=== PATIENT | male | born 1945 | race Hispanic/Latino ===

== ENCOUNTER 2017-08-28 11:24 | Emergency (ER) | payer MEDICARE ==
[~2017-08-28] VITALS: Ht 165.1 cm; Wt 85.7 kg
[~2017-08-28 11:24] MED LIST: ALLOPURINOL100 MG PO; ALLOPURINOL300 MG PO; ASPIR 8181 MG PO; ATORVASTATIN CA20 MG PO; BACLOFEN10 MG PO; BRILINTA90 MG; BRILINTA90 MG PO; CALCIUM ACETAT667 M1 PO; CALCIUM ACETAT667 MG PO; CEPHALEXIN500 MG PO; CLINDAMYCIN HC150 MG PO; CLONIDINE HCL0.1 MG PO; DIALYVITE TABL1 EACH PO; ECOTRIN325 MG PO; FERROUS SULFAT325 M1 PO; FLONASE16 GM; FUROSEMIDE40 MG PO; GABAPENTIN300 MG PO; GLIMEPIRIDE2 MG PO; HYDRALAZINE HCL50 MG PO; HYDROCODON-ACE1 EACH; LANTUS100 UNIT/1 SQ; LASIX40 MG PO; LIPITOR40 MG PO; METOCLOPRAMIDE10 MG PO; METOPROLOL TART25 MG PO; METOPROLOL TART50 MG PO; MIDODRINE HCL2.5 MG PO; NIFEDIPINE ER90 M1 PO; OMEPRAZOLE40 MG; OMEPRAZOLE40 MG PO; PENTOXIFYLLINE400 MG PO; PLAVIX75 MG PO; RENAGEL800 MG PO; RENVELA0.8 GM; RENVELA800 MG PO; SODIUM BICARBO650 MG PO; SYMBICORT 16010.2 GM INH; TOPROL XL25 MG PO; TUMS200 MG PO; ULTRAM50 MG PO; VITAMIN D350000 UNIT PO; ZEMPLAR1 MCG PO
[2017-08-28] MEDS ORDERED: FENTANYL CITRATE/PF 100MCG/2 ML INJ IV ONE (11:45)
[2017-08-28 12:06] LABS: BASOPHILS % 0.6 % (0.0-1.0); EOSINOPHILS # (AUTO) 0.2 (0.0-0.4); EOSINOPHILS % 3.1 % (0.0-6.0); HEMATOCRIT 35.6 % (38.2-49.6); LYMPHOCYTES # (AUTO) 0.8 (1.0-3.2); LYMPHOCYTES % 16.9 % (18.0-39.1); MEAN CORPUSCULAR HGB CONC 33.7 g/dL (31-35); MEAN CORPUSCULAR VOLUME 100.8 fL (81-99); MONOCYTES # (AUTO) 0.4 (0.2-0.8); MONOCYTES % 8.6 % (4.4-11.3); NEUTROPHILS # (AUTO) 3.4 (2.1-6.9); NEUTROPHILS % 70.4 % (38.7-80.0); PLATELET COUNT 118 x10e3/uL (140-360); RED BLOOD COUNT 3.53 x10e6/uL (4.3-5.7); RED CELL DISTRIBUTION WIDTH 14.6 % (11.7-14.4)
[2017-08-28 12:09] LABS: INR 1.1; PROTHROMBIN TIME 13.4 seconds (11.9-14.5)
[2017-08-28 12:10] LABS: PARTIAL THROMBOPLASTIN TIME 35.1 seconds (23.8-35.5)
[2017-08-28 12:17] LABS: ALBUMIN 3.8 g/dL (3.5-5.0); ALBUMIN/GLOBULIN RATIO 0.9 (0.8-2.0); ANION GAP 19.3 mmol/L (8-16); CALCIUM 9.3 mg/dL (8.4-10.2); CREATININE, SERUM 6.35 mg/dL (0.72-1.25); MAGNESIUM 2.3 MG/DL (1.3-2.1); PHOSPHORUS 3.3 MG/DL (2.3-4.7); POTASSIUM 4.3 mmol/L (3.5-5.1)
[2017-08-28 14:50] VITALS: BP 110/68
== END 2017-08-28 15:31 | disposition short-term general hospital (02) ==
LOC: ER 11:24
DX: M79.671 Pain in right foot (principal); R26.2 Difficulty in walking, not elsewhere classified; I99.8 Other disorder of circulatory system; I12.0 Hypertensive chronic kidney disease with stage 5 chronic kidney disease or end stage renal disease; N18.6 End stage renal disease; Z99.2 Dependence on renal dialysis; F17.210 Nicotine dependence, cigarettes, uncomplicated
CPT/HCPCS: 36415; 80053; 83735; 84100; 85025; 85610; 85730; 93926; 99284

== ENCOUNTER 2017-11-12 00:24 | Inpatient (IN) | payer MEDICARE ==
[2017-11-12] VITALS (7 sets, daily range): BP systolic 89–132; BP diastolic 51–84
[~2017-11-12] VITALS: Ht 165.1 cm; Wt 89.8 kg
--- OUTSIDE RECORDS SUMMARY | 2017-11-12 00:27 | XMS REPORT | Clinical Summary ---
Author Author NATI [facility] Address Unknown Phone Unavailable Care Team Providers Care Livestock Yard Attendant Name Role Phone PCP Unavailable Allergies Active Allergy Reactions Severity Noted Date Comments Codeine 09/04/2017 Current Medications Prescription Sig. Disp. Refills Start End Date Status Date gabapentin (NEURONTIN) Take 300 mg by mouth Active 300 MG capsule daily. sevelamer (RENVELA) 800 Take 1,600 mg by mouth 3 Active mg tablet (three) times daily with meals. aspirin 81 MG chewable Take 1 tablet (81 mg 30 tablet 3 09/05/19 Active tablet total) by mouth daily. 16 atorvastatin (LIPITOR) 40 Take 1 tablet (40 mg 30 tablet 3 09/05/19 Active MG tablet total) by mouth nightly. 16 midodrine (PROAMATINE) 5 Take 5 mg by mouth 3 Active MG tabletIndications: (three) times a week. before dialysis calcium acetate (PHOSLO) Take 667 mg by mouth 3 Active 667 mg capsule (three) times daily with meals. furosemide (LASIX) 40 MG Take 40 mg by mouth Take Active tablet one tablet Monday, Monday and Monday day of dialysis . HYDROcodone-acetaminophen Take 1 tablet by mouth Active (NORCO 10-325) 10-325 mg every 6 (six) hours as per tablet needed for Pain. insulin detemir (LEVEMIR) Inject 30 Units Active 100 unit/mL (3 mL) InPn subcutaneously every injection morning. metoclopramide HCl Take 10 mg by mouth 4 09/20/19 Discontin (REGLAN) 10 MG tablet (four) times daily as 18 ued needed for Nausea. pantoprazole (PROTONIX) Take 40 mg by mouth 09/20/19 Discontin 40 MG tablet daily. 18 ued furosemide (LASIX) 20 MG Take 40 mg by mouth every 09/20/19 Discontin tablet other day MON, WED, FRI. 18 ued DIALYSIS DAYS. benzonatate (TESSALON) Take 100 mg by mouth 08/28/19 Discontin 100 MG capsule every 4 (four) hours as 18 ued needed for Cough. insulin lispro (HUMALOG) Inject subcutaneously 3 08/28/19 Discontin 100 unit/mL injection (three) times daily 18 ued before meals. allopurinol (ZYLOPRIM) Take 1 tablet (300 mg 30 tablet 0 09/05/19 Discontin 300 MG tablet total) by mouth daily. 16 18 ued baclofen (LIORESAL) 10 MG Take 1 tablet (10 mg 30 tablet 3 09/05/19 08/28/19 Discontin tablet total) by mouth every 16 18 ued other day ON DIALYSIS DAYS. insulin detemir (LEVEMIR) Inject 30 Units 10 mL 0 09/05/19 09/20/19 Discontin 100 unit/mL injection subcutaneously nightly. 16 18 ued metoprolol (TOPROL-XL) 25 Take 0.5 tablets (12.5 mg 30 tablet 0 08/28/19 Discontin MG 24 hr tablet total) by mouth every 16 18 ued other day MON, MON, MON, SUN. NON DIALYSIS DAYS. clopidogrel (PLAVIX) 75 Take 75 mg by mouth 08/30/19 Discontin mg tablet daily. 18 ued HYDROcodone-acetaminophen Take 1 tablet by mouth 09/20/19 Discontin (NORCO 5-325) 5-325 mg every 4 (four) hours as 18 ued per tablet needed for Pain. ticagrelor (BRILINTA) 90 Take by mouth 2 (two) 08/28/19 Discontin mg Tab tablet times daily. 18 ued ticagrelor (BRILINTA) 90 Take 1 tablet (90 mg 30 tablet 0 08/30/19 09/14/19 Discontin mg Tab tablet total) by mouth 2 (two) 18 18 ued times daily. clopidogrel (PLAVIX) 75 Take 75 mg by mouth 09/14/19 Discontin mg tablet daily. 18 ued warfarin (COUMADIN) 1 MG Take 1 mg by mouth daily. 09/14/19 Discontin tablet 18 ued ticagrelor (BRILINTA) 60 Take 1 tablet (60 mg 60 tablet 0 09/14/19 10/14/19 mg Tab tablet total) by mouth 2 (two) 18 18 times daily for 30 days. pantoprazole (PROTONIX) Take 1 tablet (40 mg 30 tablet 0 09/20/19 40 MG tablet total) by mouth daily for 18 18 30 days. 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 ([facility]) 08/31/2015 Hypertension complicating diabetes ([facility]) 08/31/2015 ESRD (end stage renal disease) on dialysis ([facility]) 08/31/2015 Ischemic cardiomyopathy 08/31/2015 Chronic combined systolic and diastolic CHF (congestive heart failure) 08/31 ([facility]) Multi-vessel coronary artery stenosis 08/28/2015 Dialysis patient ([facility]) Encounters Date Type Specialty Care Team Description 09/19/2017 Office Visit Cardiology Naomi Olivas NP Chronic combined systolic and diastolic CHF (congestive heart failure) ([facility]) (Primary Dx) 09/07/2017 Procedure Pass 09/07/2017 Surgery Damaso Rey, BYPASS,FEMORAL-POPLITEAL 09/04/2017 [facility] Cardiology Reynaldo Stinson MD Critical ischemia of foot - Encounter Ace Foy MD (Primary Dx);Lower 09/15/2017 Arun Daigle MD extremity pain, anterior, LisseGeorge MD right;Bilateral popliteal artery aneurysm ([facility]);Dialysis patient ([facility]);End stage renal disease ([facility]);Ischemic rest pain of lower extremity ([facility]);Hypertension complicating diabetes ([facility]);Ischemic cardiomyopathy;Multi-vess el coronary artery stenosis;PAD (peripheral artery disease) ([facility]);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 ([facility]);Smoking;Hyperkalemi a 09/04/2017 Anesthesia BusterPhill MD Event 09/04/2017 Orders Only General Internal Medicine 09/04/2017 Procedure Pass 08/30/2017 Procedure Pass 08/28/2017 [facility] Internal Medicine Brendon Foy MD Chronic combined systolic - Encounter Shoshana Mai MD and diastolic CHF 08/30/2017 (congestive heart failure) (HCC);Aneurysm of right popliteal artery (HCC);Aneurysm of left popliteal artery (HCC);Atherosclerosis of qaw[place]angin artery of right lower extremity with rest pain (HCC);End stage renal disease (HCC);Bilateral popliteal artery aneurysm (HCC);Hypertension complicating diabetes (HCC);Ischemic cardiomyopathy;Ischemic rest pain of lower extremity (HCC) after 11/11/2016 Social History Tobacco Use Types Packs/Day Years Used Date Former Smoker 0.25 60 Quit: 08/22/2017 Smokeless Tobacco: Never Used Tobacco Cessation: Ready to Quit: Yes; Counseling Given: No Comments: i just need to say that I wont do it anymore Alcohol Use Drinks/Week oz/Week Comments No Sex Assigned at Date Recorded Not on file Last Filed Vital Signs Vital Sign Reading Time Taken Blood Pressure 128/58 09/19/2017 12:28 PM CDT Pulse 71 09/19/2017 12:28 PM CDT Temperature 37.1 C (98.8 F) 09/19/2017 12:28 PM CDT Respiratory Rate 16 09/19/2017 12:28 PM CDT Oxygen Saturation 100% 09/19/2017 12:28 PM CDT Inhaled Oxygen - - Concentration Weight 90.6 kg (199 lb 12.8 oz) 09/19/2017 12:28 PM CDT Height 165.1 cm (5' 5") 09/19/2017 12:28 PM CDT Body Mass Index 33.25 09/19/2017 12:28 PM CDT Plan of Treatment Health Maintenance Due Date Last Done Comments INFLUENZA VACCINE 04/09/2018 Implants Implanted Type Area Audio Tape Librarian Device Expiration Model / Identifier Date Serial / Lot Patch Vasc [place] 1.65mm 1x6in Graft/Patc Right: Leg CR 06/06/2022 [id number] / [id number] BARD:PERIPHERAL / Implanted: Qty: 1 on 09/07/[address] [facility] [id number] Damaso Rey MD [employer] 03/18/2016 [id number] Implanted: Qty: 1 on 09/04/2015 [employer] [id number] / / [id number] [employer] [place] 04/09/2016 [id number] Implanted: Qty: 1 on 09/04/2015 [employer] 0250 / / [id number] Procedures Procedure Name Priority Date/Time Associated Diagnosis Comments ENDOSCOPIC HARVEST,VEIN 09/07/2017 Popliteal artery aneurysm 11:30 AM SET KEY DRIVER (HCC) Case Notes RIGHT FEMORAL POPLITEAL BYPASS W/ENDOVENO HARVESTING LOWER EXTREMITY Special Needs (REQ 1:30) BYPASS,FEMORAL-POPLITEAL 09/07/2017 Popliteal artery aneurysm 11:30 AM SET KEY DRIVER (HCC) Case Notes RIGHT FEMORAL POPLITEAL BYPASS W/ENDOVENO HARVESTING LOWER EXTREMITY Special Needs (REQ 1:30) after 11/11/2016 Results * RHYTHM STRIP - SCAN (09/19/2017 7:50 AM) Only the most recent of 2 results within the time period is included. * Hemodialysis (09/15/2017 7:10 PM) Only the most recent of 6 results within the time period is included. Narrative Tito Jara RN 09/15/20177:10 PM Lab Results Component Value Date WBC 5.8 09/15/2017 HGB 9.0 (L) 09/15/2017 HCT 28.8 (L) 09/15/2017 MCV 104.3 (H) 09/15/2017 PLT 159 09/15/2017 Lab Results Component Value Date GLUCOSE 109 (H) 09/15/2017 CALCIUM 8.6 09/15/2017 NA 137 09/15/2017 K 4.2 09/15/2017 CO2 30 (H) 09/15/2017 CL 99 09/15/2017 BUN 42 (H) 09/15/2017 CREATININE 7.29 (H) 09/15/2017 Lab Results Component Value Date HEPBSAG Nonreactive 09/04/2017 Vitals: 09/15/17 1835 BP: 137/70 Pulse: 78 Resp: 24 Temp: 97.8 F (36.6 C) SpO2: HD x 4hrs. UF net 3L. Treatment tolerated well. V/S stable. * TRANSFUSION SERVICE REPORT - SCAN (09/15/2017 5:41 PM) Only the most recent of 7 results within the time period is included. * POC-Glucose meter (09/15/2017 12:47 PM) Only the most recent of 50 results within the time period is included. Component Value Ref Range POC-Glucose Meter 131 (H)Comment: TESTED AT [address] 70 - 110 mg /dL [facility] [address] Specimen Performing Laboratory Blood [address] [address] * Calcium, Ionized (09/15/2017 8:59 AM) Only the most recent of 4 results within the time period is included. Component Value Ref Range Calcium, Ion 1.02 (L) 1.12 - 1.27 mmol/L pH, Blood 7.39 Specimen [place]forming [place] [address] * CBC with platelet count + automated diff (09/15/2017 8:59 AM) Only the most recent of 14 results within the time period is included. Component Value Ref Range WBC 5.8 3.5 - 10.5 K/ L RBC 2.76 (L) 4.63 - 6.08 M/ L Hemoglobin 9.0 (L) 13.7 - 17.5 GM/DL Hematocrit 28.8 (L) 40.1 - 51.0 % MCV 104.3 (H) 79.0 - 92.2 fL MCH 32.6 (H) 25.7 - 32.2 pg MCHC 31.3 (L) 32.3 - 36.5 GM/DL RDW 18.5 (H) 11.6 - 14.4 % Platelets 159 150 - 450 K/CU MM MPV 9.9 9.4 - 12.4 fL nRBC 0 0 - 0 /100 WBC % Neutros 68 % % Lymphs 17 % % Monos 10 % % Eos 3 % % Baso 1 % # Neutros 3.93 1.78 - 5.38 K/ L # Lymphs 1.00 (L) 1.32 - 3.57 K/ L # Monos 0.56 0.30 - 0.82 K/ L # Eos 0.16 0.04 - 0.54 K/ L # Baso 0.03 0.01 - 0.08 K/ L Immature 1 0 - 1 % Granulocytes-Relative Specimen Performing [place] [address] * CBC with platelet count + automated diff (09/15/2017 8:59 AM) Only the most recent of 14 results within the time period is included. Specimen Performing Laboratory Blood Narrative The following orders were created for panel order CBC with platelet count + automated diff. Procedure Abnormality Status --------- - ------ CBC with platelet count ...[[id number]]AbnormalFinal result Please view results for these tests on the individual orders. * Phosphorus (09/15/2017 8:59 AM) Only the most recent of 9 results within the time period is included. Component Value Ref Range Phosphorus 3.1 2.3 - 4.7 mg/dL Specimen Performing [place] [address] * Magnesium (09/15/2017 8:59 AM) Only the most recent of 10 results within the time period is included. Component Value Ref Range Magnesium 2.0 1.6 - 2.6 mg/dL Specimen Performing [place] [address] * Basic Metabolic Panel (09/15/2017 8:59 AM) Only the most recent of 18 results within the time period is included. Component Value Ref Range Sodium 137 136 - 145 meq/L Potassium 4.2 3.5 - 5.1 meq/L Chloride 99 98 - 107 meq/L CO2 30 (H) 22 - 29 meq/L BUN 42 (H) 7 - 21 mg/dL Creatinine 7.29 (H) 0.57 - 1.25 mg/dL Glucose 109 (H) 70 - 105 mg/dL Calcium 8.6 8.4 - 10.2 mg/dL EGFR 7Comment: ESTIMATED GFR IS NOT ACCURATE mL/min/1.73 sq m CREATININE CLEARANCE IN PREDICTING GLOMERULAR FILTRATION RATE. ESTIMATED GFR IS NOT APPLICABLE FOR DIALYSIS PATIENTS. Specimen [place] [address] * Prepare Leuko-Red RBC (09/14/2017 11:54 PM) Only the most recent of 3 results within the time period is included. Component Value Ref Range Unit ABO O Pos UNIT NUMBER [id number] Status TRANSFUSED Blood Bank Product RED BLOOD CELLS PRODUCT CODE [id number] CROSSMATCH COMPATIBLE Specimen Performing Laboratory Other [facility] [place] * Transfuse Leuko-Red RBC (09/13/2017 1:03 PM) Only the most recent of 4 results within the time period is included. * Prepare RBC (09/13/2017 12:19 PM) Only the most recent of 2 results within the time period is included. Component Value Ref Range Unit ABO O Pos UNIT NUMBER [id number] Status READY Blood Bank Product RED BLOOD CELLS PRODUCT CODE [id number] CROSSMATCH COMPATIBLE Specimen Performing Laboratory [facility] [place] * Type and screen, automated (09/12/2017 10:23 AM) Only the most recent of 3 results within the time period is included. Component Value Ref Range ABO/RH AUTOMATED (BEAKER) O POSITIVE Ab Scrn NEGATIVE Specimen Performing Laboratory Blood [address] [address] * aPTT (09/09/2017 5:53 AM) Only the most recent of 20 results within the time period is included. Component Value Ref Range PTT 48.3 (H) 22.5 - 36.0 seconds Specimen Performing Laboratory Blood [address] [address] * Potassium (09/08/2017 12:52 PM) Component Value Ref Range Potassium 4.4 3.5 - 5.1 meq/L Specimen Performing Laboratory Blood [address] [address] * CBC (hemogram only) (09/08/2017 7:17 AM) Only the most recent of 3 results within the time period is included. Component Value Ref Range WBC 6.5 3.5 - 10.5 K/ L RBC 2.65 (L) 4.63 - 6.08 M/ L Hemoglobin 9.0 (L) 13.7 - 17.5 GM/DL Hematocrit 28.6 (L) 40.1 - 51.0 % MCV 107.9 (H) 79.0 - 92.2 fL MCH 34.0 (H) 25.7 - 32.2 pg MCHC 31.5 (L) 32.3 - 36.5 GM/DL RDW 14.8 (H) 11.6 - 14.4 % Platelets 104 (L) 150 - 450 K/CU MM MPV 10.3 9.4 - 12.4 fL nRBC 0 0 - 0 /100 WBC Specimen Performing Laboratory Blood [address] [address] * PT/aPTT (09/07/2017 9:05 PM) Only the most recent of 2 results within the time period is included. Component Value Ref Range Protime 14.6 11.7 - 14.7 seconds INR 1.1 <=5.9 PTT 40.4 (H) 22.5 - 36.0 seconds Specimen Performing Laboratory Blood [address] [address] Narrative RECOMMENDED COUMADIN/WARFARIN INR THERAPY RANGES STANDARD DOSE: 2.0 - 3.0 Includes: PROPHYLAXIS for venous thrombosis, systemic embolization; TREATMENT for venous thrombosis and/or pulmonary embolus. HIGH RISK: Target INR is 2.5-3.5 for patients with mechanical heart valves. * Prothrombin time/INR (09/07/2017 9:05 PM) Only the most recent of 5 results within the time period is included. Component Value Ref Range Protime 14.6 11.7 - 14.7 seconds INR 1.1 <=5.9 Specimen Performing Laboratory Blood [address] [address] Narrative RECOMMENDED COUMADIN/WARFARIN INR THERAPY RANGES STANDARD DOSE: 2.0 - 3.0 Includes: PROPHYLAXIS for venous thrombosis, systemic embolization; TREATMENT for venous thrombosis and/or pulmonary embolus. HIGH RISK: Target INR is 2.5-3.5 for patients with mechanical heart valves. * POC ACTIVATED CLOTTING TIME (09/07/2017 5:57 PM) Only the most recent of 2 results within the time period is included. Component Value Ref Range Activated Clotting Time 158Comment: TESTED AT [address] [place] [address] Specimen Performing Laboratory Blood [address] [address] * RRL Critical Labs (ABG,NA,K,H&H,GLU) (09/07/2017 5:13 PM) Only the most recent of 2 results within the time period is included. Specimen Performing Laboratory Blood Narrative The following orders were created for panel order RRL Critical Labs (ABG,NA,K,H& H,GLU). Procedure Abnormality Status --------- - ------ Blood gas, arterial[[id number]]Abnormal Final result Sodium Na-Stat Lab[[id number]] Abnormal Final result Potassium-Stat Lab[[id number]] Normal Final result Glucose-Stat Lab[[id number]] Abnormal Final result HGB/HCT (H&H)-Stat Lab[[id number]] Abnormal Final result Please view results for these tests on the individual orders. * Potassium-Stat Lab (09/07/2017 5:13 PM) Only the most recent of 2 results within the time period is included. Component Value Ref Range Potassium 4.7 3.6 - 5.5 meq/L Specimen Performing [place] [address] * Sodium Na-Stat Lab (09/07/2017 5:13 PM) Only the most recent of 2 results within the time period is included. Component Value Ref Range Sodium 134 (L) 135 - 148 meq/L Specimen Performing [place] [address] * Glucose-Stat Lab (09/07/2017 5:13 PM) Only the most recent of 2 results within the time period is included. Component Value Ref Range Glucose 66 (L) 70 - 110 mg/dL Specimen [place]forming [place] [address] * HGB/HCT (H&H)-Stat Lab (09/07/2017 5:13 PM) Only the most recent of 2 results within the time period is included. Component Value Ref Range Hemoglobin 10.4 (L) 13.0 - 16.8 g/dL Hematocrit 31.0 (L) 40.0 - 50.0 % Specimen Performing Laboratory Blood [address] [address] * Blood gas, arterial (09/07/2017 5:13 PM) Only the most recent of 2 results within the time period is included. Component Value Ref Range pH, Arterial 7.44 7.35 - 7.45 pCO2, Arterial 40 35 - 45 mmHg pO2, Arterial 123 (H) 80 - 90 mmHg O2 Sat, Arterial 98.7 (H) 96.0 - 97.0 % HCO3, Arterial 27 21 - 29 mmol/L Base Excess, Arterial 1.6 -2.0 - 3.0 mmol/L Patient Temperature 35.1 C FIO2 100.0 % Specimen Performing Laboratory Blood [facility] [address] [address] * ECHOCARDIOGRAM REPORT - SCAN (09/05/2017 6:50 PM) * 2D Echo W/Doppler(CW/PW/Color) (09/05/2017 12:15 PM) Component Value Ref Range Ejection Fraction Specimen Performing Laboratory [facility] ECHO HEARTLAB MKCKESSON CPACS Narrative Transthoracic Echocardiography Report (TTE) Demographics Patient NameSALINAS,Date of Study 09/05/2017 BRUNO Tidwell Male Visit [id number] Room Number 1110 Number Date of 4Referring Jun Mena Physician Age 72 year(s)Bank Appraiser JORGE LUIS Parra, RDCS,RVT,RDMS Interpreting Gabe Padilla MD Physician CECILE Tee Procedure Type of Study TTE procedure:2DECHO W DOPPLER(CW/PW/COLOR) (Routine) Indications:Acute Chest Pain/ Suspected CAD. Clinical History DMII, HTN, ICMP, PAD, CAD, ESRD HGB 10.5 HCT 32.1 % Height: 62 inches Weight: 88.9 kg (196 lbs) BSA: 1.9 m^2 BMI: 35.85 kg/m^2 HR: 75 bpm BP: 117/60 mmHg Summary The LV endocardium is partially visualized. Consider IV ultrasound enhancing agent for improved endocardial border detection. The left ventricle is chamber size (by vol index) is mildly enlarged. LVEF by Rosenbaum's method of disk assessment is severely reduced (20-24%) . The following segment(s) appear akinetic: inferolateral wall and likely apex. The other segments are severely hypokinetic. Grade 3 diastolic dysfunction (marked elevated LA pressure). Mild tricuspid regurgitation. Estimated peak systolic PA pressure is 55-60 mmHg . The estimated RA pressure by IVC dynamics 11-15mmHg . Signature Findings Left Ventricle The LV endocardium is partially visualized. Consider IV ultrasound enhancing agent for improved endocardial border detection. The left ventricle is chamber size (by vol index) is mildly enlarged. LVEF by Rosenbaum's method of disk assessment is severely reduced (20-24%) . The following segment(s) appear akinetic: inferolateral wall and likely apex. The other segments are severely hypokinetic. Grade 3 diastolic dysfunction ( marked elevated LA pressure). Left AtriumLA size is ndpa-td-tvncxbteto enlarged . Right VentricleRV chamber size is moderately enlarged . Global RV systolic function is depressed . Right Atrium RA cavity size is moderately enlarged . Aortic Valve Moderate AoV cusp thickening. Ywec-ue-jluvwywz AoV cusp calcification. Mild aortic stenosis. A trace of aortic regurgitation. Mitral Valve Dgoh-gx-hvqyelwf MV leaflet thickening. Mild mitral regurgitation. Tricuspid ValveMild TV leaflet thickening. Mild tricuspid regurgitation. Estimated peak systolic PA pressure is 55-60 mmHg . Pulmonic Valve PV is not well visualized; function appears normal by Doppler visualized. PericardiumNo significant pericardial effusion is visualized. IVC/SVC/PA/PV/PleuralThe estimated RA pressure by IVC dynamics 11-15mmHg . Chambers/Structures Left Atrium LA Volume: 75.69 ml LA Area: 23.53 cm^2 LA Vol. Index: 40 ml/m^2 Left Ventricle LVIDd: 6.31 cm LVIDs: 5.26 cm LV Septum Diastolic: 1.47 cm LV PW Diastolic: 1.66 cmLV FS: 16.6 % LVEDV Rosenbaum's:156.36 ml LVESV Rosenbaum's:117.65 ml LVEDVI: 82 ml/m^2 LVEF Rosenbaum's: 24.8 %LVESVI: 62 ml /m^2 LVOT Diameter: 2.08 cm Right Ventricle RV Diast Dim.: 4.96 cm Aorta Ao Root S of Lily.: 3.22 cm Vena Cava IVC Expirium: 2.11 cm Doppler/Quantitative Measurements Mitral Valve MV Peak E-Wave: 1.04 m/sMV Peak A-Wave: 0.34 m/s E/A Ratio: 3.06 Peak Gradient: 4.32 mmHg MV Alejandro. Peak: Tissue Doppler E' Lateral Velocity: 0.06 m/s E/E': 16.73 Aortic Valve Peak Velocity: 1.46 m/sMean Velocity: 1.03 m/s Peak Gradient: 8.53 mmHg Mean Gradient: 4.61 mmHg AV Area (continuity): 1.57 cm^2 AV VTI: 25.32 cm AV DVI: 0.46 LVOT Peak Velocity: 0.72 m/s Peak Gradient: 2.06 mmHg Mean Velocity: 0.44 m/s Mean Gradient: 0.9 mmHg LVOT Diameter: 2.08 cmLVOT VTI: 11.7 cm LVOT Area: 3.4 cm^2 LVOT SV:39.74 ml LVOT CO: 2.98 l/min LVOT CI: 1.57 l/min/m^2 Tricuspid Valve TR Velocity: 3.46 m/s TR Gradient: 47.83 mmHg Procedure Note Interface, External Ris In - 09/05/2017 6:20 PM SET KEY DRIVER Transthoracic Echocardiography Report (TTE) Demographics Patient Name PAUL, Date of Study 09/05/2017 BRUNO Tidwell Gender Male Visit Number [id number] Race Room Number 1110 Number Date of 1945 Referring Jun Mena Physician Age 72 year(s) Bank Appraiser JORGE LUIS Parra, RDCS,RVT,RDMS Interpreting Gabe Padilla MD Physician Fellow CECILE Lomas Procedure Type of Study TTE procedure:2DECHO W DOPPLER(CW/PW/COLOR) (Routine) Indications:Acute Chest Pain/ Suspected CAD. Clinical History DMII, HTN, ICMP, PAD, CAD, ESRD HGB 10.5 HCT 32.1 % Height: 62 inches Weight: 88.9 kg (196 lbs) BSA: 1.9 m^2 BMI: 35.85 kg/m^2 HR: 75 bpm BP: 117/60 mmHg Summary The LV endocardium is partially visualized. Consider IV ultrasound enhancing agent for improved endocardial border detection. The left ventricle is chamber size (by vol index) is mildly enlarged. LVEF by Rosenbaum's method of disk assessment is severely reduced (20-24%) . The following segment(s) appear akinetic: inferolateral wall and likely apex. The other segments are severely hypokinetic. Grade 3 diastolic dysfunction (marked elevated LA pressure). Mild tricuspid regurgitation. Estimated peak systolic PA pressure is 55-60 mmHg . The estimated RA pressure by IVC dynamics 11-15mmHg . Signature Findings Left Ventricle The LV endocardium is partially visualized. Consider IV ultrasound enhancing agent for improved endocardial border detection. The left ventricle is chamber size (by vol index) is mildly enlarged. LVEF by Rosenbaum's method of disk assessment is severely reduced (20-24%) . The following segment(s) appear akinetic: inferolateral wall and likely apex. The other segments are severely hypokinetic. Grade 3 diastolic dysfunction (marked elevated LA pressure). Left Atrium LA size is nhem-ky-ymufsrfytz enlarged . Right Ventricle RV chamber size is moderately enlarged . Global RV systolic function is depressed . Right Atrium RA cavity size is moderately enlarged . Aortic Valve Moderate AoV cusp thickening. Qvwk-is-bidyfsnn AoV cusp calcification. Mild aortic stenosis. A trace of aortic regurgitation. Mitral Valve Kjpj-rr-aadqsmjh MV leaflet thickening. Mild mitral regurgitation. Tricuspid Valve Mild TV leaflet thickening. Mild tricuspid regurgitation. Estimated peak systolic PA pressure is 55-60 mmHg . Pulmonic Valve PV is not well visualized; function appears normal by Doppler visualized. Pericardium No significant pericardial effusion is visualized. IVC/SVC/PA/PV/Pleural The estimated RA pressure by IVC dynamics 11-15mmHg . Chambers/Structures Left Atrium LA Volume: 75.69 ml LA Area: 23.53 cm^2 LA Vol. Index: 40 ml/m^2 Left Ventricle LVIDd: 6.31 cm LVIDs: 5.26 cm LV Septum Diastolic: 1.47 cm LV PW Diastolic: 1.66 cm LV FS: 16.6 % LVEDV Rosenbaum's:156.36 ml LVESV Rosenbaum's:117.65 ml LVEDVI: 82 ml/m^2 LVEF Rosenbaum's: 24.8 % LVESVI: 62 ml/m^2 LVOT Diameter: 2.08 cm Right Ventricle RV Diast Dim.: 4.96 cm Aorta Ao Root S of Lily.: 3.22 cm Vena Cava IVC Expirium: 2.11 cm Doppler/Quantitative Measurements Mitral Valve MV Peak E-Wave: 1.04 m/s MV Peak A-Wave: 0.34 m/s E/A Ratio: 3.06 Peak Gradient: 4.32 mmHg MV Alejandro. Peak: Tissue Doppler E' Lateral Velocity: 0.06 m/s E/E': 16.73 Aortic Valve Peak Velocity: 1.46 m/s Mean Velocity: 1.03 m/s Peak Gradient: 8.53 mmHg Mean Gradient: 4.61 mmHg AV Area (continuity): 1.57 cm^2 AV VTI: 25.32 cm AV DVI: 0.46 LVOT Peak Velocity: 0.72 m/s Peak Gradient: 2.06 mmHg Mean Velocity: 0.44 m/s Mean Gradient: 0.9 mmHg LVOT Diameter: 2.08 cm LVOT VTI: 11.7 cm LVOT Area: 3.4 cm^2 LVOT SV:39.74 ml LVOT CO: 2.98 l/min LVOT CI: 1.57 l/min/m^2 Tricuspid Valve TR Velocity: 3.46 m/s TR Gradient: 47.83 mmHg * ECG 12 lead (09/04/2017 7:51 PM) Only the most recent of 2 results within the time period is included. Specimen Performing Laboratory [facility] Narrative Ventricular Rate 71 BPM Atrial Rate 71 BPM P-R Interval 228 ms QRS Duration 146 ms Q-T Interval 454 ms QTC Calculation(Bazett) 493 ms R Atherton 31 degrees T Atherton 182 degrees Sinus rhythm with 1st degree A-V block Non-specific intra-ventricular conduction delay Abnormal ECG When compared with ECG of 28-AUG-2017 18:31, Significant changes have occurred Confirmed by MD Bunn Roberto ([id number]) on 09/05/2017 2:23:21 PM Procedure Note Interface, External Ris In - 09/05/2017 2:23 PM SET KEY DRIVER Ventricular Rate 71 BPM Atrial Rate 71 BPM P-R Interval 228 ms QRS Duration 146 ms Q-T Interval 454 ms QTC Calculation(Bazett) 493 ms R Atherton 31 degrees T Atherton 182 degrees Sinus rhythm with 1st degree A-V block Non-specific intra-ventricular conduction delay Abnormal ECG When compared with ECG of 28-AUG-2017 18:31, Significant changes have occurred Confirmed by MD Bunn Roberto ([id number]) on 09/05/2017 2:23:21 PM * Hepatitis B surface antigen (09/04/2017 2:09 PM) Only the most recent of 2 results within the time period is included. Component Value Ref Range hepatitis B Surface Ag Nonreactive Nonreactive Specimen Performing Laboratory Blood [address] [address] Narrative For chronic HD patients, draw HBsAg with each admission then every 30 days. * Platelet count (09/04/2017 2:09 PM) Component Value Ref Range Platelets 94 (L) 150 - 450 K/CU MM Specimen Performing Laboratory Blood [address] [address] * Lipid panel (09/04/2017 10:18 AM) Component Value Ref Range Triglycerides 196 mg/dL Cholesterol 85 mg/dL HDL 27 mg/dL LDL Calculated 19 mg/dL Specimen Performing Laboratory Blood [address] [address] Narrative Triglyceride Reference Range: Low Risk <150 [id number] High Risk 200-499 Very High Risk>=500 Cholesterol Reference Range: Low Risk <200 [id number] High Risk>240 HDL Cholesterol Reference Range: Low Risk >=60 High Risk <40 LDL Cholesterol Reference Range: Optimal<100 Near [id number] [id number] Very High >=190 * Iron, TIBC, % sat. (without ferritin) (08/29/2017 4:56 PM) Component Value Ref Range Iron 93 40 - 160 ug/dL TIBC 289 250 - 450 ug/dL Iron % Saturation 32 20 - 55 % Specimen Performing Laboratory [address] [address] * Hepatitis B core antibody, total (08/29/2017 4:56 PM) Component Value Ref Range Hep B Core Total Ab Nonreactive Nonreactive Specimen Performing Laboratory [address] [address] * Hepatitis B surface antibody (08/29/2017 4:56 PM) Component Value Ref Range Hep B S Ab 54.5 (H) <8.0 mIU/mL Specimen Performing Laboratory [address] [address] * Reticulocyte count (08/29/2017 4:56 PM) Component Value Ref Range % Retic 2.2 (H) 0.5 - 1.8 % Specimen Performing Laboratory [address] [address] * PTH, intact (08/29/2017 4:56 PM) Component Value Ref Range PTH 392.3 (H) 8.5 - 72.5 pg/mL Specimen Performing Laboratory [address] [address] * Ferritin (08/29/2017 4:56 PM) Component Value Ref Range Ferritin 1277 (H) 5 - 275 ng/mL Specimen Performing Laboratory [place] [id number] * PERIPHERAL VASCULAR REPORT - SCAN (08/29/2017 12:50 PM) * Vein Mapping Legs Bilateral (08/29/2017 10:55 AM) Component Value Ref Range Ejection Fraction Specimen Performing Laboratory SLE ECHO [facility] MKCKESSON CPACS Impressions Right Impression 1. There is no deep venous venous obstruction in the common femoral, profunda femoral, femoral, popliteal, posterior tibial or peroneal veins. 2. There is no superficial venous obstruction in the great saphenous vein. Left Impression 1. There is no deep venous obstruction in the common femoral, profunda femoral, femoral, popliteal, posterior tibial or peroneal veins. 2. There is no superficial venous obstruction in the great saphenous vein. Conclusions Summary Venous duplex imaging and compression of the bilateral lower extremities was performed. The veins were adequately visualized. The bilateral venous systems were patent and compressible with no evidence of thrombus. Superficial venous measurements are documented below. Signature Velocities are measured in cm/s ; Diameters are measured in cm LE Vein Mapping Superficial - Great Saphenous Vein Right Left + + + + + + ----+ + !Location ! !Diameter !Depth! ! Diameter!Depth ! + + + + + + ----+ + !GSV High Thigh ! !0.45 ! ! !0.63 ! ! + + + + + + ----+ + !GSV Mid Thigh ! !0.35 ! ! !0.41 ! ! + + + + + + ----+ + !GSV Low Thigh ! !0.38 ! ! !0.45 ! ! + + + + + + ----+ + !GSV Knee ! !0.4 ! ! !0.45! ! + + + + + + ----+ + !GSV High Calf ! !0.34 ! ! !0.36 ! ! + + + + + + ----+ + !GSV Mid Calf ! !0.32 ! ! ! 0.36! ! + + + + + + ----+ + !GSV Low Calf ! !0.41 ! ! ! 0.32! ! + + + + + + ----+ + Superficial - Lesser Saphenous Vein Right Left + + + + + + ----+ + !Location ! !Diameter !Depth! ! Diameter!Depth ! + + + + + + ----+ + !SSV High Calf ! !0.36 ! ! !0.22 ! ! + + + + + + ----+ + !SSV Mid Calf ! !0.24 ! ! ! 0.22! ! + + + + + + ----+ + !SSV Low Calf ! !0.27 ! ! ! 0.28! ! + + + + + + ----+ + Narrative [facility] - Lower Extremities Vein Mapping Demographics Patient Name HUMBERTO,Date of Study2017 BRUNO Tidwell [id number] Visit Number [id number] Male Accession Number [id number] Birth1945 Alisia Anna MD Room [id number] Physician Josemanuel WilhelmInterpreradha Rutherford MD, Physician RPELA Procedure Type of Study: Veins: Lower Extremity Vein Mapping, VEIN MAPPING, LOWER EXTREMITY, BILATERAL. Indications for Study:Pre-operational evaluation. Patient Status:MANUEL. Study Location:Vascular Lab. Technical Quality:Adequate visualization. Risk Factors History of Disease + +----+ + !Diagnosis!Date!Comments ! + +----+ + !History/Risk Factors:!!PAD, CAD, DM, HTN, CHF, Cardiomyopathy ! + +----+ + Procedure Note Interface, External Ris In - 08/29/2017 12:15 PM SET KEY DRIVER [facility] - Lower Extremities Vein Mapping Demographics Patient Name HUMBERTO, Date of Study 08/29/2017 BRUNO Tidwell Age 72 Visit Number [id number] Gender Male Accession Number [id number] Date of 1945 Referring Pau Anna MD Room Number 701 Physician Bank Appraiser Mega Wilhelm Interpreting John Rutherford MD, Physician RPELA Procedure Type of Study: Veins: Lower Extremity Vein Mapping, VEIN MAPPING, LOWER EXTREMITY, BILATERAL. Indications for Study:Pre-operational evaluation. Patient Status:MANUEL. Study Location:Vascular Lab. Technical Quality:Adequate visualization. Risk Factors History of Disease + +----+ + !Diagnosis !Date!Comments ! + +----+ + !History/Risk Factors: ! !PAD, CAD, DM, HTN, CHF, Cardiomyopathy ! + +----+ + Impressions Right Impression 1. There is no deep venous venous obstruction in the common femoral, profunda femoral, femoral, popliteal, posterior tibial or peroneal veins. 2. There is no superficial venous obstruction in the great saphenous vein. Left Impression 1. There is no deep venous obstruction in the common femoral, profunda femoral, femoral, popliteal, posterior tibial or peroneal veins. 2. There is no superficial venous obstruction in the great saphenous vein. Conclusions Summary Venous duplex imaging and compression of the bilateral lower extremities was performed. The veins were adequately visualized. The bilateral venous systems were patent and compressible with no evidence of thrombus. Superficial venous measurements are documented below. Signature Velocities are measured in cm/s ; Diameters are measured in cm LE Vein Mapping Superficial - Great Saphenous Vein Right Left + + + + + + ----+ + !Location ! !Diameter !Depth ! !Diameter !Depth ! + + + + + + ----+ + !GSV High Thigh ! !0.45 ! ! !0.63 ! ! + + + + + + ----+ + !GSV Mid Thigh ! !0.35 ! ! !0.41 ! ! + + + + + + ----+ + !GSV Low Thigh ! !0.38 ! ! !0.45 ! ! + + + + + + ----+ + !GSV Knee ! !0.4 ! ! !0.45 ! ! + + + + + + ----+ + !GSV High Calf ! !0.34 ! ! !0.36 ! ! + + + + + + ----+ + !GSV Mid Calf ! !0.32 ! ! !0.36 ! ! + + + + + + ----+ + !GSV Low Calf ! !0.41 ! ! !0.32 ! ! + + + + + + ----+ + Superficial - Lesser Saphenous Vein Right Left + + + + + + ----+ + !Location ! !Diameter !Depth ! !Diameter !Depth ! + + + + + + ----+ + !SSV High Calf ! !0.36 ! ! !0.22 ! ! + + + + + + ----+ + !SSV Mid Calf ! !0.24 ! ! !0.22 ! ! + + + + + + ----+ + !SSV Low Calf ! !0.27 ! ! !0.28 ! ! + + + + + + ----+ + * CTA AAA and Runoff (08/28/2017 11:42 PM) Specimen Performing Laboratory [facility] FINAL REPORT EXAMINATION: CTA, abdomen and pelvis and bilateral lower extremity INDICATION: Lower extremity arterial occlusion. TECHNIQUE: Axial noncontrast tomographic images were acquired through the abdomen and pelvis to evaluate for acute aortic mural hemorrhage. Following the administration of IV contrast, axial tomographic images were acquired during the early arterial phase of imaging through the abdomen, pelvis and bilateral lower extremities. Delayed images were also acquired through the abdomen to evaluate for aortic stent graft endoleak as well as through the lower extremities. Postprocessing was performed and coronal / sagittal reformatted images were created and reviewed. 3-dimensional rotational angiographic models of the aorta and bilateral lower extremity arteries were also created and reviewed. Dose reduction: The exam was performed according to our departmental dose optimization program which includes automated exposure control, adjustment of the mA and/or kV according to patient's size and/or use of iterative reconstructive technique. FINDINGS: Compared with CTA 10/02/2015 The heart is mildly enlarged. No evidence of a pericardial or pleural effusion. The left hemidiaphragm is mildly elevated. Minimal atelectasis or scarring is noted at the lung bases. There are multiple tiny gallstones within the gallbladder. There is subtle infiltration of the pericholecystic soft tissues. The bile ducts are decompressed. The pancreas is mildly atrophic with fatty infiltration. Tiny calcifications within the spleen are compatible with the sequela from remote granulomatous infection. The spleen is borderline enlarged measuring 12.7 cm. The left adrenal gland is associated with a stable 15 mm nodule. Hounsfield units for the nodule on the noncontrast study are indeterminate measuring greater than 20. Right adrenal gland is grossly unremarkable. The right kidney is have an end-stage appearance with severe bilateral cortical atrophy. The upper pole the left kidney is associated with a stable exophytic 1.5 cm nodule. The nodule is hyperdense on the noncontrast images. The Hounsfield units for the lesion are similar on the pre and postcontrast images No evidence of renal obstruction. Calcifications in the renal hilar regions are vascular. The stomach is grossly unremarkable. The loops of small bowel are normal in caliber. The appendix is decompressed. A a moderate volume of formed stool is noted throughout the colon suggesting a degree of dysmotility/constipation. Colonic diverticulosis is noted without definitive evidence of diverticulitis. The patient is status post endovascular repair of the aorta with stent graft placement. The stent graft is patent. The aneurysm sac measures approximately 4.1 cm in its greatest transverse diameter compared with chest radiograph 5 cm on the prior exam. On the delayed images, there is no definitive evidence of endoleak. The left iliac limb of the stent graft is patent and extends to the iliac bifurcation and appears well opposed. As before, the left common iliac limb is dilated measuring up to 2.8 cm, stable compared to the previous examination and appears well opposed. The right iliac limb is patent with stent extension into the right external iliac artery. The qawalangin iliac arteries are associated with diffuse calcific atherosclerosis including a moderate to high-grade stenosis at the origin of the left external iliac artery. The right internal iliac artery has been treated with embolization. The left renal artery arises just superior to the stent graft and is associated with calcific atherosclerotic plaques without definitive critical stenosis. The right main renal artery arises at the level of the superior margin of the stent and is also a patent but diffusely diseased vessel with extensive calcific atherosclerosis. Calcified atherosclerotic plaques are noted along the origins of the celiac and superior mesenteric arteries without definitive critical stenosis. No significant contrast is identified within the origin of the inferior mesenteric artery. The downstream MARIVEL appears to fill via collateral flow. Right lower extremity: The right common femoral artery is associated with atherosclerotic plaque which narrows the lumen by approximately 30-40%. Right superficial femoral artery occludes just downstream from its origin similar to the previous study. The right profunda femoris artery is patent but associated with diffuse calcific atherosclerosis. 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 The largest measures approximately 3.8 cm, slightly larger than on the previous examination (3.6 cm). Heterogeneous appearance of the aneurysms may reflect chronic calcification. Small volume flow within the aneurysms is difficult to completely exclude secondary to the absence of noncontrast imaging. The below-knee popliteal artery reconstitutes via collateral flow but is a diffusely diseased vessel. The anterior tibial artery occludes near its origin. The common peroneal trunk is diffusely diseased. The posterior tibial artery occludes at its origin. The peroneal artery is a diffusely diseased vessel but appears patent to the ankle. Absence of contrast within the dorsalis pedis artery may reflect timing of the contrast bolus or occlusion. The distal posterior tibial artery reconstitutes via collateral flow near the level the ankle. Left lower extremity: The left common femoral artery is associated with extensive calcific atherosclerotic plaque which results in approximately 30% luminal narrowing. 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 As before there are also multiple occluded aneurysms involving the left popliteal artery. The left profunda femoris artery is associated with diffuse calcific atherosclerotic plaque but opacifies with contrast. As before, the patient is status post a left femoral to below-knee bypass graft. At the distal graft anastomosis, an aneurysm is again noted. The aneurysm measures approximately 7 cm in its transverse diameter by 8.5 cm in length. The transverse diameter on the prior examination measured just greater than 3 cm. The downstream left anterior tibial artery occludes near its origin. The posterior tibial artery also occludes. The left peroneal artery opacifies with contrast but is a diffusely diseased vessel with multiple stenotic segments. The distal posterior tibial artery reconstitutes via collateral flow. There is also short segmental reconstitution of the dorsalis pedis artery. 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 IMPRESSION: Endovascular repair of the abdominal aorta with well opposed stent graft placement. No definite evidence of endoleak. Aneurysm sac has decreased in caliber compared with 10/02/2015. 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 Extensive bilateral lower extremity peripheral vascular disease as detailed above with chronic bilateral SFA occlusions. Left [id number] bypass graft is patent but associated with a large (7 cm x 8.5 cm) aneurysm at the distal anastomosis. The aneurysm has significantly increased in size compared to the previous study (3.6 cm). Cholelithiasis. Pericholecystic fat stranding, nonspecific and possibly chronic given the similar appearance on the previous examination. However, If there is clinical concern for gallbladder pathology consider ultrasound and/or nuclear medicine hepatobiliary imaging for further evaluation. Stable small 1.5 cm exophytic left renal nodule, probable hyperdense cyst. Stable indeterminate 1.5 cm left adrenal nodule. Signed: Pardeep Mathis MD Report Verified Date/Time:08/29/2017 02:27:01 Reading Location: [address] Reading Room Procedure Note Interface, External Ris In - 08/29/2017 2:29 AM SET KEY DRIVER FINAL REPORT EXAMINATION: CTA, abdomen and pelvis and bilateral lower extremity INDICATION: Lower extremity arterial occlusion. TECHNIQUE: Axial noncontrast tomographic images were acquired through the abdomen and pelvis to evaluate for acute aortic mural hemorrhage. Following the administration of IV contrast, axial tomographic images were acquired during the early arterial phase of imaging through the abdomen, pelvis and bilateral lower extremities. Delayed images were also acquired through the abdomen to evaluate for aortic stent graft endoleak as well as through the lower extremities. Postprocessing was performed and coronal / sagittal reformatted images were created and reviewed. 3-dimensional rotational angiographic models of the aorta and bilateral lower extremity arteries were also created and reviewed. Dose reduction: The exam was performed according to our departmental dose optimization program which includes automated exposure control, adjustment of the mA and/or kV according to patient's size and/or use of iterative reconstructive technique. FINDINGS: Compared with CTA 10/02/2015 The heart is mildly enlarged. No evidence of a pericardial or pleural effusion. The left hemidiaphragm is mildly elevated. Minimal atelectasis or scarring is noted at the lung bases. There are multiple tiny gallstones within the gallbladder. There is subtle infiltration of the pericholecystic soft tissues. The bile ducts are decompressed. The pancreas is mildly atrophic with fatty infiltration. Tiny calcifications within the spleen are compatible with the sequela from remote granulomatous infection. The spleen is borderline enlarged measuring 12.7 cm. The left adrenal gland is associated with a stable 15 mm nodule. Hounsfield units for the nodule on the noncontrast study are indeterminate measuring greater than 20. Right adrenal gland is grossly unremarkable. The right kidney is have an end-stage appearance with severe bilateral cortical atrophy. The upper pole the left kidney is associated with a stable exophytic 1.5 cm nodule. The nodule is hyperdense on the noncontrast images. The Hounsfield units for the lesion are similar on the pre and postcontrast images No evidence of renal obstruction. Calcifications in the renal hilar regions are vascular. The stomach is grossly unremarkable. The loops of small bowel are normal in caliber. The appendix is decompressed. A a moderate volume of formed stool is noted throughout the colon suggesting a degree of dysmotility/constipation. Colonic diverticulosis is noted without definitive evidence of diverticulitis. The patient is status post endovascular repair of the aorta with stent graft placement. The stent graft is patent. The aneurysm sac measures approximately 4.1 cm in its greatest transverse diameter compared with chest radiograph 5 cm on the prior exam. On the delayed images, there is no definitive evidence of endoleak. The left iliac limb of the stent graft is patent and extends to the iliac bifurcation and appears well opposed. As before, the left common iliac limb is dilated measuring up to 2.8 cm, stable compared to the previous examination and appears well opposed. The right iliac limb is patent with stent extension into the right external iliac artery. The qawalangin iliac arteries are associated with diffuse calcific atherosclerosis including a moderate to high-grade stenosis at the origin of the left external iliac artery. The right internal iliac artery has been treated with embolization. The left renal artery arises just superior to the stent graft and is associated with calcific atherosclerotic plaques without definitive critical stenosis. The right main renal artery arises at the level of the superior margin of the stent and is also a patent but diffusely diseased vessel with extensive calcific atherosclerosis. Calcified atherosclerotic plaques are noted along the origins of the celiac and superior mesenteric arteries without definitive critical stenosis. No significant contrast is identified within the origin of the inferior mesenteric artery. The downstream MARIVEL appears to fill via collateral flow. Right lower extremity: The right common femoral artery is associated with atherosclerotic plaque which narrows the lumen by approximately 30-40%. Right superficial femoral artery occludes just downstream from its origin similar to the previous study. The right profunda femoris artery is patent but associated with diffuse calcific atherosclerosis. 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 The largest measures approximately 3.8 cm, slightly larger than on the previous examination (3.6 cm). Heterogeneous appearance of the aneurysms may reflect chronic calcification. Small volume flow within the aneurysms is difficult to completely exclude secondary to the absence of noncontrast imaging. The below-knee popliteal artery reconstitutes via collateral flow but is a diffusely diseased vessel. The anterior tibial artery occludes near its origin. The common peroneal trunk is diffusely diseased. The posterior tibial artery occludes at its origin. The peroneal artery is a diffusely diseased vessel but appears patent to the ankle. Absence of contrast within the dorsalis pedis artery may reflect timing of the contrast bolus or occlusion. The distal posterior tibial artery reconstitutes via collateral flow near the level the ankle. Left lower extremity: The left common femoral artery is associated with extensive calcific atherosclerotic plaque which results in approximately 30% luminal narrowing. 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 As before there are also multiple occluded aneurysms involving the left popliteal artery. The left profunda femoris artery is associated with diffuse calcific atherosclerotic plaque but opacifies with contrast. As before, the patient is status post a left femoral to below-knee bypass graft. At the distal graft anastomosis, an aneurysm is again noted. The aneurysm measures approximately 7 cm in its transverse diameter by 8.5 cm in length. The transverse diameter on the prior examination measured just greater than 3 cm. The downstream left anterior tibial artery occludes near its origin. The posterior tibial artery also occludes. The left peroneal artery opacifies with contrast but is a diffusely diseased vessel with multiple stenotic segments. The distal posterior tibial artery reconstitutes via collateral flow. There is also short segmental reconstitution of the dorsalis pedis artery. 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 IMPRESSION: Endovascular repair of the abdominal aorta with well opposed stent graft placement. No definite evidence of endoleak. Aneurysm sac has decreased in caliber compared with 10/02/2015. 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 Extensive bilateral lower extremity peripheral vascular disease as detailed above with chronic bilateral SFA occlusions. Left [id number] bypass graft is patent but associated with a large (7 cm x 8.5 cm) aneurysm at the distal anastomosis. The aneurysm has significantly increased in size compared to the previous study (3.6 cm). Cholelithiasis. Pericholecystic fat stranding, nonspecific and possibly chronic given the similar appearance on the previous examination. However, If there is clinical concern for gallbladder pathology consider ultrasound and/or nuclear medicine hepatobiliary imaging for further evaluation. Stable small 1.5 cm exophytic left renal nodule, probable hyperdense cyst. Stable indeterminate 1.5 cm left adrenal nodule. Signed: Pardeep Mathis MD Report Verified Date/Time: 08/29/2017 02:27:01 Reading Location: [address] Reading Room after 11/11/2016
--- OUTSIDE RECORDS SUMMARY | 2017-11-12 00:27 | XMS REPORT | Continuity of Care Document ---
Author Author [facility] Organization [facility] Address [address] [place] [address] Phone Unavailable Care Team Providers Care Regional Economic Liaison Name Role Phone PADDY THORPE MD PCP Insurance Providers Guarantor Bruno Sharif Address [address] [place] [address] Email PTDECLINED Payer [facility] Policy Number [id number] Subscriber's Name Sharif,Bruno Tidwell Relationship 18 Self / Same As Patient Effective Date 17 Payer [employer] Medicare Advantage Policy Number [id number] Subscriber's Name SharifMell samsonquang Tidwell Relationship 18 Self / Same As Patient Group Number [id number] Group Name RETIRED Effective Date 16 Advance Directives Directive Response Recorded Date/Time Does the patient have an advance directive? No 10/04/16 10:28pm If yes, is advance directive on file with [facility]? No 10/04/16 10:28pm If not on file with [facility] will patient provide a copy? No 12/12/16 5:17am Do you have a Directive to Physician? No 08/28/17 12:25pm Do you have a Medical Power of Director Cost? No 08/28/17 12:25pm Do you have an out of hospital Do Not Resuscitate Order? No 08/28/17 12:25pm Do you have any special needs we should be aware of? No 08/28/17 12:25pm Do you have a support person here with you today? Yes 08/28/17 12:25pm Did patient receive Notice of Privacy Practices? Yes 08/28/17 12:25pm Did patient receive patient rights and responsibilities? 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 Anemia 08/15/2014 Acute Anemia 12/19/2015 Acute Anemia 12/19/2015 Acute Aortic aneurysm rupture Unknown Acute CHF (congestive heart failure) 08/08/2015 Acute CHF (congestive heart failure) 08/24/2015 Acute Cholelithiases 08/15/2014 Acute Congestive heart disease 08/15/2014 Acute ESRD (end stage renal disease) on dialysis 08/08/2015 Acute ESRD (end stage renal disease) on dialysis 12/19/2015 Acute ESRD (end stage renal disease) on dialysis 12/19/2015 Acute End stage renal disease 08/15/2014 Acute Hypoxia 08/15/2014 Acute Non-STEMI (non-ST elevated myocardial infarction) 08/08/2015 Acute Pharyngeal abscess 12/19/2015 Acute Pharyngitis 12/19/2015 Acute Pharyngitis 12/19/2015 Acute Pleural effusion 08/15/2014 Acute Pulmonary edema 08/08/2015 Acute Tonsillar abscess 12/19/2015 Acute Tonsillar abscess 12/19/2015 Acute Medications Current Home Medications Medication Dose Units Route Directions Days Qty Instructions Start Date Allopurinol 100 Mg Tablet 100 Mg Oral Daily 30 Tab Aspirin (Aspir 81) 81 Mg Tablet.dr 81 Mg Oral Daily Atorvastatin Calcium 20 Mg Tablet 40 Mg Oral Today At 9:00PM Budesonide/Formoterol Fumarate (Symbicort 160-4.5 Mcg Inhaler) 10.2 Gm Hfa.aer.ad 2 Inh Inhalation Twice A Day as needed for Shortness Of Breath Calcium Acetate 667 Mg Tablet 667 Mg Oral Three Times Daily With Meals Folic Acid/Vitamin B Comp W-C (Dialyvite Tablet) 1 Each Tablet 1 Tab Oral Daily Insulin Glargine,Hum.rec.anlog (Lantus) 100 Unit/1 Ml Cartridge 30 Units Sub -Q Daily TAKES WHEN GLUCOSE ELEVATED Midodrine Hcl 2.5 Mg Tablet 5 Mg Oral Bedtime Sevelamer Hcl (Renagel) 800 Mg Tablet 1,600 Mg Oral Three Times Daily With Meals Ticagrelor (Brilinta) 90 Mg Tablet 90 Mg Oral Twice A Day Past Home Medications Medication Directions Ordered Status Allopurinol 300 Mg Tablet, 300 Mg Oral Daily Discontinued Aspirin (Ecotrin) 325 Mg Tablet.dr, 162.5 Mg Oral Bedtime Discontinued Atorvastatin Calcium 20 Mg Tablet, 20 Mg Oral Today At 9:00PM 12/22/15 Discontinued Atorvastatin Calcium (Lipitor) 40 Mg Tablet, 40 Mg Oral Bedtime Discontinued Baclofen 10 Mg Tablet, 10 Mg Oral Daily Discontinued Calcium Acetate 667 Mg Capsule, 2000 Mg Oral Three Times Daily With Meals Discontinued Calcium Carbonate (Tums) 200 Mg Tab.chew, 3 Tab Oral Three Times Daily With Meals Discontinued Cephalexin 500 Mg Capsule, 500 Mg Oral Three Times A Day Discontinued Cephalexin 500 Mg Capsule, 500 Mg Oral Three Times A Day Discontinued Cholecalciferol (Vitamin D3) (Vitamin D3) 50,000 Unit Capsule, 09104 Units Oral Monthly Discontinued Clindamycin Hcl 150 Mg Capsule, 300 Mg Oral Three Times A Day 12/22/15 Discontinued Clonidine Hcl 0.1 Mg Tablet, 0.1 Mg Oral Three Times A Day Discontinued Clopidogrel Bisulfate (Plavix) 75 Mg Tablet, 75 Mg Oral Daily Discontinued Ferrous Sulfate 325 Mg Tablet.dr, 1 Tab Oral Twice A Day Discontinued Fluticasone Propionate (Flonase) 16 Gm [place].susp, 16 Gm Nasal Discontinued Furosemide (Lasix) 40 Mg Tablet, 40 Mg Oral Use As Directed Discontinued Furosemide 40 Mg Tablet, 40 Mg Oral Daily Discontinued Furosemide (Lasix) 40 Mg Tablet, 40 Mg Oral Twice A Day Discontinued Gabapentin 300 Mg Capsule, 300 Mg Oral Daily Discontinued Glimepiride 2 Mg Tablet, 2 Mg Oral Twice A Day Discontinued Hydralazine Hcl 50 Mg Tablet, 50 Mg Oral Three Times A Day Discontinued Hydrocodone Bit/Acetaminophen (Hydrocodon-Acetaminophen 5-500) 1 Each Capsule, Discontinued Metoclopramide Hcl 10 Mg Tablet, 10 Mg Oral Three Times A Day Discontinued Metoprolol Succinate (Toprol Xl) 25 Mg Tab.er.24h, 12.5 Mg Oral Use As Directed Discontinued Metoprolol Tartrate 50 Mg Tablet, 50 Mg Oral Daily Bedtime Discontinued Metoprolol Tartrate 25 Mg Tablet, 0.5 Mg Oral Twice A Day Discontinued Metoprolol Tartrate 50 Mg Tablet, 50 Mg Oral Daily In Am Discontinued Nifedipine (Nifedipine Er) 90 Mg Tab.er.24, 90 Mg Oral Daily Discontinued Omeprazole 40 Mg Capsule.dr, Discontinued Omeprazole 40 Mg Capsule.dr, 40 Mg Oral Daily Discontinued Paricalcitol (Zemplar) 1 Mcg Capsule, 1 Mcg Oral Daily Discontinued Pentoxifylline 400 Mg Tablet.er, 400 Mg Oral Twice A Day Discontinued Sevelamer Carbonate (Renvela) 0.8 Gm Powd.pack, Discontinued Sevelamer Hcl (Renvela) 800 Mg Tab, 1600 Mg Oral Three Times Daily With Meals 08/12/15 Discontinued Sodium Bicarbonate 650 Mg Tablet, 650 Mg Oral Daily Discontinued Ticagrelor (Brilinta) 90 Mg Tablet, Discontinued Tramadol Hcl (Ultram) 50 Mg Tablet, 50 Mg Oral Twice A Day Discontinued Family History Relationship Condition Age at Onset Recorded Date/Time Not Specified Family history of hemophilia Not Recorded 08/15/2014 11:43am 09 Brother FH: cancer of digestive organ Not Recorded 08/08/2015 6:00am 09 Brother FH: cirrhosis Not Recorded 08/15/2014 11:43am 09 Brother Family history of brain damage Not Recorded 08/15/2014 11:42am 09 Brother Family history of diabetes mellitus Unknown 08/15/2014 11:41am 32 Mother FH: Alzheimers disease Not Recorded 08/15/2014 11:42am 32 Mother Family history of diabetes mellitus Not Recorded 08/15/2014 11: 41am 32 Mother Family history of hypertension Not Recorded 08/15/2014 11:42am 09 Sister Family history of hypertension Not Recorded 08/15/2014 11:42am 09 Sister Family history of vertigo Not Recorded 08/15/2014 11:44am Social History Social History Problem Response Recorded Date/Time Onset Date Status Hx Psychiatric Problems No 10/04/2016 10:28pm Not Applicable Not Applicable Hx Eating Disorder No 10/04/2016 10:28pm Not Applicable Not Applicable Hx Substance Use Disorder No 10/04/2016 10:28pm Not Applicable Not Applicable Hx Depression No 10/04/2016 10:28pm Not Applicable Not Applicable Hx Alcohol Use No 10/04/2016 10:28pm Not Applicable Not Applicable Hx Substance Use Treatment No 10/04/2016 10:28pm Not Applicable Not Applicable Hx Physical Abuse No 10/04/2016 10:28pm Not Applicable Not Applicable Smoking Status Start Date Stop Date Never Smoker Hospital Discharge Instructions No hospital discharge instruction information available. Plan of Care Discharge Date 08/28/17 3:31pm Disposition TRANS TO OTHER [facility] Condition at Discharge Stable Forms Provided Work/School Excuse Prescriptions See Medication Section Functional Status No functional status information available. Allergies, Adverse Reactions, Alerts No known allergies. Immunizations No immunization information available. Vital Signs Acute Vital Signs Vital Response Date/Time Temperature (Fahrenheit) 97.5 degrees F (97.6 - 99.5) 08/28/2017 2:50pm Pulse Pulse Rate (adult) 65 bpm (60 - 90) 08/28/2017 2:50pm Respiratory Rate 18 bpm (12 - 24) 08/28/2017 2:50pm Blood Pressure 110/68 mm Hg 08/28/2017 2:50pm Height 5 ft 5 in 08/28/2017 11:35am Weight 189 lb 08/28/2017 11:35am Body Mass Index 31.5 kg/m^2 08/28/2017 11:35am Results Laboratory Results Test Name Result Units Flags Reference Collection Date/Time Result Date/ Time Comments Differential Total Cells Counted 100 12/12/2016 4:50am 12/12/2016 7 :35am Neutrophils % (Manual) 64 % 40-74 12/12/2016 4:50am 12/12/2016 7:35am Lymphocytes % (Manual) 14 % L 19-48 12/12/2016 4:50am 12/12/2016 7:35am Monocytes % (Manual) 10 % H 3.4-9.0 12/12/2016 4:50am 12/12/2016 7:35am Eosinophils % (Manual) 8 % H 0-7 12/12/2016 4:50am 12/12/2016 7:35am Reactive Lymphocytes 4 12/12/2016 4:50am 12/12/2016 7:35am Platelet Estimate SLIGHTLY DECREASED 12/12/2016 4:50am 12/12/2016 7 :35am Platelet Morphology Comment FEW LARGE 12/12/2016 4:50am 12/12/2016 7:35am Red Cell Morphology Comment NORMAL 12/12/2016 4:50am 12/12/2016 7: 35am White Blood Count 4.78 x10e3/uL L 4.8-10.8 08/28/2017 11:50am 2017 12:06pm Red Blood Count 3.53 x10e6/uL L 4.3-5.7 08/28/2017 11:50am 08/28/2017 12 :06pm Hemoglobin 12.0 g/dL L 14.0-18.0 08/28/2017 11:50am 08/28/2017 12:06pm Hematocrit 35.6 % L 38.2-49.6 08/28/2017 11:50am 08/28/2017 12:06pm Mean Corpuscular Volume 100.8 fL H 81-99 08/28/2017 11:50am 08/28/2017 12:06pm Mean Corpuscular Hemoglobin 34.0 pg H 28-32 08/28/2017 11:50am 2017 12:06pm Mean Corpuscular Hemoglobin Concent 33.7 g/dL 31-35 08/28/2017 11:50am 08/28/2017 12:06pm Red Cell Distribution Width 14.6 % H 11.7-14.4 08/28/2017 11:502017 12:06pm Platelet Count 118 x10e3/uL L 140-360 08/28/2017 11:5008/28/2017 12: 06pm Neutrophils (%) (Auto) 70.4 % 38.7-80.0 08/28/2017 11:50am 08/28/2017 12:06pm Lymphocytes (%) (Auto) 16.9 % L 18.0-39.1 08/28/2017 11:50am 08/28/2017 12:06pm Monocytes (%) (Auto) 8.6 % 4.4-11.3 08/28/2017 11:5008/28/2017 12: 06pm Eosinophils (%) (Auto) 3.1 % 0.0-6.0 08/28/2017 11:50am 08/28/2017 12: 06pm Basophils (%) (Auto) 0.6 % 0.0-1.0 08/28/2017 11:5008/28/2017 12: 06pm IM GRANULOCYTES % 0.4 % 0.0-1.0 08/28/2017 11:50am 08/28/2017 12:06pm Neutrophils # (Auto) 3.4 2.1-6.9 08/28/2017 11:50am 08/28/2017 12: 06pm Lymphocytes # (Auto) 0.8 L 1.0-3.2 08/28/2017 11:50am 08/28/2017 12: 06pm Monocytes # (Auto) 0.4 0.2-0.8 08/28/2017 11:50am 08/28/2017 12:06pm Eosinophils # (Auto) 0.2 0.0-0.4 08/28/2017 11:50am 08/28/2017 12: 06pm Basophils # (Auto) 0.0 0.0-0.1 08/28/2017 11:50am 08/28/2017 12:06pm Absolute Immature Granulocyte (auto 0.02 x10e3/uL 0-0.1 08/28/2017 11: 50am 08/28/2017 12:06pm Prothrombin Time 13.4 seconds 11.9-14.5 08/28/2017 11:50am 08/28/2017 12:11pm Prothromb Time International Ratio 1.10 08/28/2017 11:50am 2017 12:11pm Oral Anticoagulant Therapy INR Values: 1. Low Intensity Therapy 1.5 - 2.0 2. Moderate Intensity Therapy 2.0 - 3.0 3. High Intensity Therapy(1) 2.5 - 3.5 4. High Intensity Therapy(2) 3.0 - 4.0 5. Panic Value INR > 5.0 Activated Partial Thromboplast Time 35.1 seconds 23.8-35.5 08/28/2017 11 :50am 08/28/2017 12:11pm Sodium Level 139 mmol/L 136-145 08/28/2017 11:5008/28/2017 12:21pm Potassium Level 4.3 mmol/L 3.5-5.1 08/28/2017 11:5008/28/2017 12: 21pm Chloride Level 93 mmol/L L 98-107 08/28/2017 11:50am 08/28/2017 12:21pm Carbon Dioxide Level 31 mmol/L H 22-08/28/2017 11:50am 08/28/2017 12: 21pm Anion Gap 19.3 mmol/L H 8-16 08/28/2017 11:50am 08/28/2017 12:21pm Blood Urea Nitrogen 33 mg/dL H 7-26 08/28/2017 11:50am 08/28/2017 12: 21pm Creatinine 6.35 mg/dL H 0.72-1.25 08/28/2017 11:50am 08/28/2017 12:21pm BUN/Creatinine Ratio 5 L 6-25 08/28/2017 11:50am 08/28/2017 12:21pm Estimat Glomerular Filtration Rate 9 ML/MIN L 60- 08/28/2017 11:50am 12:21pm Ranges were taken from the National Kidney Disease Education Program and the National Kid[employer] literature. Reference ranges: 60 or greater: Normal 16-59 (for 3 consecutive months): Chronic kidney disease 15 or less: Kidney failure Glucose Level 146 mg/dL H 74-118 08/28/2017 11:50am 08/28/2017 12:21pm Calcium Level 9.3 mg/dL 8.4-10.2 08/28/2017 11:50am 08/28/2017 12:21pm Phosphorus Level 3.3 MG/DL 2.3-4.7 08/28/2017 11:5008/28/2017 12: 21pm Magnesium Level 2.3 MG/DL H 1.3-2.1 08/28/2017 11:5008/28/2017 12: 21pm Total Bilirubin 1.8 mg/dL H 0.2-1.2 08/28/2017 11:5008/28/2017 12: 21pm Aspartate Amino Transf (AST/SGOT) 19 IU/L 5-34 08/28/2017 11:50am 08/28 12:21pm Alanine Aminotransferase (ALT/SGPT) 21 IU/L 0-55 08/28/2017 11:50 12:21pm Total Protein 8.2 g/dL H 6.5-8.1 08/28/2017 11:50am 08/28/2017 12:21pm Albumin 3.8 g/dL 3.5-5.0 08/28/2017 11:50am 08/28/2017 12:21pm Globulin 4.4 g/dL H 2.3-3.5 08/28/2017 11:50am 08/28/2017 12:21pm Albumin/Globulin Ratio 0.9 0.8-2.0 08/28/2017 11:50am 08/28/2017 12: 21pm Alkaline Phosphatase 128 IU/L 40-150 08/28/2017 11:50am 08/28/2017 12: 21pm Procedures No procedure information available. Encounters Encounter Location Arrival/Admit Date Discharge/Depart Date Attending Provider Departed Emergency Room [facility] 08/28/17 11:24am 08/28 3:31pm MIMA HERNANDEZ MD Departed Emergency Room [facility] 12/12/16 4:34am 5:42am BELÉN ODONNELL MD
--- OUTSIDE RECORDS SUMMARY | 2017-11-12 00:28 | XMS REPORT ---
Author Author [facility] Address Unknown Phone Unavailable Care Team Providers Care Vice President Of Finance Name Role Phone LIOR BAUER Unavailable Unavailable REKHA SOW Unavailable Unavailable Problems This patient has no known problems. Allergies, Adverse Reactions, Alerts This patient has no known allergies or adverse reactions. Medications This patient has no known medications. Results Test Description Test Time Test Comments Text Results Atomic Results Result Comments POCT-GLUCOSE METER 2017-09-15 12:54:00 POC-GLUCOSE METER (BEAKER) (test grpb=7360) 131 mg/dL 70-110 TESTED AT [facility] [address] [place] [id number] BASIC METABOLIC [id number] 10:00:00* Test Item Value Reference Range Comments SODIUM (BEAKER) (test hatc=155) 137 meq/L 136-145 POTASSIUM (BEAKER) (test ftyv=875) 4.2 meq/L 3.5-5.1 CHLORIDE (BEAKER) (test iitm=888) 99 meq/L 98-107 CO2 (BEAKER) (test bngu=987) 30 meq/L 22-29 BLOOD UREA NITROGEN (BEAKER) (test sdis=166) 42 mg/dL 7-21 CREATININE (BEAKER) (test hsrz=890) 7.29 mg/dL 0.57-1.25 GLUCOSE RANDOM (BEAKER) (test mtgm=904) 109 mg/dL 70-105 CALCIUM (BEAKER) (test fcgd=825) 8.6 mg/dL 8.4-10.2 EGFR (BEAKER) (test jzve=6041) 7 mL/min/1.73 sq m ESTIMATED GFR IS NOT ACCURATE CREATININE CLEARANCE IN PREDICTING GLOMERULAR FILTRATION RATE. ESTIMATED GFR IS NOT APPLICABLE FOR DIALYSIS PATIENTS. [id number] 09:54:00* Test Item Value Reference Range Comments PHOSPHORUS (BEAKER) (test yolq=192) 3.1 mg/dL 2.3-4.7 [id number] 09:54:00* Test Item Value Reference Range Comments MAGNESIUM (BEAKER) (test bvcj=469) 2.0 mg/dL 1.6-2.6 CBC W/PLT COUNT & AUTO [id number] 09:35:00* Test Item Value Reference Range Comments WHITE BLOOD CELL COUNT (BEAKER) (test gesl=800) 5.8 K/ L 3.5-10.5 RED BLOOD CELL COUNT (BEAKER) (test zndo=632) 2.76 M/ L 4.63-6.08 HEMOGLOBIN (BEAKER) (test lkvh=715) 9.0 GM/DL 13.7-17.5 HEMATOCRIT (BEAKER) (test gmor=199) 28.8 % 40.1-51.0 MEAN CORPUSCULAR VOLUME (BEAKER) (test oxnc=160) 104.3 fL 79.0-92.2 MEAN CORPUSCULAR HEMOGLOBIN (BEAKER) (test yjgq=695) 32.6 pg 25.7-32.2 MEAN CORPUSCULAR HEMOGLOBIN CONC (BEAKER) (test ieuu=183) 31.3 GM/DL 32.3- 36.5 RED CELL DISTRIBUTION WIDTH (BEAKER) (test rjzr=755) 18.5 % 11.6-14.4 PLATELET COUNT (BEAKER) (test vwhn=226) 159 K/CU MM 150-450 MEAN PLATELET VOLUME (BEAKER) (test ibtd=171) 9.9 fL 9.4-12.4 NUCLEATED RED BLOOD CELLS (BEAKER) (test ezkt=896) 0 /100 WBC 0-0 NEUTROPHILS RELATIVE PERCENT (BEAKER) (test zcyg=718) 68 % LYMPHOCYTES RELATIVE PERCENT (BEAKER) (test pzwm=727) 17 % MONOCYTES RELATIVE PERCENT (BEAKER) (test ihkl=712) 10 % EOSINOPHILS RELATIVE PERCENT (BEAKER) (test sarr=990) 3 % BASOPHILS RELATIVE PERCENT (BEAKER) (test tncu=335) 1 % NEUTROPHILS ABSOLUTE COUNT (BEAKER) (test viuw=460) 3.93 K/ L 1.78-5.38 LYMPHOCYTES ABSOLUTE COUNT (BEAKER) (test esuh=896) 1.00 K/ L 1.32-3.57 MONOCYTES ABSOLUTE COUNT (BEAKER) (test aqsy=554) 0.56 K/ L 0.30-0.82 EOSINOPHILS ABSOLUTE COUNT (BEAKER) (test gibn=119) 0.16 K/ L 0.04-0.54 BASOPHILS ABSOLUTE COUNT (BEAKER) (test wwkr=069) 0.03 K/ L 0.01-0.08 IMMATURE GRANULOCYTES-RELATIVE PERCENT (BEAKER) (test cywe=4622) 1 % 0-1 CALCIUM, [id number] 09:10:00* Test Item Value Reference Range Comments CALCIUM IONIZED (BEAKER) (test ypts=969) 1.02 mmol/L 1.12-1.27 PH, BLOOD (BEAKER) (test bbvc=3799) 7.39 POCT-GLUCOSE [id number] 07:33:00* Test Item Value Reference Range Comments POC-GLUCOSE METER (BEAKER) (test soqk=7764) 95 mg/dL 70-110 TESTED AT [place] [id number] POCT-GLUCOSE [id number] 21:50:00* Test Item Value Reference Range Comments POC-GLUCOSE METER (BEAKER) (test wgly=8014) 139 mg/dL 70-110 TESTED AT [address] [address] POCT-GLUCOSE [id number] 18:08:00* Test Item Value Reference Range Comments POC-GLUCOSE METER (BEAKER) (test zfat=8955) 108 mg/dL 70-110 TESTED AT [address] [address] POCT-GLUCOSE [id number] 12:05:00* Test Item Value Reference Range Comments POC-GLUCOSE METER (BEAKER) (test gnmw=8495) 115 mg/dL 70-110 TESTED AT [address] [address] POCT-GLUCOSE [id number] 09:21:00* Test Item Value Reference Range Comments POC-GLUCOSE METER (BEAKER) (test wsux=2722) 128 mg/dL 70-110 TESTED AT [address] [address] BASIC METABOLIC [id number] 08:36:00* Test Item Value Reference Range Comments SODIUM (BEAKER) (test uyen=068) 138 meq/L 136-145 POTASSIUM (BEAKER) (test ncgs=738) 3.8 meq/L 3.5-5.1 CHLORIDE (BEAKER) (test tcyh=753) 100 meq/L 98-107 CO2 (BEAKER) (test gcpw=620) 28 meq/L 22-29 BLOOD UREA NITROGEN (BEAKER) (test lzts=375) 20 mg/dL 7-21 CREATININE (BEAKER) (test hfjq=412) 4.62 mg/dL 0.57-1.25 GLUCOSE RANDOM (BEAKER) (test itoq=286) 88 mg/dL 70-105 CALCIUM (BEAKER) (test ahuy=703) 8.6 mg/dL 8.4-10.2 EGFR (BEAKER) (test jbzg=7724) 12 mL/min/1.73 sq m ESTIMATED GFR IS NOT ACCURATE CREATININE CLEARANCE IN PREDICTING GLOMERULAR FILTRATION RATE. ESTIMATED GFR IS NOT APPLICABLE FOR DIALYSIS PATIENTS. Specimen slightly [id number] 08:35:00* Test Item Value Reference Range Comments PHOSPHORUS (BEAKER) (test hpvf=568) 2.9 mg/dL 2.3-4.7 [id number] 08:35:00* Test Item Value Reference Range Comments MAGNESIUM (BEAKER) (test vkil=520) 2.0 mg/dL 1.6-2.6 CBC W/PLT COUNT & AUTO [id number] 06:46:00* Test Item Value Reference Range Comments WHITE BLOOD CELL COUNT (BEAKER) (test rxyv=419) 6.0 K/ L 3.5-10.5 RED BLOOD CELL COUNT (BEAKER) (test hybp=269) 2.67 M/ L 4.63-6.08 HEMOGLOBIN (BEAKER) (test pzxf=120) 8.7 GM/DL 13.7-17.5 HEMATOCRIT (BEAKER) (test ltvw=424) 27.3 % 40.1-51.0 MEAN CORPUSCULAR VOLUME (BEAKER) (test ejwy=112) 102.2 fL 79.0-92.2 MEAN CORPUSCULAR HEMOGLOBIN (BEAKER) (test tdlk=183) 32.6 pg 25.7-32.2 MEAN CORPUSCULAR HEMOGLOBIN CONC (BEAKER) (test shgm=881) 31.9 GM/DL 32.3- 36.5 RED CELL DISTRIBUTION WIDTH (BEAKER) (test ohfo=056) 19.2 % 11.6-14.4 PLATELET COUNT (BEAKER) (test kbqu=165) 140 K/CU MM 150-450 MEAN PLATELET VOLUME (BEAKER) (test kdfj=263) 9.9 fL 9.4-12.4 NUCLEATED RED BLOOD CELLS (BEAKER) (test etna=650) 0 /100 WBC 0-0 NEUTROPHILS RELATIVE PERCENT (BEAKER) (test qlxu=265) 64 % LYMPHOCYTES RELATIVE PERCENT (BEAKER) (test xlap=708) 20 % MONOCYTES RELATIVE PERCENT (BEAKER) (test mcrs=934) 12 % EOSINOPHILS RELATIVE PERCENT (BEAKER) (test scjq=873) 3 % BASOPHILS RELATIVE PERCENT (BEAKER) (test ztjg=852) 0 % NEUTROPHILS ABSOLUTE COUNT (BEAKER) (test bkcd=760) 3.88 K/ L 1.78-5.38 LYMPHOCYTES ABSOLUTE COUNT (BEAKER) (test ajfv=242) 1.18 K/ L 1.32-3.57 MONOCYTES ABSOLUTE COUNT (BEAKER) (test tofp=798) 0.71 K/ L 0.30-0.82 EOSINOPHILS ABSOLUTE COUNT (BEAKER) (test ioko=237) 0.16 K/ L 0.04-0.54 BASOPHILS ABSOLUTE COUNT (BEAKER) (test ldil=232) 0.02 K/ L 0.01-0.08 IMMATURE GRANULOCYTES-RELATIVE PERCENT (BEAKER) (test hlds=0458) 1 % 0-1 POCT-GLUCOSE [id number] 22:27:00* Test Item Value Reference Range Comments POC-GLUCOSE METER (BEAKER) (test jshp=8703) 100 mg/dL 70-110 TESTED AT [facility] [address] [facility] [address] POCT-GLUCOSE [id number] 19:03:00* Test Item Value Reference Range Comments POC-GLUCOSE METER (BEAKER) (test kdjk=9497) 130 mg/dL 70-110 TESTED AT [facility] [address] [facility] [address] CBC W/PLT COUNT & AUTO [id number] 07:19:00* Test Item Value Reference Range Comments WHITE BLOOD CELL COUNT (BEAKER) (test vxcf=400) 5.3 K/ L 3.5-10.5 RED BLOOD CELL COUNT (BEAKER) (test ocpj=635) 2.10 M/ L 4.63-6.08 HEMOGLOBIN (BEAKER) (test mqjm=390) 7.0 GM/DL 13.7-17.5 HEMATOCRIT (BEAKER) (test muiu=955) 22.2 % 40.1-51.0 MEAN CORPUSCULAR VOLUME (BEAKER) (test qvwf=826) 105.7 fL 79.0-92.2 MEAN CORPUSCULAR HEMOGLOBIN (BEAKER) (test hpgg=482) 33.3 pg 25.7-32.2 MEAN CORPUSCULAR HEMOGLOBIN CONC (BEAKER) (test hhuc=326) 31.5 GM/DL 32.3- 36.5 RED CELL DISTRIBUTION WIDTH (BEAKER) (test khhl=716) 17.5 % 11.6-14.4 PLATELET COUNT (BEAKER) (test eiyc=917) 120 K/CU MM 150-450 MEAN PLATELET VOLUME (BEAKER) (test idrt=156) 9.9 fL 9.4-12.4 NUCLEATED RED BLOOD CELLS (BEAKER) (test xsbn=024) 0 /100 WBC 0-0 NEUTROPHILS RELATIVE PERCENT (BEAKER) (test yxdj=708) 61 % LYMPHOCYTES RELATIVE PERCENT (BEAKER) (test dyqt=532) 23 % MONOCYTES RELATIVE PERCENT (BEAKER) (test dzlm=117) 13 % EOSINOPHILS RELATIVE PERCENT (BEAKER) (test ykia=880) 2 % BASOPHILS RELATIVE PERCENT (BEAKER) (test gykh=367) 0 % NEUTROPHILS ABSOLUTE COUNT (BEAKER) (test bpbg=669) 3.20 K/ L 1.78-5.38 LYMPHOCYTES ABSOLUTE COUNT (BEAKER) (test ggeg=449) 1.20 K/ L 1.32-3.57 MONOCYTES ABSOLUTE COUNT (BEAKER) (test usac=621) 0.69 K/ L 0.30-0.82 EOSINOPHILS ABSOLUTE COUNT (BEAKER) (test mevh=248) 0.12 K/ L 0.04-0.54 BASOPHILS ABSOLUTE COUNT (BEAKER) (test onyb=484) 0.01 K/ L 0.01-0.08 IMMATURE GRANULOCYTES-RELATIVE PERCENT (BEAKER) (test xuvy=8330) 1 % 0-1 CALCIUM, [id number] 07:04:00* Test Item Value Reference Range Comments CALCIUM IONIZED (BEAKER) (test pfvb=179) 1.06 mmol/L 1.12-1.27 PH, BLOOD (BEAKER) (test kcin=5360) 7.39 BASIC METABOLIC [id number] 06:51:00* Test Item Value Reference Range Comments SODIUM (BEAKER) (test wkgl=186) 137 meq/L 136-145 POTASSIUM (BEAKER) (test iemz=239) 4.0 meq/L 3.5-5.1 CHLORIDE (BEAKER) (test roox=889) 99 meq/L 98-107 CO2 (BEAKER) (test hpxs=781) 26 meq/L 22-29 BLOOD UREA NITROGEN (BEAKER) (test cbem=520) 35 mg/dL 7-21 CREATININE (BEAKER) (test itpg=537) 7.34 mg/dL 0.57-1.25 GLUCOSE RANDOM (BEAKER) (test ldfj=088) 82 mg/dL 70-105 CALCIUM (BEAKER) (test rnmo=275) 8.5 mg/dL 8.4-10.2 EGFR (BEAKER) (test hztz=7501) 7 mL/min/1.73 sq m ESTIMATED GFR IS NOT ACCURATE CREATININE CLEARANCE IN PREDICTING GLOMERULAR FILTRATION RATE. ESTIMATED GFR IS NOT APPLICABLE FOR DIALYSIS PATIENTS. [id number] 06:49:00* Test Item Value Reference Range Comments PHOSPHORUS (BEAKER) (test uqpx=976) 3.4 mg/dL 2.3-4.7 [id number] 06:49:00* Test Item Value Reference Range Comments MAGNESIUM (BEAKER) (test hpsc=683) 2.3 mg/dL 1.6-2.6 POCT-GLUCOSE [id number] 21:02:00* Test Item Value Reference Range Comments POC-GLUCOSE METER (BEAKER) (test vdrr=3660) 138 mg/dL 70-110 TESTED AT [place] [id number] [facility] [address] POCT-GLUCOSE [id number] 17:22:00* Test Item Value Reference Range Comments POC-GLUCOSE METER (BEAKER) (test jxiz=0870) 128 mg/dL 70-110 TESTED AT [address] [address] POCT-GLUCOSE [id number] 12:31:00* Test Item Value Reference Range Comments POC-GLUCOSE METER (BEAKER) (test ygwo=2328) 124 mg/dL 70-110 TESTED AT [address] [address] POCT-GLUCOSE [id number] 07:58:00* Test Item Value Reference Range Comments POC-GLUCOSE METER (BEAKER) (test lzpw=4068) 123 mg/dL 70-110 TESTED AT [facility] [address] [facility] [address] BASIC METABOLIC [id number] 05:59:00* Test Item Value Reference Range Comments SODIUM (BEAKER) (test oxxq=298) 137 meq/L 136-145 POTASSIUM (BEAKER) (test nxtd=402) 4.4 meq/L 3.5-5.1 CHLORIDE (BEAKER) (test zicx=983) 98 meq/L 98-107 CO2 (BEAKER) (test axsn=489) 26 meq/L 22-29 BLOOD UREA NITROGEN (BEAKER) (test jnwf=207) 25 mg/dL 7-21 CREATININE (BEAKER) (test hzdx=321) 5.24 mg/dL 0.57-1.25 GLUCOSE RANDOM (BEAKER) (test pgfh=223) 81 mg/dL 70-105 CALCIUM (BEAKER) (test gijm=745) 8.8 mg/dL 8.4-10.2 EGFR (BEAKER) (test kwgk=9108) 11 mL/min/1.73 sq m ESTIMATED GFR IS NOT ACCURATE CREATININE CLEARANCE IN PREDICTING GLOMERULAR FILTRATION RATE. ESTIMATED GFR IS NOT APPLICABLE FOR DIALYSIS PATIENTS. [id number] 05:57:00* Test Item Value Reference Range Comments PHOSPHORUS (BEAKER) (test ydjp=460) 3.3 mg/dL 2.3-4.7 [id number] 05:57:00* Test Item Value Reference Range Comments MAGNESIUM (BEAKER) (test wczc=754) 2.2 mg/dL 1.6-2.6 CALCIUM, [id number] 05:45:00* Test Item Value Reference Range Comments CALCIUM IONIZED (BEAKER) (test tjln=116) 1.05 mmol/L 1.12-1.27 PH, BLOOD (BEAKER) (test lcsq=6073) 7.41 CBC W/PLT COUNT & AUTO [id number] 05:24:00* Test Item Value Reference Range Comments WHITE BLOOD CELL COUNT (BEAKER) (test psti=535) 4.9 K/ L 3.5-10.5 RED BLOOD CELL COUNT (BEAKER) (test kmes=489) 1.92 M/ L 4.63-6.08 HEMOGLOBIN (BEAKER) (test gblw=295) 6.5 GM/DL 13.7-17.5 HEMATOCRIT (BEAKER) (test ufrd=471) 20.7 % 40.1-51.0 MEAN CORPUSCULAR VOLUME (BEAKER) (test fosa=020) 107.8 fL 79.0-92.2 MEAN CORPUSCULAR HEMOGLOBIN (BEAKER) (test owrg=642) 33.9 pg 25.7-32.2 MEAN CORPUSCULAR HEMOGLOBIN CONC (BEAKER) (test gnpj=897) 31.4 GM/DL 32.3- 36.5 RED CELL DISTRIBUTION WIDTH (BEAKER) (test rnbp=549) 15.4 % 11.6-14.4 PLATELET COUNT (BEAKER) (test ilvq=469) 123 K/CU MM 150-450 MEAN PLATELET VOLUME (BEAKER) (test qpzr=957) 9.6 fL 9.4-12.4 NUCLEATED RED BLOOD CELLS (BEAKER) (test cdci=770) 0 /100 WBC 0-0 NEUTROPHILS RELATIVE PERCENT (BEAKER) (test qckd=253) 67 % LYMPHOCYTES RELATIVE PERCENT (BEAKER) (test jlds=692) 19 % MONOCYTES RELATIVE PERCENT (BEAKER) (test pbuk=667) 12 % EOSINOPHILS RELATIVE PERCENT (BEAKER) (test cswh=832) 1 % BASOPHILS RELATIVE PERCENT (BEAKER) (test wrwz=950) 0 % NEUTROPHILS ABSOLUTE COUNT (BEAKER) (test kazq=491) 3.30 K/ L 1.78-5.38 LYMPHOCYTES ABSOLUTE COUNT (BEAKER) (test vgbz=519) 0.94 K/ L 1.32-3.57 MONOCYTES ABSOLUTE COUNT (BEAKER) (test oxdu=688) 0.57 K/ L 0.30-0.82 EOSINOPHILS ABSOLUTE COUNT (BEAKER) (test joov=876) 0.07 K/ L 0.04-0.54 BASOPHILS ABSOLUTE COUNT (BEAKER) (test mtfa=255) 0.01 K/ L 0.01-0.08 IMMATURE GRANULOCYTES-RELATIVE PERCENT (BEAKER) (test fcfo=8379) 1 % 0-1 POCT-GLUCOSE [id number] 21:13:00* Test Item Value Reference Range Comments POC-GLUCOSE METER (BEAKER) (test wuur=2022) 126 mg/dL 70-110 TESTED AT [facility] [address] [facility] [address] POCT-GLUCOSE [id number] 18:35:00* Test Item Value Reference Range Comments POC-GLUCOSE METER (BEAKER) (test puzk=0299) 104 mg/dL 70-110 TESTED AT [place] [address] [facility] [address] POCT-GLUCOSE [id number] 12:17:00* Test Item Value Reference Range Comments POC-GLUCOSE METER (BEAKER) (test ojac=0270) 104 mg/dL 70-110 TESTED AT [address] [address] POCT-GLUCOSE [id number] 07:51:00* Test Item Value Reference Range Comments POC-GLUCOSE METER (BEAKER) (test wrft=4856) 87 mg/dL 70-110 TESTED AT [place] [address] [facility] [address] BASIC METABOLIC [id number] 06:46:00* Test Item Value Reference Range Comments SODIUM (BEAKER) (test occb=060) 132 meq/L 136-145 POTASSIUM (BEAKER) (test eywj=347) 4.9 meq/L 3.5-5.1 CHLORIDE (BEAKER) (test knwf=168) 95 meq/L 98-107 CO2 (BEAKER) (test myub=949) 24 meq/L 22-29 BLOOD UREA NITROGEN (BEAKER) (test gguk=600) 48 mg/dL 7-21 CREATININE (BEAKER) (test pcfz=111) 7.28 mg/dL 0.57-1.25 GLUCOSE RANDOM (BEAKER) (test pvgu=009) 74 mg/dL 70-105 CALCIUM (BEAKER) (test ioqu=502) 8.8 mg/dL 8.4-10.2 EGFR (BEAKER) (test olzj=5488) 7 mL/min/1.73 sq m ESTIMATED GFR IS NOT ACCURATE CREATININE CLEARANCE IN PREDICTING GLOMERULAR FILTRATION RATE. ESTIMATED GFR IS NOT APPLICABLE FOR DIALYSIS PATIENTS. [id number] 06:42:00* Test Item Value Reference Range Comments PHOSPHORUS (BEAKER) (test tyxi=790) 5.3 mg/dL 2.3-4.7 [id number] 06:42:00* Test Item Value Reference Range Comments MAGNESIUM (BEAKER) (test boji=131) 2.3 mg/dL 1.6-2.6 CBC W/PLT COUNT & AUTO [id number] 06:23:00* Test Item Value Reference Range Comments WHITE BLOOD CELL COUNT (BEAKER) (test wmwv=856) 5.3 K/ L 3.5-10.5 RED BLOOD CELL COUNT (BEAKER) (test yxnz=937) 2.06 M/ L 4.63-6.08 HEMOGLOBIN (BEAKER) (test guoi=118) 7.0 GM/DL 13.7-17.5 HEMATOCRIT (BEAKER) (test jyyg=994) 22.4 % 40.1-51.0 MEAN CORPUSCULAR VOLUME (BEAKER) (test xssf=121) 108.7 fL 79.0-92.2 MEAN CORPUSCULAR HEMOGLOBIN (BEAKER) (test mvgt=060) 34.0 pg 25.7-32.2 MEAN CORPUSCULAR HEMOGLOBIN CONC (BEAKER) (test cuvz=164) 31.3 GM/DL 32.3- 36.5 RED CELL DISTRIBUTION WIDTH (BEAKER) (test bzop=809) 15.3 % 11.6-14.4 PLATELET COUNT (BEAKER) (test kpkc=445) 113 K/CU MM 150-450 MEAN PLATELET VOLUME (BEAKER) (test uprn=769) 9.9 fL 9.4-12.4 NUCLEATED RED BLOOD CELLS (BEAKER) (test bucd=378) 0 /100 WBC 0-0 NEUTROPHILS RELATIVE PERCENT (BEAKER) (test tptm=191) 59 % LYMPHOCYTES RELATIVE PERCENT (BEAKER) (test wuyj=400) 27 % MONOCYTES RELATIVE PERCENT (BEAKER) (test hzof=316) 11 % EOSINOPHILS RELATIVE PERCENT (BEAKER) (test nljq=859) 3 % BASOPHILS RELATIVE PERCENT (BEAKER) (test sxnv=451) 0 % NEUTROPHILS ABSOLUTE COUNT (BEAKER) (test okou=867) 3.12 K/ L 1.78-5.38 LYMPHOCYTES ABSOLUTE COUNT (BEAKER) (test iadj=103) 1.40 K/ L 1.32-3.57 MONOCYTES ABSOLUTE COUNT (BEAKER) (test uwlt=632) 0.57 K/ L 0.30-0.82 EOSINOPHILS ABSOLUTE COUNT (BEAKER) (test uugj=976) 0.16 K/ L 0.04-0.54 BASOPHILS ABSOLUTE COUNT (BEAKER) (test awck=389) 0.01 K/ L 0.01-0.08 IMMATURE GRANULOCYTES-RELATIVE PERCENT (BEAKER) (test uups=9944) 1 % 0-1 POCT-GLUCOSE [id number] 21:40:00* Test Item Value Reference Range Comments POC-GLUCOSE METER (BEAKER) (test mbcc=3639) 91 mg/dL 70-110 TESTED AT [address] [address] POCT-GLUCOSE [id number] 17:09:00* Test Item Value Reference Range Comments POC-GLUCOSE METER (BEAKER) (test phuq=0942) 92 mg/dL 70-110 TESTED AT [address] [address] POCT-GLUCOSE [id number] 12:35:00* Test Item Value Reference Range Comments POC-GLUCOSE METER (BEAKER) (test bqrr=5094) 110 mg/dL 70-110 TESTED AT [address] [address] CBC W/PLT COUNT & AUTO [id number] 08:35:00* Test Item Value Reference Range Comments WHITE BLOOD CELL COUNT (BEAKER) (test ppyw=920) 5.0 K/ L 3.5-10.5 RED BLOOD CELL COUNT (BEAKER) (test vefd=050) 2.01 M/ L 4.63-6.08 HEMOGLOBIN (BEAKER) (test oics=409) 6.8 GM/DL 13.7-17.5 HEMATOCRIT (BEAKER) (test lmad=605) 21.9 % 40.1-51.0 MEAN CORPUSCULAR VOLUME (BEAKER) (test oxri=158) 109.0 fL 79.0-92.2 MEAN CORPUSCULAR HEMOGLOBIN (BEAKER) (test jpaa=114) 33.8 pg 25.7-32.2 MEAN CORPUSCULAR HEMOGLOBIN CONC (BEAKER) (test vteb=635) 31.1 GM/DL 32.3- 36.5 RED CELL DISTRIBUTION WIDTH (BEAKER) (test tavi=541) 15.5 % 11.6-14.4 PLATELET COUNT (BEAKER) (test wrfp=723) 101 K/CU MM 150-450 MEAN PLATELET VOLUME (BEAKER) (test uywg=384) 9.9 fL 9.4-12.4 NUCLEATED RED BLOOD CELLS (BEAKER) (test titf=199) 0 /100 WBC 0-0 NEUTROPHILS RELATIVE PERCENT (BEAKER) (test lttt=620) 64 % LYMPHOCYTES RELATIVE PERCENT (BEAKER) (test siiu=899) 21 % MONOCYTES RELATIVE PERCENT (BEAKER) (test vmfu=903) 12 % EOSINOPHILS RELATIVE PERCENT (BEAKER) (test aywt=225) 2 % BASOPHILS RELATIVE PERCENT (BEAKER) (test yyrp=638) 0 % NEUTROPHILS ABSOLUTE COUNT (BEAKER) (test xrta=604) 3.22 K/ L 1.78-5.38 LYMPHOCYTES ABSOLUTE COUNT (BEAKER) (test hwmd=791) 1.06 K/ L 1.32-3.57 MONOCYTES ABSOLUTE COUNT (BEAKER) (test hhlc=738) 0.60 K/ L 0.30-0.82 EOSINOPHILS ABSOLUTE COUNT (BEAKER) (test oamb=774) 0.12 K/ L 0.04-0.54 BASOPHILS ABSOLUTE COUNT (BEAKER) (test noer=274) 0.01 K/ L 0.01-0.08 IMMATURE GRANULOCYTES-RELATIVE PERCENT (BEAKER) (test pasq=2456) 1 % 0-1 BASIC METABOLIC [id number] 08:05:00* Test Item Value Reference Range Comments SODIUM (BEAKER) (test kvsu=384) 134 meq/L 136-145 POTASSIUM (BEAKER) (test qbrr=867) 4.6 meq/L 3.5-5.1 CHLORIDE (BEAKER) (test leuz=317) 96 meq/L 98-107 CO2 (BEAKER) (test ahdf=974) 27 meq/L 22-29 BLOOD UREA NITROGEN (BEAKER) (test gvdz=712) 36 mg/dL 7-21 CREATININE (BEAKER) (test yxff=078) 7.53 mg/dL 0.57-1.25 GLUCOSE RANDOM (BEAKER) (test qddf=686) 75 mg/dL 70-105 CALCIUM (BEAKER) (test whkh=800) 8.6 mg/dL 8.4-10.2 EGFR (BEAKER) (test neyy=1712) 7 mL/min/1.73 sq m ESTIMATED GFR IS NOT ACCURATE CREATININE CLEARANCE IN PREDICTING GLOMERULAR FILTRATION RATE. ESTIMATED GFR IS NOT APPLICABLE FOR DIALYSIS PATIENTS. [id number] 07:57:00* Test Item Value Reference Range Comments PHOSPHORUS (BEAKER) (test fwml=010) 4.8 mg/dL 2.3-4.7 [id number] 07:57:00* Test Item Value Reference Range Comments MAGNESIUM (BEAKER) (test dpdn=518) 2.4 mg/dL 1.6-2.6 POCT-GLUCOSE [id number] 07:09:00* Test Item Value Reference Range Comments POC-GLUCOSE METER (BEAKER) (test ewvn=2769) 118 mg/dL 70-110 TESTED AT [address] [address] POCT-GLUCOSE [id number] 22:04:00* Test Item Value Reference Range Comments POC-GLUCOSE METER (BEAKER) (test fvue=5485) 152 mg/dL 70-110 TESTED AT [address] [address] POCT-GLUCOSE [id number] 17:17:00* Test Item Value Reference Range Comments POC-GLUCOSE METER (BEAKER) (test myay=0200) 131 mg/dL 70-110 TESTED AT [address] [address] POCT-GLUCOSE [id number] 12:25:00* Test Item Value Reference Range Comments POC-GLUCOSE METER (BEAKER) (test qwxj=8861) 147 mg/dL 70-110 TESTED AT [address] [address] POCT-GLUCOSE [id number] 08:36:00* Test Item Value Reference Range Comments POC-GLUCOSE METER (BEAKER) (test hupj=6549) 150 mg/dL 70-110 TESTED AT [address] [address] BASIC METABOLIC [id number] 08:03:00* Test Item Value Reference Range Comments SODIUM (BEAKER) (test wtuq=250) 140 meq/L 136-145 POTASSIUM (BEAKER) (test vtmx=526) 5.0 meq/L 3.5-5.1 CHLORIDE (BEAKER) (test wmos=187) 100 meq/L 98-107 CO2 (BEAKER) (test safy=873) 24 meq/L 22-29 BLOOD UREA NITROGEN (BEAKER) (test zsqg=015) 24 mg/dL 7-21 CREATININE (BEAKER) (test qfrp=580) 5.91 mg/dL 0.57-1.25 GLUCOSE RANDOM (BEAKER) (test nkcr=115) 110 mg/dL 70-105 CALCIUM (BEAKER) (test zrip=220) 9.2 mg/dL 8.4-10.2 EGFR (BEAKER) (test fmvd=7626) 9 mL/min/1.73 sq m ESTIMATED GFR IS NOT ACCURATE CREATININE CLEARANCE IN PREDICTING GLOMERULAR FILTRATION RATE. ESTIMATED GFR IS NOT APPLICABLE FOR DIALYSIS PATIENTS. [id number] 08:01:00* Test Item Value Reference Range Comments PHOSPHORUS (BEAKER) (test iqds=799) 4.3 mg/dL 2.3-4.7 [id number] 08:01:00* Test Item Value Reference Range Comments MAGNESIUM (BEAKER) (test rzog=621) 2.2 mg/dL 1.6-2.6 [id number] 07:23:00* Test Item Value Reference Range Comments PARTIAL THROMBOPLASTIN TIME (BEAKER) (test ruhi=506) 48.3 seconds 22.5-36.0 CBC W/PLT COUNT & AUTO [id number] 07:21:00* Test Item Value Reference Range Comments WHITE BLOOD CELL COUNT (BEAKER) (test wqey=925) 5.6 K/ L 3.5-10.5 RED BLOOD CELL COUNT (BEAKER) (test vgzw=363) 2.73 M/ L 4.63-6.08 HEMOGLOBIN (BEAKER) (test lhim=109) 9.2 GM/DL 13.7-17.5 HEMATOCRIT (BEAKER) (test gbul=636) 30.3 % 40.1-51.0 MEAN CORPUSCULAR VOLUME (BEAKER) (test vant=512) 111.0 fL 79.0-92.2 MEAN CORPUSCULAR HEMOGLOBIN (BEAKER) (test bkgt=115) 33.7 pg 25.7-32.2 MEAN CORPUSCULAR HEMOGLOBIN CONC (BEAKER) (test yfpb=598) 30.4 GM/DL 32.3- 36.5 RED CELL DISTRIBUTION WIDTH (BEAKER) (test encp=327) 15.1 % 11.6-14.4 PLATELET COUNT (BEAKER) (test mgze=391) 113 K/CU MM 150-450 MEAN PLATELET VOLUME (BEAKER) (test ebck=396) 9.9 fL 9.4-12.4 NUCLEATED RED BLOOD CELLS (BEAKER) (test jxho=948) 0 /100 WBC 0-0 NEUTROPHILS RELATIVE PERCENT (BEAKER) (test fhoe=969) 71 % LYMPHOCYTES RELATIVE PERCENT (BEAKER) (test byho=532) 17 % MONOCYTES RELATIVE PERCENT (BEAKER) (test hpnz=550) 10 % EOSINOPHILS RELATIVE PERCENT (BEAKER) (test qrft=298) 2 % BASOPHILS RELATIVE PERCENT (BEAKER) (test nknt=193) 0 % NEUTROPHILS ABSOLUTE COUNT (BEAKER) (test bnse=931) 3.94 K/ L 1.78-5.38 LYMPHOCYTES ABSOLUTE COUNT (BEAKER) (test cefx=570) 0.97 K/ L 1.32-3.57 MONOCYTES ABSOLUTE COUNT (BEAKER) (test tpnb=029) 0.53 K/ L 0.30-0.82 EOSINOPHILS ABSOLUTE COUNT (BEAKER) (test bzyk=696) 0.09 K/ L 0.04-0.54 BASOPHILS ABSOLUTE COUNT (BEAKER) (test ujxl=487) 0.02 K/ L 0.01-0.08 IMMATURE GRANULOCYTES-RELATIVE PERCENT (BEAKER) (test meqj=6714) 0 % 0-1 POCT-GLUCOSE [id number] 23:51:00* Test Item Value Reference Range Comments POC-GLUCOSE METER (BEAKER) (test nrcm=4197) 143 mg/dL 70-110 TESTED AT [facility] [address] [facility] [address] POCT-GLUCOSE [id number] 19:10:00* Test Item Value Reference Range Comments POC-GLUCOSE METER (BEAKER) (test gmrv=5145) 140 mg/dL 70-110 TESTED AT [place] [id number] [facility] [address] BASIC METABOLIC [id number] 13:37:00* Test Item Value Reference Range Comments SODIUM (BEAKER) (test obvd=971) 143 meq/L 136-145 POTASSIUM (BEAKER) (test flyi=566) 4.4 meq/L 3.5-5.1 CHLORIDE (BEAKER) (test sfxq=398) 104 meq/L 98-107 CO2 (BEAKER) (test utbk=493) 32 meq/L 22-29 BLOOD UREA NITROGEN (BEAKER) (test rscp=038) 13 mg/dL 7-21 CREATININE (BEAKER) (test rudk=373) 3.30 mg/dL 0.57-1.25 GLUCOSE RANDOM (BEAKER) (test jmex=762) 97 mg/dL 70-105 CALCIUM (BEAKER) (test apxo=074) 8.5 mg/dL 8.4-10.2 EGFR (BEAKER) (test jmqp=9520) 18 mL/min/1.73 sq m ESTIMATED GFR IS NOT ACCURATE CREATININE CLEARANCE IN PREDICTING GLOMERULAR FILTRATION RATE. ESTIMATED GFR IS NOT APPLICABLE FOR DIALYSIS PATIENTS. [id number] 13:28:00* Test Item Value Reference Range Comments POTASSIUM (BEAKER) (test vfnl=733) 4.4 meq/L 3.5-5.1 POCT-GLUCOSE [id number] 12:14:00* Test Item Value Reference Range Comments POC-GLUCOSE METER (BEAKER) (test ajti=8424) 94 mg/dL 70-110 TESTED AT [address] [address] BASIC METABOLIC [id number] 08:27:00* Test Item Value Reference Range Comments SODIUM (BEAKER) (test tdub=720) 136 meq/L 136-145 POTASSIUM (BEAKER) (test krks=447) 6.0 meq/L 3.5-5.1 CHLORIDE (BEAKER) (test ziym=048) 97 meq/L 98-107 CO2 (BEAKER) (test ydzr=359) 24 meq/L 22-29 BLOOD UREA NITROGEN (BEAKER) (test dkzj=671) 49 mg/dL 7-21 CREATININE (BEAKER) (test ntbn=078) 9.00 mg/dL 0.57-1.25 GLUCOSE RANDOM (BEAKER) (test lkfm=295) 93 mg/dL 70-105 CALCIUM (BEAKER) (test jjiq=597) 8.3 mg/dL 8.4-10.2 EGFR (BEAKER) (test znhw=8654) 6 mL/min/1.73 sq m ESTIMATED GFR IS NOT ACCURATE CREATININE CLEARANCE IN PREDICTING GLOMERULAR FILTRATION RATE. ESTIMATED GFR IS NOT APPLICABLE FOR DIALYSIS PATIENTS. [id number] 08:00:00* Test Item Value Reference Range Comments PHOSPHORUS (BEAKER) (test bgfz=099) 6.4 mg/dL 2.3-4.7 [id number] 08:00:00* Test Item Value Reference Range Comments MAGNESIUM (BEAKER) (test cwqz=519) 2.0 mg/dL 1.6-2.6 [id number] 07:35:00* Test Item Value Reference Range Comments PARTIAL THROMBOPLASTIN TIME (BEAKER) (test oltq=203) 43.4 seconds 22.5-36.0 CBC (HEMOGRAM ONLY)2017-09-08 07:28:00* Test Item Value Reference Range Comments WHITE BLOOD CELL COUNT (BEAKER) (test wkmv=043) 6.5 K/ L 3.5-10.5 RED BLOOD CELL COUNT (BEAKER) (test mdyy=880) 2.65 M/ L 4.63-6.08 HEMOGLOBIN (BEAKER) (test aofe=520) 9.0 GM/DL 13.7-17.5 HEMATOCRIT (BEAKER) (test ixll=609) 28.6 % 40.1-51.0 MEAN CORPUSCULAR VOLUME (BEAKER) (test rdjo=942) 107.9 fL 79.0-92.2 MEAN CORPUSCULAR HEMOGLOBIN (BEAKER) (test nmjb=533) 34.0 pg 25.7-32.2 MEAN CORPUSCULAR HEMOGLOBIN CONC (BEAKER) (test ubqb=662) 31.5 GM/DL 32.3- 36.5 RED CELL DISTRIBUTION WIDTH (BEAKER) (test fmau=661) 14.8 % 11.6-14.4 PLATELET COUNT (BEAKER) (test wkht=174) 104 K/CU MM 150-450 MEAN PLATELET VOLUME (BEAKER) (test hvvm=604) 10.3 fL 9.4-12.4 NUCLEATED RED BLOOD CELLS (BEAKER) (test ldva=366) 0 /100 WBC 0-0 POCT-GLUCOSE [id number] 07:17:00* Test Item Value Reference Range Comments POC-GLUCOSE METER (BEAKER) (test bthu=8575) 105 mg/dL 70-110 TESTED AT [facility] [address] [facility] [address] POCT-GLUCOSE [id number] 00:43:00* Test Item Value Reference Range Comments POC-GLUCOSE METER (BEAKER) (test suhe=8097) 93 mg/dL 70-110 TESTED AT [facility] [address] [facility] [address] BASIC METABOLIC [id number] 21:40:00* Test Item Value Reference Range Comments SODIUM (BEAKER) (test qiee=207) 139 meq/L 136-145 POTASSIUM (BEAKER) (test sima=645) 4.7 meq/L 3.5-5.1 CHLORIDE (BEAKER) (test zwur=336) 98 meq/L 98-107 CO2 (BEAKER) (test uboh=512) 24 meq/L 22-29 BLOOD UREA NITROGEN (BEAKER) (test nzzo=399) 42 mg/dL 7-21 CREATININE (BEAKER) (test jdrx=477) 8.18 mg/dL 0.57-1.25 GLUCOSE RANDOM (BEAKER) (test xgoq=830) 85 mg/dL 70-105 CALCIUM (BEAKER) (test wbdc=544) 8.5 mg/dL 8.4-10.2 EGFR (BEAKER) (test evth=0786) 6 mL/min/1.73 sq m ESTIMATED GFR IS NOT ACCURATE CREATININE CLEARANCE IN PREDICTING GLOMERULAR FILTRATION RATE. ESTIMATED GFR IS NOT APPLICABLE FOR DIALYSIS PATIENTS. [id number] 21:39:00* Test Item Value Reference Range Comments PHOSPHORUS (BEAKER) (test rbvn=615) 5.8 mg/dL 2.3-4.7 [id number] 21:39:00* Test Item Value Reference Range Comments MAGNESIUM (BEAKER) (test uzhs=715) 1.9 mg/dL 1.6-2.6 [id number] 21:28:00* Test Item Value Reference Range Comments PROTIME (BEAKER) (test iokk=230) 14.6 seconds 11.7-14.7 INR (BEAKER) (test dglf=346) 1.1 <=5.9 PARTIAL THROMBOPLASTIN TIME (BEAKER) (test srwu=793) 40.4 seconds 22.5-36.0 RECOMMENDED COUMADIN/WARFARIN INR THERAPY RANGESSTANDARD DOSE: 2.0 - 3.0 Includes: PROPHYLAXIS for venous thrombosis, systemic embolization; TREATMENT for venous thrombosis and/or pulmonary embolus.HIGH RISK: Target INR is 2.5-3.5 for patients with mechanical heart valves.PROTHROMBIN TIME/[id number] 21:27: 00* Test Item Value Reference Range Comments PROTIME (BEAKER) (test vrer=736) 14.6 seconds 11.7-14.7 INR (BEAKER) (test bnzu=577) 1.1 <=5.9 RECOMMENDED COUMADIN/WARFARIN INR THERAPY RANGESSTANDARD DOSE: 2.0 - 3.0 Includes: PROPHYLAXIS for venous thrombosis, systemic embolization; TREATMENT for venous thrombosis and/or pulmonary embolus.HIGH RISK: Target INR is 2.5-3.5 for patients with mechanical heart valves.CBC W/PLT COUNT & AUTO [id number] 21:14:00* Test Item Value Reference Range Comments WHITE BLOOD CELL COUNT (BEAKER) (test tbre=224) 8.3 K/ L 3.5-10.5 RED BLOOD CELL COUNT (BEAKER) (test mfql=736) 2.88 M/ L 4.63-6.08 HEMOGLOBIN (BEAKER) (test dbjd=879) 9.9 GM/DL 13.7-17.5 HEMATOCRIT (BEAKER) (test apat=654) 30.7 % 40.1-51.0 MEAN CORPUSCULAR VOLUME (BEAKER) (test sxqg=812) 106.6 fL 79.0-92.2 MEAN CORPUSCULAR HEMOGLOBIN (BEAKER) (test aymc=697) 34.4 pg 25.7-32.2 MEAN CORPUSCULAR HEMOGLOBIN CONC (BEAKER) (test cdci=011) 32.2 GM/DL 32.3- 36.5 RED CELL DISTRIBUTION WIDTH (BEAKER) (test hika=304) 14.6 % 11.6-14.4 PLATELET COUNT (BEAKER) (test ganx=926) 112 K/CU MM 150-450 MEAN PLATELET VOLUME (BEAKER) (test gwch=250) 9.4 fL 9.4-12.4 NUCLEATED RED BLOOD CELLS (BEAKER) (test anba=814) 0 /100 WBC 0-0 NEUTROPHILS RELATIVE PERCENT (BEAKER) (test ppbm=404) 78 % LYMPHOCYTES RELATIVE PERCENT (BEAKER) (test hfpm=007) 13 % MONOCYTES RELATIVE PERCENT (BEAKER) (test pkyo=813) 8 % EOSINOPHILS RELATIVE PERCENT (BEAKER) (test tknf=531) 1 % BASOPHILS RELATIVE PERCENT (BEAKER) (test tbiw=220) 0 % NEUTROPHILS ABSOLUTE COUNT (BEAKER) (test ermv=689) 6.46 K/ L 1.78-5.38 LYMPHOCYTES ABSOLUTE COUNT (BEAKER) (test mijf=384) 1.09 K/ L 1.32-3.57 MONOCYTES ABSOLUTE COUNT (BEAKER) (test vuqs=490) 0.62 K/ L 0.30-0.82 EOSINOPHILS ABSOLUTE COUNT (BEAKER) (test rlwc=850) 0.04 K/ L 0.04-0.54 BASOPHILS ABSOLUTE COUNT (BEAKER) (test anou=099) 0.02 K/ L 0.01-0.08 IMMATURE GRANULOCYTES-RELATIVE PERCENT (BEAKER) (test opnk=9874) 0 % 0-1 [id number] 18:29:00* Test Item Value Reference Range Comments ACTIVATED CLOTTING TIME (BEAKER) (test augw=458) 158 sec TESTED AT [place] [id number] 18:29:00* Test Item Value Reference Range Comments ACTIVATED CLOTTING TIME (BEAKER) (test ifdm=408) 268 sec TESTED AT [address] [address] POTASSIUM-STAT [id number] 17:20:00* Test Item Value Reference Range Comments POTASSIUM (BEAKER) (test ggpm=140) 4.7 meq/L 3.6-5.5 BLOOD GAS, [id number] 17:20:00* Test Item Value Reference Range Comments PH ARTERIAL (BEAKER) (test nper=138) 7.44 7.35-7.45 PCO2 ARTERIAL (BEAKER) (test nwgq=703) 40 mmHg 35-45 PO2 ARTERIAL (BEAKER) (test zlwk=927) 123 mmHg 80-90 O2 SATURATION ARTERIAL (BEAKER) (test vpgy=021) 98.7 % 96.0-97.0 HCO3 ARTERIAL (BEAKER) (test kwdf=320) 27 mmol/L 21-29 BASE EXCESS ARTERIAL (BEAKER) (test vxqq=027) 1.6 mmol/L -2.0-3.0 PATIENT TEMPERATURE (BEAKER) (test eubz=8233) 35.1 C FIO2 (BEAKER) (test idod=1464) 100.0 % SODIUM NA-STAT [id number] 17:20:00* Test Item Value Reference Range Comments SODIUM (BEAKER) (test zplr=182) 134 meq/L 135-148 GLUCOSE-STAT [id number] 17:20:00* Test Item Value Reference Range Comments GLUCOSE RANDOM (BEAKER) (test hjoq=173) 66 mg/dL 70-110 HGB/HCT (H&H) - STAT [id number] 17:20:00* Test Item Value Reference Range Comments HEMOGLOBIN (BEAKER) (test mxll=701) 10.4 g/dL 13.0-16.8 HEMATOCRIT (BEAKER) (test ajpe=566) 31.0 % 40.0-50.0 CALCIUM, [id number] 14:22:00* Test Item Value Reference Range Comments CALCIUM IONIZED (BEAKER) (test pkqz=217) 1.02 mmol/L 1.12-1.27 PH, BLOOD (BEAKER) (test vsvn=1510) 7.40 BLOOD GAS, [id number] 14:20:00* Test Item Value Reference Range Comments PH ARTERIAL (BEAKER) (test sltz=297) 7.42 7.35-7.45 PCO2 ARTERIAL (BEAKER) (test gxog=477) 43 mmHg 35-45 PO2 ARTERIAL (BEAKER) (test zvwq=185) 213 mmHg 80-90 O2 SATURATION ARTERIAL (BEAKER) (test kibu=917) 99.5 % 96.0-97.0 HCO3 ARTERIAL (BEAKER) (test nqeh=533) 28 mmol/L 21-29 BASE EXCESS ARTERIAL (BEAKER) (test mdzq=913) 2.2 mmol/L -2.0-3.0 PATIENT TEMPERATURE (BEAKER) (test indi=3206) 35.6 C FIO2 (BEAKER) (test ngbe=0953) 50.0 % HGB/HCT (H&H) - STAT [id number] 14:20:00* Test Item Value Reference Range Comments HEMOGLOBIN (BEAKER) (test ryrv=008) 10.8 g/dL 13.0-16.8 HEMATOCRIT (BEAKER) (test rfna=081) 32.0 % 40.0-50.0 GLUCOSE-STAT [id number] 14:19:00* Test Item Value Reference Range Comments GLUCOSE RANDOM (BEAKER) (test iitv=066) 72 mg/dL 70-110 SODIUM NA-STAT [id number] 14:19:00* Test Item Value Reference Range Comments SODIUM (BEAKER) (test vjtt=133) 135 meq/L 135-148 POTASSIUM-STAT [id number] 14:19:00* Test Item Value Reference Range Comments POTASSIUM (BEAKER) (test nuob=484) 5.1 meq/L 3.6-5.5 POCT-GLUCOSE [id number] 08:07:00* Test Item Value Reference Range Comments POC-GLUCOSE METER (BEAKER) (test zfrh=9477) 88 mg/dL 70-110 TESTED AT [facility] [address] [facility] [address] POCT-GLUCOSE [id number] 08:06:00* Test Item Value Reference Range Comments POC-GLUCOSE METER (BEAKER) (test ewzy=8056) 65 mg/dL 70-110 Notified NORMA GRIFFITHS/ TESTED AT [address] [address] [id number] 06:53:00* Test Item Value Reference Range Comments PARTIAL THROMBOPLASTIN TIME (BEAKER) (test ykhr=634) 127.6 seconds 22.5-36.0 BASIC METABOLIC [id number] 06:15:00* Test Item Value Reference Range Comments SODIUM (BEAKER) (test dqvb=340) 138 meq/L 136-145 POTASSIUM (BEAKER) (test fqgq=646) 4.4 meq/L 3.5-5.1 CHLORIDE (BEAKER) (test qbpe=223) 97 meq/L 98-107 CO2 (BEAKER) (test daff=425) 27 meq/L 22-29 BLOOD UREA NITROGEN (BEAKER) (test olju=731) 32 mg/dL 7-21 CREATININE (BEAKER) (test qekg=537) 6.51 mg/dL 0.57-1.25 GLUCOSE RANDOM (BEAKER) (test ynxr=649) 62 mg/dL 70-105 CALCIUM (BEAKER) (test fvjv=507) 8.9 mg/dL 8.4-10.2 EGFR (BEAKER) (test octh=3511) 8 mL/min/1.73 sq m ESTIMATED GFR IS NOT ACCURATE CREATININE CLEARANCE IN PREDICTING GLOMERULAR FILTRATION RATE. ESTIMATED GFR IS NOT APPLICABLE FOR DIALYSIS PATIENTS. PROTHROMBIN TIME/[id number] 05:55:00* Test Item Value Reference Range Comments PROTIME (BEAKER) (test ymxg=005) 14.8 seconds 11.7-14.7 INR (BEAKER) (test moqx=998) 1.2 <=5.9 RECOMMENDED COUMADIN/WARFARIN INR THERAPY RANGESSTANDARD DOSE: 2.0 - 3.0 Includes: PROPHYLAXIS for venous thrombosis, systemic embolization; TREATMENT for venous thrombosis and/or pulmonary embolus.HIGH RISK: Target INR is 2.5-3.5 for patients with mechanical heart valves.CBC W/PLT COUNT & AUTO [id number] 05:31:00* Test Item Value Reference Range Comments WHITE BLOOD CELL COUNT (BEAKER) (test tigw=384) 4.4 K/ L 3.5-10.5 RED BLOOD CELL COUNT (BEAKER) (test rpfa=499) 3.10 M/ L 4.63-6.08 HEMOGLOBIN (BEAKER) (test gtbi=991) 10.3 GM/DL 13.7-17.5 HEMATOCRIT (BEAKER) (test kept=000) 32.5 % 40.1-51.0 MEAN CORPUSCULAR VOLUME (BEAKER) (test juqt=519) 104.8 fL 79.0-92.2 MEAN CORPUSCULAR HEMOGLOBIN (BEAKER) (test nzpy=473) 33.2 pg 25.7-32.2 MEAN CORPUSCULAR HEMOGLOBIN CONC (BEAKER) (test eocx=266) 31.7 GM/DL 32.3- 36.5 RED CELL DISTRIBUTION WIDTH (BEAKER) (test imnk=634) 14.4 % 11.6-14.4 PLATELET COUNT (BEAKER) (test mviw=193) 111 K/CU MM 150-450 MEAN PLATELET VOLUME (BEAKER) (test ddbr=168) 10.4 fL 9.4-12.4 NUCLEATED RED BLOOD CELLS (BEAKER) (test fxxo=087) 0 /100 WBC 0-0 NEUTROPHILS RELATIVE PERCENT (BEAKER) (test obyb=287) 55 % LYMPHOCYTES RELATIVE PERCENT (BEAKER) (test mabf=719) 31 % MONOCYTES RELATIVE PERCENT (BEAKER) (test hbva=631) 11 % EOSINOPHILS RELATIVE PERCENT (BEAKER) (test vuvm=883) 3 % BASOPHILS RELATIVE PERCENT (BEAKER) (test mklc=907) 1 % NEUTROPHILS ABSOLUTE COUNT (BEAKER) (test ixzl=607) 2.41 K/ L 1.78-5.38 LYMPHOCYTES ABSOLUTE COUNT (BEAKER) (test qkyw=213) 1.37 K/ L 1.32-3.57 MONOCYTES ABSOLUTE COUNT (BEAKER) (test xoxn=035) 0.47 K/ L 0.30-0.82 EOSINOPHILS ABSOLUTE COUNT (BEAKER) (test knnx=738) 0.11 K/ L 0.04-0.54 BASOPHILS ABSOLUTE COUNT (BEAKER) (test bjqa=088) 0.03 K/ L 0.01-0.08 IMMATURE GRANULOCYTES-RELATIVE PERCENT (BEAKER) (test trxc=9722) 1 % 0-1 [id number] 21:58:00* Test Item Value Reference Range Comments PARTIAL THROMBOPLASTIN TIME (BEAKER) (test oyep=351) 48.3 seconds 22.5-36.0 POCT-GLUCOSE [id number] 20:48:00* Test Item Value Reference Range Comments POC-GLUCOSE METER (BEAKER) (test tgtl=3224) 120 mg/dL 70-110 TESTED AT [place] [id number] POCT-GLUCOSE [id number] 17:13:00* Test Item Value Reference Range Comments POC-GLUCOSE METER (BEAKER) (test qnss=7776) 156 mg/dL 70-110 TESTED AT [address] [address] [id number] 15:00:00* Test Item Value Reference Range Comments PARTIAL THROMBOPLASTIN TIME (BEAKER) (test qsmr=281) 72.1 seconds 22.5-36.0 POCT-GLUCOSE [id number] 13:17:00* Test Item Value Reference Range Comments POC-GLUCOSE METER (BEAKER) (test agcq=2667) 89 mg/dL 70-110 TESTED AT [place] [address] [id number] 12:34:00* Test Item Value Reference Range Comments PARTIAL THROMBOPLASTIN TIME (BEAKER) (test hapl=222) 123.1 seconds 22.5-36.0 POCT-GLUCOSE [id number] 07:56:00* Test Item Value Reference Range Comments POC-GLUCOSE METER (BEAKER) (test bdok=2235) 118 mg/dL 70-110 TESTED AT [facility] [address] [facility] [address] POCT-GLUCOSE [id number] 07:45:00* Test Item Value Reference Range Comments POC-GLUCOSE METER (BEAKER) (test mmsz=4053) 68 mg/dL 70-110 Notified NORMA GRIFFITHS/ TESTED AT [facility] [address] [facility] [address] BASIC METABOLIC [id number] 06:36:00* Test Item Value Reference Range Comments SODIUM (BEAKER) (test ijpv=854) 136 meq/L 136-145 POTASSIUM (BEAKER) (test ypnv=512) 4.7 meq/L 3.5-5.1 CHLORIDE (BEAKER) (test xgey=416) 94 meq/L 98-107 CO2 (BEAKER) (test iwit=125) 29 meq/L 22-29 BLOOD UREA NITROGEN (BEAKER) (test unur=029) 50 mg/dL 7-21 CREATININE (BEAKER) (test vqrk=194) 8.63 mg/dL 0.57-1.25 GLUCOSE RANDOM (BEAKER) (test asvq=541) 68 mg/dL 70-105 CALCIUM (BEAKER) (test zcgo=669) 9.3 mg/dL 8.4-10.2 EGFR (BEAKER) (test gqlb=6605) 6 mL/min/1.73 sq m ESTIMATED GFR IS NOT ACCURATE CREATININE CLEARANCE IN PREDICTING GLOMERULAR FILTRATION RATE. ESTIMATED GFR IS NOT APPLICABLE FOR DIALYSIS PATIENTS. [id number] 06:12:00* Test Item Value Reference Range Comments PARTIAL THROMBOPLASTIN TIME (BEAKER) (test mtoq=014) 80.1 seconds 22.5-36.0 PROTHROMBIN TIME/[id number] 06:11:00* Test Item Value Reference Range Comments PROTIME (BEAKER) (test vxlx=083) 14.6 seconds 11.7-14.7 INR (BEAKER) (test misc=709) 1.1 <=5.9 RECOMMENDED COUMADIN/WARFARIN INR THERAPY RANGESSTANDARD DOSE: 2.0 - 3.0 Includes: PROPHYLAXIS for venous thrombosis, systemic embolization; TREATMENT for venous thrombosis and/or pulmonary embolus.HIGH RISK: Target INR is 2.5-3.5 for patients with mechanical heart valves.CBC (HEMOGRAM ONLY)2017-09-06 06:05:00 * Test Item Value Reference Range Comments WHITE BLOOD CELL COUNT (BEAKER) (test lmlk=950) 4.9 K/ L 3.5-10.5 RED BLOOD CELL COUNT (BEAKER) (test qdcc=183) 3.22 M/ L 4.63-6.08 HEMOGLOBIN (BEAKER) (test duat=205) 10.9 GM/DL 13.7-17.5 HEMATOCRIT (BEAKER) (test rxvm=793) 33.9 % 40.1-51.0 MEAN CORPUSCULAR VOLUME (BEAKER) (test jlht=102) 105.3 fL 79.0-92.2 MEAN CORPUSCULAR HEMOGLOBIN (BEAKER) (test ryha=920) 33.9 pg 25.7-32.2 MEAN CORPUSCULAR HEMOGLOBIN CONC (BEAKER) (test khop=693) 32.2 GM/DL 32.3- 36.5 RED CELL DISTRIBUTION WIDTH (BEAKER) (test jujj=282) 14.6 % 11.6-14.4 PLATELET COUNT (BEAKER) (test xxef=438) 98 K/CU MM 150-450 MEAN PLATELET VOLUME (BEAKER) (test bvat=166) 9.9 fL 9.4-12.4 NUCLEATED RED BLOOD CELLS (BEAKER) (test yphg=383) 0 /100 WBC 0-0 [id number] 22:31:00* Test Item Value Reference Range Comments PARTIAL THROMBOPLASTIN TIME (BEAKER) (test mear=728) 24.1 seconds 22.5-36.0 POCT-GLUCOSE [id number] 22:11:00* Test Item Value Reference Range Comments POC-GLUCOSE METER (BEAKER) (test rqjn=9774) 119 mg/dL 70-110 TESTED AT [address] [address] [id number] 18:51:00* Test Item Value Reference Range Comments PARTIAL THROMBOPLASTIN TIME (BEAKER) (test lwln=009) 141.2 seconds 22.5-36.0 POCT-GLUCOSE [id number] 17:19:00* Test Item Value Reference Range Comments POC-GLUCOSE METER (BEAKER) (test jtrv=3174) 127 mg/dL 70-110 TESTED AT [address] [address] [id number] 12:05:00* Test Item Value Reference Range Comments PARTIAL THROMBOPLASTIN TIME (BEAKER) (test btog=601) 100.8 seconds 22.5-36.0 POCT-GLUCOSE [id number] 11:58:00* Test Item Value Reference Range Comments POC-GLUCOSE METER (BEAKER) (test rnzm=4508) 89 mg/dL 70-110 TESTED AT [facility] [address] [facility] [address] POCT-GLUCOSE [id number] 07:39:00* Test Item Value Reference Range Comments POC-GLUCOSE METER (BEAKER) (test nrdg=7885) 74 mg/dL 70-110 TESTED AT [place] [id number] [facility] [address] [id number] 05:32:00* Test Item Value Reference Range Comments PARTIAL THROMBOPLASTIN TIME (BEAKER) (test nlvy=697) 48.2 seconds 22.5-36.0 BASIC METABOLIC [id number] 05:32:00* Test Item Value Reference Range Comments SODIUM (BEAKER) (test hmpr=711) 138 meq/L 136-145 POTASSIUM (BEAKER) (test bvux=535) 4.8 meq/L 3.5-5.1 CHLORIDE (BEAKER) (test gmqx=736) 96 meq/L 98-107 CO2 (BEAKER) (test hyca=421) 30 meq/L 22-29 BLOOD UREA NITROGEN (BEAKER) (test pybt=916) 30 mg/dL 7-21 CREATININE (BEAKER) (test duhc=945) 6.53 mg/dL 0.57-1.25 GLUCOSE RANDOM (BEAKER) (test bdzh=460) 73 mg/dL 70-105 CALCIUM (BEAKER) (test fxcs=980) 9.0 mg/dL 8.4-10.2 EGFR (BEAKER) (test vruo=4895) 8 mL/min/1.73 sq m ESTIMATED GFR IS NOT ACCURATE CREATININE CLEARANCE IN PREDICTING GLOMERULAR FILTRATION RATE. ESTIMATED GFR IS NOT APPLICABLE FOR DIALYSIS PATIENTS. [id number] 05:31:00* Test Item Value Reference Range Comments MAGNESIUM (BEAKER) (test jhei=799) 2.2 mg/dL 1.6-2.6 PROTHROMBIN TIME/[id number] 05:31:00* Test Item Value Reference Range Comments PROTIME (BEAKER) (test ggot=707) 14.3 seconds 11.7-14.7 INR (BEAKER) (test tjds=175) 1.1 <=5.9 RECOMMENDED COUMADIN/WARFARIN INR THERAPY RANGESSTANDARD DOSE: 2.0 - 3.0 Includes: PROPHYLAXIS for venous thrombosis, systemic embolization; TREATMENT for venous thrombosis and/or pulmonary embolus.HIGH RISK: Target INR is 2.5-3.5 for patients with mechanical heart valves.CBC (HEMOGRAM ONLY)2017-09-05 05:27:00 * Test Item Value Reference Range Comments WHITE BLOOD CELL COUNT (BEAKER) (test gwgn=738) 4.8 K/ L 3.5-10.5 RED BLOOD CELL COUNT (BEAKER) (test kdwl=540) 3.05 M/ L 4.63-6.08 HEMOGLOBIN (BEAKER) (test gnel=155) 10.5 GM/DL 13.7-17.5 HEMATOCRIT (BEAKER) (test yuos=762) 32.1 % 40.1-51.0 MEAN CORPUSCULAR VOLUME (BEAKER) (test gdyy=598) 105.2 fL 79.0-92.2 MEAN CORPUSCULAR HEMOGLOBIN (BEAKER) (test mvlt=501) 34.4 pg 25.7-32.2 MEAN CORPUSCULAR HEMOGLOBIN CONC (BEAKER) (test dfzj=748) 32.7 GM/DL 32.3- 36.5 RED CELL DISTRIBUTION WIDTH (BEAKER) (test wfei=261) 14.6 % 11.6-14.4 PLATELET COUNT (BEAKER) (test qgrz=559) 105 K/CU MM 150-450 MEAN PLATELET VOLUME (BEAKER) (test spfa=323) 10.3 fL 9.4-12.4 NUCLEATED RED BLOOD CELLS (BEAKER) (test ihdd=320) 0 /100 WBC 0-0 CBC W/PLT COUNT & AUTO [id number] 05:27:00* Test Item Value Reference Range Comments WHITE BLOOD CELL COUNT (BEAKER) (test asex=667) 4.8 K/ L 3.5-10.5 RED BLOOD CELL COUNT (BEAKER) (test ztxs=015) 3.05 M/ L 4.63-6.08 HEMOGLOBIN (BEAKER) (test ffrt=229) 10.5 GM/DL 13.7-17.5 HEMATOCRIT (BEAKER) (test snhu=608) 32.1 % 40.1-51.0 MEAN CORPUSCULAR VOLUME (BEAKER) (test oahx=464) 105.2 fL 79.0-92.2 MEAN CORPUSCULAR HEMOGLOBIN (BEAKER) (test oyns=575) 34.4 pg 25.7-32.2 MEAN CORPUSCULAR HEMOGLOBIN CONC (BEAKER) (test voud=765) 32.7 GM/DL 32.3- 36.5 RED CELL DISTRIBUTION WIDTH (BEAKER) (test hxvi=196) 14.6 % 11.6-14.4 PLATELET COUNT (BEAKER) (test yxxc=401) 105 K/CU MM 150-450 MEAN PLATELET VOLUME (BEAKER) (test szcl=211) 10.3 fL 9.4-12.4 NUCLEATED RED BLOOD CELLS (BEAKER) (test efbm=809) 0 /100 WBC 0-0 NEUTROPHILS RELATIVE PERCENT (BEAKER) (test tjof=786) 62 % LYMPHOCYTES RELATIVE PERCENT (BEAKER) (test tmah=681) 25 % MONOCYTES RELATIVE PERCENT (BEAKER) (test hjaa=304) 8 % EOSINOPHILS RELATIVE PERCENT (BEAKER) (test lkfc=256) 3 % BASOPHILS RELATIVE PERCENT (BEAKER) (test ycag=179) 1 % NEUTROPHILS ABSOLUTE COUNT (BEAKER) (test rkgf=204) 2.97 K/ L 1.78-5.38 LYMPHOCYTES ABSOLUTE COUNT (BEAKER) (test xwpx=802) 1.19 K/ L 1.32-3.57 MONOCYTES ABSOLUTE COUNT (BEAKER) (test dkge=144) 0.40 K/ L 0.30-0.82 EOSINOPHILS ABSOLUTE COUNT (BEAKER) (test nbch=035) 0.16 K/ L 0.04-0.54 BASOPHILS ABSOLUTE COUNT (BEAKER) (test muyt=819) 0.03 K/ L 0.01-0.08 IMMATURE GRANULOCYTES-RELATIVE PERCENT (BEAKER) (test iewh=9542) 0 % 0-1 POCT-GLUCOSE [id number] 22:00:00* Test Item Value Reference Range Comments POC-GLUCOSE METER (BEAKER) (test ctda=8892) 148 mg/dL 70-110 TESTED AT [facility] [address] [address] [id number] 21:28:00* Test Item Value Reference Range Comments PARTIAL THROMBOPLASTIN TIME (BEAKER) (test zpyk=179) 55.7 seconds 22.5-36.0 POCT-GLUCOSE [id number] 18:42:00* Test Item Value Reference Range Comments POC-GLUCOSE METER (BEAKER) (test wbca=6814) 143 mg/dL 70-110 TESTED AT [facility] [address] [address] HEPATITIS B SURFACE [id number] 15:25:00* Test Item Value Reference Range Comments HEPATITIS B SURFACE ANTIGEN (2) (BEAKER) (test uugg=3396) Nonreactive Nonreactive For chronic HD patients, draw HBsAg with each admission then every 30 days.PLATELET [id number] 14:27:00* Test Item Value Reference Range Comments PLATELET COUNT (BEAKER) (test mnqm=114) 94 K/CU MM 150-450 BASIC METABOLIC [id number] 12:01:00* Test Item Value Reference Range Comments SODIUM (BEAKER) (test rjoi=597) 136 meq/L 136-145 POTASSIUM (BEAKER) (test bfsk=364) 5.0 meq/L 3.5-5.1 CHLORIDE (BEAKER) (test adrp=834) 95 meq/L 98-107 CO2 (BEAKER) (test qfon=767) 25 meq/L 22-29 BLOOD UREA NITROGEN (BEAKER) (test ayqz=734) 57 mg/dL 7-21 CREATININE (BEAKER) (test icbm=938) 10.30 mg/dL 0.57-1.25 GLUCOSE RANDOM (BEAKER) (test utkv=189) 83 mg/dL 70-105 CALCIUM (BEAKER) (test jilv=633) 9.2 mg/dL 8.4-10.2 EGFR (BEAKER) (test cydt=3055) 5 mL/min/1.73 sq m ESTIMATED GFR IS NOT ACCURATE CREATININE CLEARANCE IN PREDICTING GLOMERULAR FILTRATION RATE. ESTIMATED GFR IS NOT APPLICABLE FOR DIALYSIS PATIENTS. [id number] 11:24:00* Test Item Value Reference Range Comments PARTIAL THROMBOPLASTIN TIME (BEAKER) (test jxdu=216) 37.7 seconds 22.5-36.0 6 hours after starting heparin infusion and as indicated per sliding scaleLIPID [id number] 11:24:00* Test Item Value Reference Range Comments TRIGLYCERIDES (BEAKER) (test latx=363) 196 mg/dL CHOLESTEROL (BEAKER) (test ssfr=129) 85 mg/dL HDL CHOLESTEROL (BEAKER) (test nvfi=472) 27 mg/dL LDL CHOLESTEROL CALCULATED (BEAKER) (test rpzr=872) 19 mg/dL Triglyceride Reference Range: Low Risk <150 Borderline 150-199 High Risk 200-499 Very High Risk >=500Cholesterol Reference Range: Low Risk <200 Borderline 200-239 High Risk >240HDL Cholesterol Reference Range: Low Risk >=60 High Risk <40LDL Cholesterol Reference Range: Optimal <100 Near Optimal 100-129 Borderline 130-159 High 160-189 Very High >=190 PROTHROMBIN [id number] 11:23:00* Test Item Value Reference Range Comments PROTIME (BEAKER) (test nwqa=083) 13.9 seconds 11.7-14.7 INR (BEAKER) (test tmzq=941) 1.1 <=5.9 RECOMMENDED COUMADIN/WARFARIN INR THERAPY RANGESSTANDARD DOSE: 2.0 - 3.0 Includes: PROPHYLAXIS for venous thrombosis, systemic embolization; TREATMENT for venous thrombosis and/or pulmonary embolus.HIGH RISK: Target INR is 2.5-3.5 for patients with mechanical heart valves.6 hours after starting heparin infusion and as indicated per sliding scaleCBC W/PLT COUNT & AUTO [id number] 11:07:00* Test Item Value Reference Range Comments WHITE BLOOD CELL COUNT (BEAKER) (test ssyb=260) 5.1 K/ L 3.5-10.5 RED BLOOD CELL COUNT (BEAKER) (test dmvl=789) 3.06 M/ L 4.63-6.08 HEMOGLOBIN (BEAKER) (test qjsr=789) 10.4 GM/DL 13.7-17.5 HEMATOCRIT (BEAKER) (test kktu=636) 33.1 % 40.1-51.0 MEAN CORPUSCULAR VOLUME (BEAKER) (test sksc=590) 108.2 fL 79.0-92.2 MEAN CORPUSCULAR HEMOGLOBIN (BEAKER) (test yafq=931) 34.0 pg 25.7-32.2 MEAN CORPUSCULAR HEMOGLOBIN CONC (BEAKER) (test kfqb=533) 31.4 GM/DL 32.3- 36.5 RED CELL DISTRIBUTION WIDTH (BEAKER) (test umkx=308) 14.5 % 11.6-14.4 PLATELET COUNT (BEAKER) (test slxv=968) 103 K/CU MM 150-450 MEAN PLATELET VOLUME (BEAKER) (test riup=941) 9.9 fL 9.4-12.4 NUCLEATED RED BLOOD CELLS (BEAKER) (test huqm=321) 0 /100 WBC 0-0 NEUTROPHILS RELATIVE PERCENT (BEAKER) (test swiz=837) 62 % LYMPHOCYTES RELATIVE PERCENT (BEAKER) (test elyn=292) 24 % MONOCYTES RELATIVE PERCENT (BEAKER) (test rvmt=923) 9 % EOSINOPHILS RELATIVE PERCENT (BEAKER) (test vwcd=189) 4 % BASOPHILS RELATIVE PERCENT (BEAKER) (test wpno=199) 1 % NEUTROPHILS ABSOLUTE COUNT (BEAKER) (test eavh=209) 3.14 K/ L 1.78-5.38 LYMPHOCYTES ABSOLUTE COUNT (BEAKER) (test kbvs=043) 1.20 K/ L 1.32-3.57 MONOCYTES ABSOLUTE COUNT (BEAKER) (test uojw=068) 0.47 K/ L 0.30-0.82 EOSINOPHILS ABSOLUTE COUNT (BEAKER) (test bybo=513) 0.20 K/ L 0.04-0.54 BASOPHILS ABSOLUTE COUNT (BEAKER) (test rhav=946) 0.03 K/ L 0.01-0.08 IMMATURE GRANULOCYTES-RELATIVE PERCENT (BEAKER) (test nvzp=2802) 0 % 0-1 POCT-GLUCOSE [id number] 12:06:00* Test Item Value Reference Range Comments POC-GLUCOSE METER (BEAKER) (test gzyj=7210) 84 mg/dL 70-110 TESTED AT [address] [address] [id number] 11:16:00* Test Item Value Reference Range Comments PARTIAL THROMBOPLASTIN TIME (BEAKER) (test xoqd=955) 137.5 seconds 22.5-36.0 POCT-GLUCOSE [id number] 07:51:00* Test Item Value Reference Range Comments POC-GLUCOSE METER (BEAKER) (test dcvj=0022) 76 mg/dL 70-110 TESTED AT [address] [address] BASIC METABOLIC [id number] 02:46:00* Test Item Value Reference Range Comments SODIUM (BEAKER) (test fjfv=516) 133 meq/L 136-145 POTASSIUM (BEAKER) (test zeyl=766) 5.7 meq/L 3.5-5.1 CHLORIDE (BEAKER) (test ptvd=488) 91 meq/L 98-107 CO2 (BEAKER) (test bnhr=811) 26 meq/L 22-29 BLOOD UREA NITROGEN (BEAKER) (test xidg=018) 67 mg/dL 7-21 CREATININE (BEAKER) (test pwju=571) 10.15 mg/dL 0.57-1.25 GLUCOSE RANDOM (BEAKER) (test zxtq=347) 90 mg/dL 70-105 CALCIUM (BEAKER) (test pedy=032) 9.0 mg/dL 8.4-10.2 EGFR (BEAKER) (test opvh=9632) 5 mL/min/1.73 sq m ESTIMATED GFR IS NOT ACCURATE CREATININE CLEARANCE IN PREDICTING GLOMERULAR FILTRATION RATE. ESTIMATED GFR IS NOT APPLICABLE FOR DIALYSIS PATIENTS. [id number] 02:40:00* Test Item Value Reference Range Comments PARTIAL THROMBOPLASTIN TIME (BEAKER) (test gqcs=588) 110.4 seconds 22.5-36.0 CBC W/PLT COUNT & AUTO [id number] 02:25:00* Test Item Value Reference Range Comments WHITE BLOOD CELL COUNT (BEAKER) (test xbxd=320) 5.2 K/ L 3.5-10.5 RED BLOOD CELL COUNT (BEAKER) (test vxvo=107) 3.29 M/ L 4.63-6.08 HEMOGLOBIN (BEAKER) (test ccwm=229) 11.2 GM/DL 13.7-17.5 HEMATOCRIT (BEAKER) (test sbjd=660) 33.8 % 40.1-51.0 MEAN CORPUSCULAR VOLUME (BEAKER) (test osof=916) 102.7 fL 79.0-92.2 MEAN CORPUSCULAR HEMOGLOBIN (BEAKER) (test nnvp=202) 34.0 pg 25.7-32.2 MEAN CORPUSCULAR HEMOGLOBIN CONC (BEAKER) (test ybqj=419) 33.1 GM/DL 32.3- 36.5 RED CELL DISTRIBUTION WIDTH (BEAKER) (test fkak=709) 14.7 % 11.6-14.4 PLATELET COUNT (BEAKER) (test wevj=369) 110 K/CU MM 150-450 MEAN PLATELET VOLUME (BEAKER) (test exbk=533) 9.5 fL 9.4-12.4 NUCLEATED RED BLOOD CELLS (BEAKER) (test xxvp=709) 0 /100 WBC 0-0 NEUTROPHILS RELATIVE PERCENT (BEAKER) (test vfkt=951) 55 % LYMPHOCYTES RELATIVE PERCENT (BEAKER) (test vmit=398) 33 % MONOCYTES RELATIVE PERCENT (BEAKER) (test neie=179) 8 % EOSINOPHILS RELATIVE PERCENT (BEAKER) (test xtnk=203) 3 % BASOPHILS RELATIVE PERCENT (BEAKER) (test lidv=701) 0 % NEUTROPHILS ABSOLUTE COUNT (BEAKER) (test feed=517) 2.87 K/ L 1.78-5.38 LYMPHOCYTES ABSOLUTE COUNT (BEAKER) (test ecaz=093) 1.71 K/ L 1.32-3.57 MONOCYTES ABSOLUTE COUNT (BEAKER) (test khsl=085) 0.42 K/ L 0.30-0.82 EOSINOPHILS ABSOLUTE COUNT (BEAKER) (test jtlj=498) 0.18 K/ L 0.04-0.54 BASOPHILS ABSOLUTE COUNT (BEAKER) (test bjba=591) 0.02 K/ L 0.01-0.08 IMMATURE GRANULOCYTES-RELATIVE PERCENT (BEAKER) (test cfyz=6054) 0 % 0-1 POCT-GLUCOSE [id number] 22:00:00* Test Item Value Reference Range Comments POC-GLUCOSE METER (BEAKER) (test vaub=3184) 101 mg/dL 70-110 TESTED AT [facility] [address] [place] [address] HEPATITIS B SURFACE [id number] 19:20:00* Test Item Value Reference Range Comments HEPATITIS B SURFACE ANTIGEN (2) (BEAKER) (test nujv=5327) Nonreactive Nonreactive HEPATITIS B SURFACE [id number] 19:20:00* Test Item Value Reference Range Comments HEPATITIS B SURFACE ANTIBODY (BEAKER) (test vpju=646) 54.5 mIU/mL <8.0 HEPATITIS B CORE ANTIBODY, [id number] 19:20:00* Test Item Value Reference Range Comments HEPATITIS B CORE TOTAL ANTIBODY (BEAKER) (test awhq=924) Nonreactive Nonreactive [id number] 17:57:00* Test Item Value Reference Range Comments FERRITIN (BEAKER) (test eowz=110) 1277 ng/mL 5-275 PTH, [id number] 17:43:00* Test Item Value Reference Range Comments PARATHYROID HORMONE INTACT (BEAKER) (test hwdi=390) 392.3 pg/mL 8.5-72.5 IRON, TIBC, % SAT. (WITHOUT FERRITIN)2017-08-29 17:43:00* Test Item Value Reference Range Comments IRON (BEAKER) (test cfie=447) 93 ug/dL 40-160 TOTAL IRON BINDING CAPACITY (BEAKER) (test rinx=261) 289 ug/dL 250-450 IRON % SATURATION (2) (BEAKER) (test eghe=0912) 32 % 20-55 [id number] 17:21:00* Test Item Value Reference Range Comments PARTIAL THROMBOPLASTIN TIME (BEAKER) (test gjax=041) 77.8 seconds 22.5-36.0 RETICULOCYTE [id number] 17:19:00* Test Item Value Reference Range Comments RETICULOCYTE COUNT PCT (BEAKER) (test ejuj=224) 2.2 % 0.5-1.8 POCT-GLUCOSE [id number] 17:00:00* Test Item Value Reference Range Comments POC-GLUCOSE METER (BEAKER) (test npxr=9679) 110 mg/dL 70-110 TESTED AT [facility] [address] [facility] [address] POCT-GLUCOSE [id number] 12:41:00* Test Item Value Reference Range Comments POC-GLUCOSE METER (BEAKER) (test rijs=3547) 100 mg/dL 70-110 TESTED AT [facility] [address] [facility] [address] [id number] 10:26:00* Test Item Value Reference Range Comments PARTIAL THROMBOPLASTIN TIME (BEAKER) (test rruo=547) 94.9 seconds 22.5-36.0 [id number] 10:25:00* Test Item Value Reference Range Comments PARTIAL THROMBOPLASTIN TIME (BEAKER) (test ayka=740) 42.0 seconds 22.5-36.0 POCT-GLUCOSE [id number] 07:54:00* Test Item Value Reference Range Comments POC-GLUCOSE METER (BEAKER) (test cdne=8363) 88 mg/dL 70-110 TESTED AT [place] [id number] 07:04:00* Test Item Value Reference Range Comments PARTIAL THROMBOPLASTIN TIME (BEAKER) (test tlwz=844) > seconds 22.5-36.0 BASIC METABOLIC [id number] 06:58:00* Test Item Value Reference Range Comments SODIUM (BEAKER) (test hhpz=826) 134 meq/L 136-145 POTASSIUM (BEAKER) (test kolc=489) 5.1 meq/L 3.5-5.1 CHLORIDE (BEAKER) (test lrav=281) 93 meq/L 98-107 CO2 (BEAKER) (test kvcx=075) 25 meq/L 22-29 BLOOD UREA NITROGEN (BEAKER) (test hygh=834) 53 mg/dL 7-21 CREATININE (BEAKER) (test jbyt=518) 8.51 mg/dL 0.57-1.25 GLUCOSE RANDOM (BEAKER) (test txww=430) 99 mg/dL 70-105 CALCIUM (BEAKER) (test gdej=429) 9.0 mg/dL 8.4-10.2 EGFR (BEAKER) (test xerr=1205) 6 mL/min/1.73 sq m ESTIMATED GFR IS NOT ACCURATE CREATININE CLEARANCE IN PREDICTING GLOMERULAR FILTRATION RATE. ESTIMATED GFR IS NOT APPLICABLE FOR DIALYSIS PATIENTS. POCT-GLUCOSE [id number] 06:50:00* Test Item Value Reference Range Comments POC-GLUCOSE METER (BEAKER) (test sqal=1506) 128 mg/dL 70-110 TESTED AT [address] [address] CBC W/PLT COUNT & AUTO [id number] 06:41:00* Test Item Value Reference Range Comments WHITE BLOOD CELL COUNT (BEAKER) (test vefm=130) 5.1 K/ L 3.5-10.5 RED BLOOD CELL COUNT (BEAKER) (test npjm=441) 3.48 M/ L 4.63-6.08 HEMOGLOBIN (BEAKER) (test jmcq=767) 11.6 GM/DL 13.7-17.5 HEMATOCRIT (BEAKER) (test zmaz=818) 36.2 % 40.1-51.0 MEAN CORPUSCULAR VOLUME (BEAKER) (test snrw=863) 104.0 fL 79.0-92.2 MEAN CORPUSCULAR HEMOGLOBIN (BEAKER) (test vfcg=725) 33.3 pg 25.7-32.2 MEAN CORPUSCULAR HEMOGLOBIN CONC (BEAKER) (test mxlf=281) 32.0 GM/DL 32.3- 36.5 RED CELL DISTRIBUTION WIDTH (BEAKER) (test zghy=326) 14.6 % 11.6-14.4 PLATELET COUNT (BEAKER) (test gujd=420) 99 K/CU MM 150-450 MEAN PLATELET VOLUME (BEAKER) (test eawk=604) 9.7 fL 9.4-12.4 NUCLEATED RED BLOOD CELLS (BEAKER) (test zigf=232) 0 /100 WBC 0-0 NEUTROPHILS RELATIVE PERCENT (BEAKER) (test oyts=830) 57 % LYMPHOCYTES RELATIVE PERCENT (BEAKER) (test zakz=371) 29 % MONOCYTES RELATIVE PERCENT (BEAKER) (test wkwe=255) 10 % EOSINOPHILS RELATIVE PERCENT (BEAKER) (test bxtv=104) 3 % BASOPHILS RELATIVE PERCENT (BEAKER) (test nonq=654) 1 % NEUTROPHILS ABSOLUTE COUNT (BEAKER) (test fukt=644) 2.89 K/ L 1.78-5.38 LYMPHOCYTES ABSOLUTE COUNT (BEAKER) (test xpto=907) 1.49 K/ L 1.32-3.57 MONOCYTES ABSOLUTE COUNT (BEAKER) (test chxf=116) 0.48 K/ L 0.30-0.82 EOSINOPHILS ABSOLUTE COUNT (BEAKER) (test rrnm=108) 0.16 K/ L 0.04-0.54 BASOPHILS ABSOLUTE COUNT (BEAKER) (test kkev=886) 0.03 K/ L 0.01-0.08 IMMATURE GRANULOCYTES-RELATIVE PERCENT (BEAKER) (test ygla=4192) 0 % 0-1 CT, CTA AAA, W/ HANSEL.EXT.[id number] 02:27:00History of AAA s/p EVAR, bilateral popliteal artery aneurysm. Evaluate for progression of disease with bilateral runoff. Include abdomen/pelvuisFINAL REPORT EXAMINATION: CTA, abdomen and pelvis and [...] sagittal reformatted images were created and reviewed. 3- dimensional rotational angiographic models of the aorta and [...] into the right external iliac artery. The [place] iliac arteries are associated with diffuse calcific [...] above with chronic bilateral SFA occlusions. Left vbbkxhy-iobvf-kfjb bypass graft is patent but associated with [...] cm left adrenal nodule. Signed: Pardeep Mathis MDReport Verified Date/Time: 08/29/2017 02:27:01 Reading Location: [address] Reading Room C METABOLIC [id number] 21:27:00* Test Item Value Reference Range Comments SODIUM (BEAKER) (test nded=213) 137 meq/L 136-145 POTASSIUM (BEAKER) (test xlsw=264) 4.3 meq/L 3.5-5.1 CHLORIDE (BEAKER) (test ifhz=934) 94 meq/L 98-107 CO2 (BEAKER) (test miup=431) 30 meq/L 22-29 BLOOD UREA NITROGEN (BEAKER) (test qgvh=736) 45 mg/dL 7-21 CREATININE (BEAKER) (test nnqb=847) 7.91 mg/dL 0.57-1.25 GLUCOSE RANDOM (BEAKER) (test azas=504) 166 mg/dL 70-105 CALCIUM (BEAKER) (test retk=506) 8.9 mg/dL 8.4-10.2 EGFR (BEAKER) (test utxs=2847) 7 mL/min/1.73 sq m ESTIMATED GFR IS NOT ACCURATE CREATININE CLEARANCE IN PREDICTING GLOMERULAR FILTRATION RATE. ESTIMATED GFR IS NOT APPLICABLE FOR DIALYSIS PATIENTS. BASIC METABOLIC [id number] 20:38:00* Test Item Value Reference Range Comments SODIUM (BEAKER) (test gwgs=107) 137 meq/L 136-145 POTASSIUM (BEAKER) (test yxeo=748) 4.7 meq/L 3.5-5.1 Specimen slightly hemolyzed CHLORIDE (BEAKER) (test egwd=595) 94 meq/L 98-107 CO2 (BEAKER) (test wmvy=579) 28 meq/L 22-29 BLOOD UREA NITROGEN (BEAKER) (test cjmm=889) 42 mg/dL 7-21 CREATININE (BEAKER) (test yqgo=798) 7.63 mg/dL 0.57-1.25 Specimen slightly hemolyzed GLUCOSE RANDOM (BEAKER) (test awvy=263) 106 mg/dL 70-105 CALCIUM (BEAKER) (test evmz=924) 9.0 mg/dL 8.4-10.2 EGFR (BEAKER) (test iucp=7222) 7 mL/min/1.73 sq m ESTIMATED GFR IS NOT ACCURATE CREATININE CLEARANCE IN PREDICTING GLOMERULAR FILTRATION RATE. ESTIMATED GFR IS NOT APPLICABLE FOR DIALYSIS PATIENTS. CBC W/PLT COUNT & AUTO [id number] 20:32:00* Test Item Value Reference Range Comments WHITE BLOOD CELL COUNT (BEAKER) (test zmuw=829) 5.3 K/ L 3.5-10.5 RED BLOOD CELL COUNT (BEAKER) (test gzug=484) 3.41 M/ L 4.63-6.08 HEMOGLOBIN (BEAKER) (test vlrt=122) 11.7 GM/DL 13.7-17.5 HEMATOCRIT (BEAKER) (test smfw=727) 35.8 % 40.1-51.0 MEAN CORPUSCULAR VOLUME (BEAKER) (test tnot=731) 105.0 fL 79.0-92.2 MEAN CORPUSCULAR HEMOGLOBIN (BEAKER) (test dgvq=546) 34.3 pg 25.7-32.2 MEAN CORPUSCULAR HEMOGLOBIN CONC (BEAKER) (test ussu=568) 32.7 GM/DL 32.3- 36.5 RED CELL DISTRIBUTION WIDTH (BEAKER) (test vxwn=324) 14.6 % 11.6-14.4 PLATELET COUNT (BEAKER) (test kcwn=871) 116 K/CU MM 150-450 MEAN PLATELET VOLUME (BEAKER) (test gevz=222) 10.0 fL 9.4-12.4 NUCLEATED RED BLOOD CELLS (BEAKER) (test vnrw=303) 0 /100 WBC 0-0 NEUTROPHILS RELATIVE PERCENT (BEAKER) (test yeyo=215) 62 % LYMPHOCYTES RELATIVE PERCENT (BEAKER) (test znak=527) 25 % MONOCYTES RELATIVE PERCENT (BEAKER) (test sril=061) 8 % EOSINOPHILS RELATIVE PERCENT (BEAKER) (test xtyg=211) 3 % BASOPHILS RELATIVE PERCENT (BEAKER) (test wpmo=803) 1 % NEUTROPHILS ABSOLUTE COUNT (BEAKER) (test vllb=804) 3.31 K/ L 1.78-5.38 LYMPHOCYTES ABSOLUTE COUNT (BEAKER) (test fylv=103) 1.34 K/ L 1.32-3.57 MONOCYTES ABSOLUTE COUNT (BEAKER) (test jkej=279) 0.44 K/ L 0.30-0.82 EOSINOPHILS ABSOLUTE COUNT (BEAKER) (test fwmi=145) 0.16 K/ L 0.04-0.54 BASOPHILS ABSOLUTE COUNT (BEAKER) (test chtv=860) 0.03 K/ L 0.01-0.08 IMMATURE GRANULOCYTES-RELATIVE PERCENT (BEAKER) (test rrxk=7026) 0 % 0-1 [id number] 20:28:00* Test Item Value Reference Range Comments PROTIME (BEAKER) (test byuh=595) 15.6 seconds 11.7-14.7 INR (BEAKER) (test iarz=497) 1.2 <=5.9 PARTIAL THROMBOPLASTIN TIME (BEAKER) (test pbaz=556) 34.1 seconds 22.5-36.0 RECOMMENDED COUMADIN/WARFARIN INR THERAPY RANGESSTANDARD DOSE: 2.0 - 3.0 Includes: PROPHYLAXIS for venous thrombosis, systemic embolization; TREATMENT for venous thrombosis and/or pulmonary embolus.HIGH RISK: Target INR is 2.5-3.5 for patients with mechanical heart valves.6 hours after starting heparin infusion and as indicated per sliding scale6 hours after starting heparin infusion and as indicated per sliding [id number] 20:28:00* Test Item Value Reference Range Comments PARTIAL THROMBOPLASTIN TIME (BEAKER) (test abnp=643) 34.1 seconds 22.5-36.0 POCT-GLUCOSE [id number] 16:39:00* Test Item Value Reference Range Comments POC-GLUCOSE METER (BEAKER) (test thvj=3964) 103 mg/dL 70-110 TESTED AT [facility] [address] [facility] [address]
[2017-11-12] MEDS ORDERED: ACETAMINOPHEN 325 MG TAB PO ONE ×2 (01:15→05:15)
[2017-11-12 01:18] LABS: BASOPHILS % 0.4 % (0.0-1.0); EOSINOPHILS % 0.3 % (0.0-6.0); HEMOGLOBIN 10.8 g/dL (14.0-18.0); LYMPHOCYTES # (AUTO) 0.8 (1.0-3.2); LYMPHOCYTES % 10.9 % (18.0-39.1); MEAN CORPUSCULAR HEMOGLOBIN 32.9 pg (28-32); MEAN CORPUSCULAR HGB CONC 30.9 g/dL (31-35); MEAN CORPUSCULAR VOLUME 106.7 fL (81-99); MONOCYTES # (AUTO) 0.4 (0.2-0.8); PLATELET COUNT 126 x10e3/uL (140-360); RED BLOOD COUNT 3.28 x10e6/uL (4.3-5.7); RED CELL DISTRIBUTION WIDTH 17.4 % (11.7-14.4)
[2017-11-12 01:28] LABS: ALBUMIN 3.4 g/dL (3.5-5.0); ALBUMIN/GLOBULIN RATIO 0.8 (0.8-2.0); CALCIUM 9.3 mg/dL (8.4-10.2)
[2017-11-12 01:34] LABS: CREATININE, SERUM 7.78 mg/dL (0.72-1.25)
[2017-11-12] MEDS ORDERED: DIATRIZOATE MEGL/DIATRIZOA SOD 30 ML BTL PO ONE (01:39)
--- NOTE | 2017-11-12 02:00 | Diagnostic Imaging Report ---
EXAM: CHEST SINGLE (PORTABLE), AP 1 view INDICATION: Fever COMPARISON: PA and lateral view of the chest October 04, 2016 FINDINGS: LINES/TUBES: None LUNGS: No consolidations or edema. PLEURA: No effusions or pneumothorax. HEART AND MEDIASTINUM: Stable cardiomegaly. BONES AND SOFT TISSUES: No acute findings. Left vascular stent. IMPRESSION: Cardiomegaly without pulmonary edema or consolidation. Signed by: Dr. Maria A Loyd M.D. on 11/12/2017 1:56 AM
--- NOTE | 2017-11-12 03:18 | Diagnostic Imaging Report ---
EXAM: CT ABDOMEN AND PELVIS without IV CONTRAST INDICATION: Diarrhea, weakness COMPARISON: CT of the chest August 25, 2015 TECHNIQUE: The abdomen and pelvis were scanned using a multidetector helical scanner. Coronal and sagittal reformations were obtained. Routine protocol performed. IV Contrast: None Oral Contrast: None CTDIvol has been reviewed. It is below the limits set by the Radiation Protocol Committee (RPC). FINDINGS: LOWER THORAX: Left lower lobe 1.2 cm nodule. Partially visualized remain mainly. LIVER: No masses BILIARY: Nonspecific gallbladder wall thickening without hydrops or pericholecystic inflammation. Possible small layering stones. No ductal dilation. SPLEEN: No masses PANCREAS: No masses ADRENALS: No nodules RIGHT KIDNEY: Chronic renal atrophy. No hydronephrosis. LEFT KIDNEY: Chronic renal atrophy. No hydronephrosis. Left interpolar region 1.5 cm exophytic lesion stable since 2016 and likely a hyperdense cyst. GI TRACT: No wall thickening or obstruction. Sigmoid colon diverticulosis. VESSELS: Procedural changes of infrarenal abdominal aortobiiliac stent graft repair of abdominal aortic aneurysm. Aneurysm diameter 4.4 cm. Unable to further evaluate without IV contrast or comparison. No evidence of rupture. 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 PERITONEUM/RETROPERITONEUM: No free air or fluid LYMPH NODES: No lymphadenopathy REPRODUCTIVE ORGANS: Normal BLADDER: Normal SOFT TISSUES: Normal BONES: No suspicious bone lesions. IMPRESSION: No acute findings in the CT of the abdomen or pelvis to explain patient's symptoms. Incidental findings including procedural repair of an infrarenal abdominal aortic aneurysm with stent graft, nonspecific gallbladder wall thickening with possible small layering stones, atrophic kidneys consistent with chronic medical renal disease, partially visualized cardiomegaly without pulmonary edema. Left lower lobe 1.2 cm pulmonary nodule. A follow-up CT of the chest without IV contrast is recommended in 3 months. Signed by: Dr. Maria A Loyd M.D. on 11/12/2017 3:14 AM
[2017-11-12 06:35] LABS: CLARITY,URINE SL CLOUDY (CLEAR); COLOR,URINE YELLOW (YELLOW)
[2017-11-12 06:36] LABS: BILIRUBIN,URINE NEGATIVE (NEGATIVE); KETONES,URINE NEGATIVE (NEGATIVE); LEUKOCYTE ESTERASE ,URINE TRACE (NEGATIVE); NITRITE,URINE NEGATIVE (NEGATIVE); PROTEIN,URINE DIPSTICK 3+ (NEGATIVE); URINE UROBILINOGEN 0.2 mg/dL (0.2 - 1)
[2017-11-12 06:38] LABS: AMORPHOUS SEDIMENT,URINE FEW (FEW); BACTERIA,URINE FEW /HPF; EPITHELIAL CELLS,URINE RARE /LPF; RBC,URINE 0-5 /HPF (0-5)
[2017-11-12] MEDS ORDERED: SODIUM CHLORIDE 0.9% 1000ML 1,000 ML IV SCH (06:44)
[2017-11-12] MEDS ORDERED: ONDANSETRON HCL 4 MG ORAL DISINTEGRATING TAB PO PRN (06:45)
[2017-11-12] MEDS ORDERED: CEFTRIAXONE SOD 1 GM VIAL IV SCH (06:45)
[2017-11-12] MEDS ORDERED: ACETAMINOPHEN 325 MG TAB PO PRN (06:45)
[2017-11-12] MEDS ORDERED: CEFTRIAXONE SOD 1 GM VIAL ONE (06:45)
--- OUTSIDE RECORDS SUMMARY | 2017-11-12 06:53 | XMS REPORT | Clinical Summary ---
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 ([facility]) 08/31/2015 Hypertension complicating diabetes ([facility]) 08/31/2015 ESRD (end stage renal disease) on dialysis ([facility]) 08/31/2015 Ischemic cardiomyopathy 08/31/2015 Chronic combined systolic and diastolic CHF (congestive heart failure) 08/31 ([facility]) Multi-vessel coronary artery stenosis 08/28/2015 Dialysis patient ([facility]) Encounters Date Type Specialty Care Team Description 09/19/2017 Office Visit Cardiology Naomi Olivas NP Chronic combined systolic and diastolic CHF (congestive heart failure) ([facility]) (Primary Dx) 09/07/2017 Procedure Pass 09/07/2017 Surgery Damaso Rey, BYPASS,FEMORAL-POPLITEAL 09/04/2017 [facility] Cardiology Reynaldo Stinson MD Critical ischemia of foot - Encounter Ace Foy MD (Primary Dx);Lower 09/15/2017 Arun Daigle MD extremity pain, anterior, LisseGeorge MD right;Bilateral popliteal artery aneurysm ([facility]);Dialysis patient ([facility]);End stage renal disease ([facility]);Ischemic rest pain of lower extremity ([facility]);Hypertension complicating diabetes ([facility]);Ischemic cardiomyopathy;Multi-vess el coronary artery stenosis;PAD (peripheral artery disease) ([facility]);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 ([facility]);Smoking;Hyperkalemi a 09/04/2017 Anesthesia BusterPhill MD Event 09/04/2017 Orders Only General Internal Medicine 09/04/2017 Procedure Pass 08/30/2017 Procedure Pass 08/28/2017 [facility] Internal Medicine Brendon Foy MD Chronic combined systolic - Encounter Shoshana Mai MD and diastolic CHF 08/30/2017 (congestive heart failure) (HCC);Aneurysm of right popliteal artery (HCC);Aneurysm of left popliteal artery (HCC);Atherosclerosis of caddo artery of right lower extremity with rest [...] INFLUENZA VACCINE 04/09/2018 Implants Implanted Type Area Outdoor Studies Professor Device Expiration Model / Identifier Date Serial / Lot Patch Vasc [place] 1.65mm 1x6in Graft/Patc Right: Leg CR 06/06/2022 [id number] / [id number] - [id number] BARD:PERIPHERAL / Implanted: Qty: 1 on 09/07/2017 by [facility] [id number] Damaso Rey MD iWOPI 03/18/2016 [id number] Implanted: Qty: 1 on 09/04/2015 [employer] [id number] / / [id number] View[employer] HEBRON 04/09/2016 [id number] Implanted: Qty: 1 on 09/04/2015 SCIENTIFIC [id number] / / [id number] Procedures Procedure Name Priority Date/Time Associated Diagnosis Comments ENDOSCOPIC HARVEST,VEIN 09/07/2017 Popliteal artery aneurysm 11:30 AM [facility] (HCC) Case Notes RIGHT FEMORAL POPLITEAL BYPASS W/ENDOVENO HARVESTING LOWER EXTREMITY Special Needs (REQ 1:30) BYPASS,FEMORAL-POPLITEAL 09/07/2017 Popliteal artery aneurysm 11:30 AM [facility] (HCC) Case Notes RIGHT FEMORAL POPLITEAL BYPASS [...] Range POC-Glucose Meter 131 (H)Comment: TESTED AT [address] 70 - 110 mg /dL [facility] [id number] Specimen Performing Laboratory Blood [address] [address] * Calcium, Ionized (09/15/2017 8:59 AM) Only the most recent of 4 results within the time period is included. Component Value Ref Range Calcium, Ion 1.02 (L) 1.12 - 1.27 mmol/L pH, Blood 7.39 Specimen [place] [address] * CBC with platelet count + automated [...] 1 % Granulocytes-Relative Specimen [place] [address] * CBC with platelet count + automated diff (09/15/2017 8:59 AM) Only the most recent of 14 results within the time period is included. Specimen Performing Laboratory Blood Narrative The following orders were created for panel order CBC with platelet count + automated diff. Procedure Abnormality Status --------- - ------ CBC with platelet count ...[[id number]]AbnormalFinal result Please view results for these tests on the individual orders. * Phosphorus (09/15/2017 8:59 AM) Only the most recent of 9 results within the time period is included. Component Value Ref Range Phosphorus 3.1 2.3 - 4.7 mg/dL Specimen [place] [address] * Magnesium (09/15/2017 8:59 AM) Only the most recent of 10 results within the time period is included. Component Value Ref Range Magnesium 2.0 1.6 - 2.6 mg/dL Specimen [place] [address] * Basic Metabolic Panel (09/15/2017 8:59 AM) [...] FOR DIALYSIS PATIENTS. Specimen [place] [address] * Prepare Leuko-Red RBC (09/14/2017 11:54 PM) Only the most recent of 3 results within the time period is included. Component Value Ref Range Unit ABO O Pos UNIT NUMBER [id number] Status TRANSFUSED Blood Bank Product RED BLOOD CELLS PRODUCT CODE [id number] CROSSMATCH COMPATIBLE Specimen Performing Laboratory Other [place] * Transfuse Leuko-Red RBC (09/13/2017 1:03 PM) Only the most recent of 4 results within the time period is included. * Prepare RBC (09/13/2017 12:19 PM) Only the most recent of 2 results within the time period is included. Component Value Ref Range Unit ABO O Pos UNIT NUMBER [id number] Status READY Blood Bank Product RED BLOOD CELLS PRODUCT CODE [id number] CROSSMATCH COMPATIBLE Specimen Performing Laboratory [place] [place] * Type and screen, automated (09/12/2017 10:23 AM) Only the most recent of 3 results within the time period is included. Component Value Ref Range ABO/RH AUTOMATED (BEAKER) O POSITIVE Ab Scrn NEGATIVE Specimen Performing Laboratory Blood [address] [address] * aPTT (09/09/2017 5:53 AM) Only the most recent of 20 results within the time period is included. Component Value Ref Range PTT 48.3 (H) 22.5 - 36.0 seconds Specimen Performing Laboratory Blood [address] [address] * Potassium (09/08/2017 12:52 PM) Component Value Ref Range Potassium 4.4 3.5 - 5.1 meq/L Specimen Performing Laboratory Blood [address] [address] * CBC (hemogram only) (09/08/2017 7:17 AM) [...] 0 /100 WBC Specimen Performing Laboratory Blood [address] [address] * PT/aPTT (09/07/2017 9:05 PM) Only the most recent of 2 results within the time period is included. Component Value Ref Range Protime 14.6 11.7 - 14.7 seconds INR 1.1 <=5.9 PTT 40.4 (H) 22.5 - 36.0 seconds Specimen Performing Laboratory Blood [address] [address] Narrative RECOMMENDED COUMADIN/WARFARIN INR THERAPY RANGES STANDARD [...] INR 1.1 <=5.9 Specimen Performing Laboratory Blood [address] [address] Narrative RECOMMENDED COUMADIN/WARFARIN INR THERAPY RANGES STANDARD [...] Range Activated Clotting Time 158Comment: TESTED AT [address] [place] [address] Specimen Performing Laboratory Blood [address] [address] * RRL Critical Labs (ABG,NA,K,H&H,GLU) (09/07/2017 5:13 PM) Only the most recent of 2 results within the time period is included. Specimen Performing Laboratory Blood Narrative The following orders were created for panel order RRL Critical Labs (ABG,NA,K,H& H,GLU). Procedure Abnormality Status --------- - ------ Blood gas, arterial[[id number]]Abnormal Final result Sodium Na-Stat Lab[[id number]] Abnormal Final result Potassium-Stat Lab[[id number]] Normal Final result Glucose-Stat Lab[[id number]] Abnormal Final result HGB/HCT (H&H)-Stat Lab[[id number]] Abnormal Final result Please view results for these tests on the individual orders. * Potassium-Stat Lab (09/07/2017 5:13 PM) Only the most recent of 2 results within the time period is included. Component Value Ref Range Potassium 4.7 3.6 - 5.5 meq/L Specimen [place] [address] * Sodium Na-Stat Lab (09/07/2017 5:13 PM) Only the most recent of 2 results within the time period is included. Component Value Ref Range Sodium 134 (L) 135 - 148 meq/L Specimen [place] [address] * Glucose-Stat Lab (09/07/2017 5:13 PM) Only the most recent of 2 results within the time period is included. Component Value Ref Range Glucose 66 (L) 70 - 110 mg/dL Specimen [place] [address] * HGB/HCT (H&H)-Stat Lab (09/07/2017 5:13 PM) Only the most recent of 2 results within the time period is included. Component Value Ref Range Hemoglobin 10.4 (L) 13.0 - 16.8 g/dL Hematocrit 31.0 (L) 40.0 - 50.0 % Specimen Performing Laboratory Blood [address] [address] * Blood gas, arterial (09/07/2017 5:13 PM) [...] 100.0 % Specimen Performing Laboratory Blood [facility] [address] [address] * ECHOCARDIOGRAM REPORT - SCAN (09/05/2017 6:50 PM) * 2D Echo W/Doppler(CW/PW/Color) (09/05/2017 12:15 PM) Component Value Ref Range Ejection Fraction Specimen Performing Laboratory [facility] ECHO HEARTLAB MKCKESSON CPACS Narrative Transthoracic Echocardiography Report (TTE) Demographics Patient NameSALINAS,Date of Study 09/05/2017 BRUNO Tidwell Male Visit [id number] Room Number 1110 Number Date of 4Referring Jun Mena Physician Age 72 year(s)Business Management Analyst JORGE LUIS Parra, RDCS,RVT,RDMS Interpreting Gabe Padilla [...] elevated LA pressure). Left AtriumLA size is xfbs-ye-ddgerwdpib enlarged . Right VentricleRV chamber size is moderately enlarged . Global RV systolic function is depressed . Right Atrium RA cavity size is moderately enlarged . Aortic Valve Moderate AoV cusp thickening. Ikgc-qb-fpfodlzu AoV cusp calcification. Mild aortic stenosis. A trace of aortic regurgitation. Mitral Valve Rbtm-lm-osqaveeo MV leaflet thickening. Mild mitral regurgitation. Tricuspid [...] External Ris In - 09/05/2017 6:20 PM [facility] Transthoracic Echocardiography Report (TTE) Demographics Patient Name PAUL, Date of Study 09/05/2017 BRUNO Tidwell Gender Male Visit Number [id number] Race Room Number 1110 Number Date of 1945 Referring Jun Mena Physician Age 72 year(s) Business Management Analyst JORGE LUIS Parra, RDCS,RVT,RDMS Interpreting Gabe Padilla [...] LA pressure). Left Atrium LA size is qjgq-zi-rdyxmcfapw enlarged . Right Ventricle RV chamber size is moderately enlarged . Global RV systolic function is depressed . Right Atrium RA cavity size is moderately enlarged . Aortic Valve Moderate AoV cusp thickening. Byga-ti-phnpaajy AoV cusp calcification. Mild aortic stenosis. A trace of aortic regurgitation. Mitral Valve Ijrr-ok-zmegjkmd MV leaflet thickening. Mild mitral regurgitation. Tricuspid [...] time period is included. Specimen Performing Laboratory appening Narrative Ventricular Rate 71 BPM Atrial Rate 71 BPM P-R Interval 228 ms QRS Duration 146 ms Q-T Interval 454 ms QTC Calculation(Bazett) 493 ms R [place] 31 degrees T [place] 182 degrees Sinus rhythm with 1st degree A-V block Non-specific intra-ventricular conduction delay Abnormal ECG When compared with ECG of 28-AUG-2017 18:31, Significant changes have occurred Confirmed by MD Bunn Roberto ([id number]) on 09/05/2017 2:23:21 PM Procedure Note Interface, External Ris In - 09/05/2017 2:23 PM [facility] Ventricular Rate 71 BPM Atrial Rate 71 BPM P-R Interval 228 ms QRS Duration 146 ms Q-T Interval 454 ms QTC Calculation(Bazett) 493 ms R [place] 31 degrees T [place] 182 degrees Sinus rhythm with 1st degree [...] Ag Nonreactive Nonreactive Specimen Performing Laboratory Blood [address] [address] Narrative For chronic HD patients, draw HBsAg with each admission then every 30 days. * Platelet count (09/04/2017 2:09 PM) Component Value Ref Range Platelets 94 (L) 150 - 450 K/CU MM Specimen Performing Laboratory Blood [address] [address] * Lipid panel (09/04/2017 10:18 AM) Component Value Ref Range Triglycerides 196 mg/dL Cholesterol 85 mg/dL HDL 27 mg/dL LDL Calculated 19 mg/dL Specimen Performing Laboratory Blood [address] [address] Narrative Triglyceride Reference Range: Low Risk <150 Ighdvnklvi043-313 High Risk 200-499 Very High Risk>=500 Cholesterol Reference Range: Low Risk <200 Vjdyvnxcdf523-514 High Risk>240 HDL Cholesterol Reference Range: Low Risk >=60 High Risk <40 LDL Cholesterol Reference Range: Optimal<100 Near Fukbztm852-135 Uqwhlcvgrt194-762 Wwed598-493 Very High >=190 * Iron, TIBC, % sat. (without ferritin) (08/29/2017 4:56 PM) Component Value Ref Range Iron 93 40 - 160 ug/dL TIBC 289 250 - 450 ug/dL Iron % Saturation 32 20 - 55 % Specimen Performing Laboratory [address] [address] * Hepatitis B core antibody, total (08/29/2017 4:56 PM) Component Value Ref Range Hep B Core Total Ab Nonreactive Nonreactive Specimen Performing Laboratory [address] [address] * Hepatitis B surface antibody (08/29/2017 4:56 PM) Component Value Ref Range Hep B S Ab 54.5 (H) <8.0 mIU/mL Specimen Performing Laboratory [address] [address] * Reticulocyte count (08/29/2017 4:56 PM) Component Value Ref Range % Retic 2.2 (H) 0.5 - 1.8 % Specimen Performing Laboratory [address] [address] * PTH, intact (08/29/2017 4:56 PM) Component Value Ref Range PTH 392.3 (H) 8.5 - 72.5 pg/mL Specimen Performing Laboratory [address] [address] * Ferritin (08/29/2017 4:56 PM) Component Value Ref Range Ferritin 1277 (H) 5 - 275 ng/mL Specimen Performing Laboratory [place] [id number] * PERIPHERAL VASCULAR REPORT - SCAN (08/29/2017 [...] Patient Name HUMBERTO,Date of Study2017 BRUNO Tidwell [id number] Visit Number [id number] Male Accession Number [id number] of Birth1945 Alisia Anna MD Room [id number] Physician Josemanuel WilhelmInterpreradha Rutherford MD, Physician RPELA [...] External Ris In - 08/29/2017 12:15 PM [facility] PV LAB - Lower Extremities Vein Mapping Demographics Patient Name HUMBERTO, Date of Study 08/29/2017 BRUNO Tidwell Age 72 Visit Number [id number] Gender Male Accession Number [id number] Date of 1945 Referring Pau Anna MD Room Number 701 Physician Business Management Analyst Mega Wilhelm Interpreting John Rutherford MD, Physician [...] Runoff (08/28/2017 11:42 PM) Specimen Performing Laboratory [employer] FINAL REPORT EXAMINATION: CTA, abdomen and pelvis [...] into the right external iliac artery. The caddo iliac arteries are associated with diffuse calcific [...] above with chronic bilateral SFA occlusions. Left dujvhuh-sttgj-wnqn bypass graft is patent but associated with [...] MD Report Verified Date/Time:08/29/2017 02:27:01 Reading Location: [address] Reading Room Procedure Note Interface, External Ris In - 08/29/2017 2:29 AM [facility] FINAL REPORT EXAMINATION: CTA, abdomen and pelvis [...] into the right external iliac artery. The [place] iliac arteries are associated with diffuse calcific [...] above with chronic bilateral SFA occlusions. Left kxcxtlw-ksvkb-fmsz bypass graft is patent but associated with [...] Report Verified Date/Time: 08/29/2017 02:27:01 Reading Location: [address] Reading Room after 11/11/2016
[2017-11-12] MEDS ORDERED: DEXTROSE 50% SYRINGE 50 ML IV PRN (07:00)
[2017-11-12] MEDS: INSULIN REGULAR, HUMAN 100 UNIT/1 ML 3ML VIAL SQ SCH ×4 (07:13→21:00)
[2017-11-12] MEDS ORDERED: RENVELA800 MG PO (11:24)
[2017-11-12] MEDS ORDERED: ACETAMINOPHEN325 M1 PO (11:24)
[2017-11-12] MEDS ORDERED: FUROSEMIDE40 MG PO (11:24)
[2017-11-12] MEDS ORDERED: PANTOPRAZOLE SO20 MG PO (11:24)
[2017-11-12] MEDS ORDERED: GABAPENTIN300 MG PO (11:24)
[2017-11-12] MEDS ORDERED: CALCIUM ACETATE 667 MG GELCAP PO SCH (12:00)
[2017-11-12] MEDS: PIPERACILLIN/TAZO 2.25 GM 50 ML IV SCH ×2 (12:44→21:13)
[2017-11-12] MEDS: SEVELAMER CARBONATE 800 MG TAB PO SCH ×2 (12:44→16:39)
[2017-11-12] MEDS: METRONIDAZOLE 500MG/NS 100ML 100 ML IV SCH ×2 (13:17→22:06)
--- NOTE | 2017-11-12 14:42 | History and Physical ---
CHIEF COMPLAINT: Diarrhea, fever, urinary tract infection, and rectal bleed. HISTORY: A 72-year-old male who came back from [place] approximately 2 weeks ago, and since then, the patient was having recurrent abdominal pain, but then few days later, something he ate and developed into a severe diarrhea. He has also noticed rectal bleed as well. Patient is very weak. He is dehydrated, has fever, brought into the emergency room here for admission. Here, the patient received CT scan of abdomen and pelvis without any gross abnormality, although the test is without IV contrast. Patient seems weak and dehydrated, IV fluids initiated. He did receive 1 bolus of fluid in the emergency room. The patient's blood pressure remained low at this time. PAST MEDICAL HISTORY: End-stage renal disease, on dialysis. Diabetes, on insulin therapy. Peripheral vascular disease. Cardiomyopathy, coronary disease, hypertension, depression, anxiety disorder, and functional dementia. PAST SURGICAL HISTORY: Patient had abdominal aortic repair, dialysis, coronary artery bypass graft surgery, left arm shunt, PCI, left toe amputation, and peripheral vascular stent. SOCIAL HISTORY: Patient does not smoke or use alcohol. No recreational drugs. ALLERGIES: NO KNOWN ALLERGIES. HOME MEDICATIONS: List reviewed. REVIEW OF SYSTEMS: As mentioned previously. The patient seems weak. PHYSICAL EXAMINATION VITAL SIGNS: Temperature is 101, blood pressure 96/58, pulse rate is 80, and respirations 20. GENERAL: The patient seems weak, but not in distress. HEENT: Normocephalic, atraumatic. Anicteric. NECK: Supple grossly. PULMONARY: Diminished breath sounds bilaterally. CARDIOVASCULAR: S1 and S2. Regular rate and rhythm. ABDOMEN: Generalized tenderness. No rebound or guarding. EXTREMITIES: No gross cyanosis or edema. NEUROLOGIC: No focal deficit. LABORATORY: Sodium is 134, potassium 5, chloride 93, bicarb 27, BUN 48, creatinine 7.8, and glucose 121. WBC 7.3, hemoglobin 10.8, hematocrit 35, and platelets 126. IMPRESSION 1. Sepsis with shock, low blood pressure, fever, possible infected diarrhea with colitis, and with urinary tract infection. 2. Baseline end-stage renal disease, on dialysis. 3. Multiple chronic comorbidities including coronary disease, hypertension, diabetes type 2, peripheral vascular disease, history of aortic aneurysm repair, and multiple other chronic medical problems. PLAN: IV antibiotics. Consultation with Dr. Baxter for dialysis. Consultation with Dr. Shebib for sepsis with shock. Home medications. Insulin treatment. Consultation with Dr. Martin for the colitis, possible endoscopy, rectal bleed. We will monitor this patient very closely. Job#: [id number] VAS
[2017-11-12] MEDS ORDERED: VANCOMYCIN 1GM/NS 250 ML 250 ML IV ONE (15:15)
--- NOTE | 2017-11-12 15:34 | Consultation ---
DATE OF CONSULTATION: November 12, 2017 REASON FOR CONSULTATION: End-stage renal disease. HPI: Mr. Sharif is a pleasant, 72-year-old man who follows under our care at [facility] on a Monday, Monday, and Monday schedule. He presented to [facility] early this morning due to weakness and fever. According to the patient, he had a fever of 101 at home. He denies cough, nausea, vomiting, sputum production, pain or burning with urination. Upon presentation, he was started on Zosyn and Flagyl and given a dose of ceftriaxone. His urine was positive for pyuria and trace leukocyte esterase. Otherwise, screening for infection has been negative. Currently, blood cultures are pending. Since presentation, he has been febrile with a T-max of 100.6. He undergoes dialysis through a fistula. REVIEW OF SYSTEMS: He currently denies fever, chills, nausea, vomiting, diarrhea, chest pain, palpitations, abdominal pain, pain or burning with urination, numbness or tingling in upper and lower extremities, changes in mood, changes in appetite, changes in thirst. PAST MEDICAL HISTORY 1. Hypertension. 2. Diabetes. 3. End-stage renal disease. PAST SURGICAL HISTORY: Fistula placement. ALLERGIES: NO KNOWN DRUG ALLERGIES. FAMILY HISTORY: Positive for hypertension and diabetes. SOCIAL HISTORY: No alcohol, tobacco or recreational drug use. MEDICATIONS: Reviewed in the electronic record. PHYSICAL EXAMINATION GENERAL: He is lying comfortably in bed, in no acute distress. VITAL SIGNS: Temperature 98.8, heart rate 72, respiratory rate 20, blood pressure 132/84. O2 sat is 96% on 2 L nasal cannula. HEENT: NC, AT, EOMI. NECK: Supple. JVP not appreciated. LUNGS: Slightly decreased breath sounds at the bases. Otherwise, no wheezing or rales. HEART: Regular rhythm, S1 and S2, no murmurs. ABDOMEN: Soft, nontender. Positive for distention. EXTREMITIES: No edema. Intact pulses. SKIN: No rashes or lesions. MUSCULOSKELETAL: Normal gait. Normal inspection. NEURO: Cranial nerves II through XII are grossly intact. No focal deficits. LABS: Reviewed on electronic medical record. Significant for hemoglobin 10.8, sodium 134, chloride 93, BUN 48, creatinine 7.7. Urine showed trace leukocyte esterase, 11-20 WBCs, trace blood, 3+ protein. He makes minimal urine. IMAGING: Reviewed on electronic medical record. CT of the abdomen and pelvis performed on presentation without IV contrast showed no acute findings, but it did show a left lower lobe pulmonary nodule that will require followup. Chest x-ray performed on presentation showed cardiomegaly without pulmonary edema or consolidation. ASSESSMENT AND PLAN 1. End-stage renal disease. Will continue dialysis on Monday, Monday, Monday schedule. Electrolytes and volume status reviewed today. No urgent indication for dialysis. 2. Medications currently dosed appropriately for renal function. Blood cultures have now normalized. In the setting of minimal urine output, will stop maintenance IV fluids. 3. Hyperphosphatemia. Will stop PhosLo and continue Renvela. Will repeat phos level in the a.m. 4. Hypotension. Blood pressure is now controlled. Will stop the midodrine. Thank you for allowing me to participate in the care of Mr. Sharif. We will continue to follow closely. Job#: [id number]
[2017-11-12] MEDS: ACETAMINOPHEN 325 MG TAB PO PRN (16:29)
[2017-11-12] MEDS: BUDESONIDE/FORMOTEROL 160/4.5MCG INHALER INH PRN (20:55)
[2017-11-12] MEDS ORDERED: MIDODRINE 2.5 MG TAB PO SCH (21:00)
[2017-11-12] MEDS ORDERED: ATORVASTATIN 20 MG TAB PO SCH (21:00)
[2017-11-12] MEDS: ATORVASTATIN 40 MG TAB PO SCH (21:13)
[2017-11-13 01:06] VITALS: BP 100/52
[2017-11-13] MEDS: PIPERACILLIN/TAZO 2.25 GM 50 ML IV SCH ×3 (03:16→22:15)
[2017-11-13 05:47] VITALS: BP 104/48
[2017-11-13 06:50] LABS: BASOPHILS % 0.3 % (0.0-1.0); EOSINOPHILS # (AUTO) 0.1 (0.0-0.4); EOSINOPHILS % 1.2 % (0.0-6.0); HEMATOCRIT 30.1 % (38.2-49.6); HEMOGLOBIN 9.5 g/dL (14.0-18.0); LYMPHOCYTES # (AUTO) 0.8 (1.0-3.2); LYMPHOCYTES % 11.2 % (18.0-39.1); MEAN CORPUSCULAR HEMOGLOBIN 33.2 pg (28-32); MEAN CORPUSCULAR HGB CONC 31.6 g/dL (31-35); MEAN CORPUSCULAR VOLUME 105.2 fL (81-99); MONOCYTES # (AUTO) 0.7 (0.2-0.8); MONOCYTES % 9.7 % (4.4-11.3); NEUTROPHILS # (AUTO) 5.2 (2.1-6.9); NEUTROPHILS % 76.7 % (38.7-80.0); PLATELET COUNT 94 x10e3/uL (140-360); RED BLOOD COUNT 2.86 x10e6/uL (4.3-5.7); RED CELL DISTRIBUTION WIDTH 17.4 % (11.7-14.4)
[2017-11-13 07:20] LABS: ALBUMIN/GLOBULIN RATIO 0.8 (0.8-2.0); ANION GAP 20.6 mmol/L (8-16); CALCIUM 8.6 mg/dL (8.4-10.2); CREATININE, SERUM 10.65 mg/dL (0.72-1.25); POTASSIUM 5.6 mmol/L (3.5-5.1)
[2017-11-13 07:29] LABS: PHOSPHORUS 5.4 MG/DL (2.3-4.7)
[2017-11-13 07:39] LABS: THYROID STIMULATING HORMONE 1.95 uIU/mL (0.350-4.940)
[2017-11-13 08:00] VITALS: BP 92/50
[2017-11-13] MEDS: INSULIN REGULAR, HUMAN 100 UNIT/1 ML 3ML VIAL SQ SCH ×4 (08:00→20:46)
[2017-11-13] MEDS: PANTOPRAZOLE SOD 40 MG TABEC PO SCH (08:30)
[2017-11-13] MEDS ORDERED: INSULIN GLARGINE HUM REC ANLOG 30 UNIT SQ SCH (09:00)
[2017-11-13] MEDS ORDERED: VITAMIN B COMP W C PO SCH (09:00)
[2017-11-13] MEDS ORDERED: FOLIC ACID PO SCH (09:00)
[2017-11-13] MEDS ORDERED: NON-FORMULARY MEDICATION (Pantoprazole Sodium 40 MG) PO SCH (09:00)
[2017-11-13] MEDS: FOLIC ACID/CYANOCOB/PYRIDOXINE TAB PO SCH (09:03)
[2017-11-13] MEDS: METRONIDAZOLE 500MG/NS 100ML 100 ML IV SCH ×2 (09:03→23:15)
[2017-11-13] MEDS: SEVELAMER CARBONATE 800 MG TAB PO SCH ×3 (09:03→17:37)
[2017-11-13] MEDS: INSULIN DETEMIR 100 UNIT/ML PEN SQ SCH (09:04)
[2017-11-13] MEDS: ALLOPURINOL 100 MG TAB PO SCH (09:04)
--- NOTE | 2017-11-13 10:04 | Progress Note ---
DATE: November 13, 2017 RENAL PROGRESS NOTE SUBJECTIVE: Followed for end-stage renal disease, tolerating dialysis Monday, Monday and Monday. No nausea, no vomiting, no shortness of breath. OBJECTIVE VITAL SIGNS: Have been noted and are stable. Blood pressure 104/48, 81 pulse, respirations 19. LUNGS: Clear to auscultation bilaterally with minimal crackles at the bases. CARDIOVASCULAR: S1 and S2. No rub. ABDOMEN: Soft. Nontender. EXTREMITIES: No edema. LABS: Hemoglobin 9.5 and 30.1 hematocrit. Chemistries: Potassium 5.6, sodium 133, CO2 24, creatinine 10.65. IMPRESSION AND PLAN 1. End-stage renal disease. Continue dialysis Monday, Monday and Monday. 2. Hypertension, stable. Will continue with the midodrine 1 hour before each dialysis to allow for better ultrafiltration with dialysis. 3. Hyperkalemia. Will have dialysis today. Will also continue oral sodium bicarbonate. 4. Anemia of chronic disease, stable. Will continue to monitor. Job#: [id number]
[2017-11-13] MEDS: MIDODRINE 2.5 MG TAB PO SCH (10:13)
[2017-11-13 12:00] VITALS: BP 105/53
[2017-11-13] MEDS ORDERED: SODIUM CHLORIDE 0.9% 1000ML 2,000 ML ONE (13:31)
[2017-11-13] MEDS ORDERED: SODIUM CHLORIDE 0.9% 1000ML 2,000 ML IV PRN (15:15)
[2017-11-13] MEDS ORDERED: ALBUMIN 25% 12.5GM 0.25 GM/ML BTL IV PRN (15:15)
[2017-11-13] MEDS ORDERED: SODIUM CHLORIDE 0.9% 250ML 500 ML IV PRN (15:15)
[2017-11-13] MEDS ORDERED: MANNITOL 25% 12.5GM/50 ML VIAL IV PRN (15:15)
[2017-11-13 16:00] VITALS: BP 97/54
[2017-11-13] MEDS ORDERED: PHENYLEPH/SHARK OIL/MO/PETROL 30 GM OINT RC PRN (18:30)
--- NOTE | 2017-11-13 19:59 | Consultation ---
DATE OF CONSULTATION: November 13, 2017 GASTROENTEROLOGY CONSULTATION ATTENDING PHYSICIAN: Flo Cordova MD. REASON FOR CONSULT: Rectal bleeding. CHIEF COMPLAINT: Diarrhea, fever, rectal bleeding. HISTORY OF PRESENT ILLNESS: Patient is a 72-year-old male with past medical history of hypertension, diabetes, end-stage renal disease, cardiomyopathy, depression, anxiety disorder and PVD, who presented to the ER on November 12 with reports of weakness and fever. Family states that he was very dehydrated and had diarrhea. There were reports of recent travel as he just came back from [place] about 2 weeks ago. He denies any nausea, vomiting, abdominal pain, dysphagia, or nocturnal awakening. In the ER he was given Flagyl and Zosyn as well as ceftriaxone. He was found to have a UTI. Currently he is undergoing dialysis. His family states he has never had an EGD or colonoscopy in the past. He does have a history of hemorrhoids and has had hemorrhoidal bleeding. When he was having the hemorrhoidal bleeding, his family states that he used the Preparation H cream and it usually worked well. His hemoglobin is currently 9.5. REVIEW OF SYSTEMS: He denies any fevers, chills, nausea, vomiting, chest pain, shortness of breath, dysuria. PAST MEDICAL HISTORY: End-stage renal disease on dialysis, diabetes, PVD, cardiomyopathy, hypertension, depression. PAST SURGICAL HISTORY: Fistula placement, abdominal aortic repair, coronary artery bypass graft surgery, PCI, peripheral vascular stent, left toe amputation. SOCIAL HISTORY: Patient denies any alcohol, tobacco or recreational drug use. HOME MEDICATIONS: Reviewed from list. PHYSICAL EXAMINATION VITAL SIGNS: Temp is 97.3, pulse 71, respiratory rate 19, bp 97/54, pulse ox is 100. GENERAL: A\T\O x3. HEENT: Normocephalic, anicteric, atraumatic. NECK: Nontender, supple. LUNGS: Clear to auscultation bilaterally. CARDIOVASCULAR: Regular rate and rhythm. ABDOMEN: Nontender, soft. Bowel sounds active. No mass, no rebound or guarding, no hernia. EXTREMITIES: No cyanosis or edema. NEUROLOGICAL: Alert, oriented. PSYCH: Unable to assess. LABS: Hemoglobin 9.5, hematocrit 30.1, MCV 105.2, white count 6.79, platelet count 94. Sodium 133, potassium 5.6. T-bili 2.1, AST 13, ALT 10, alk phos 80. ASSESSMENT 1. Rectal bleeding secondary to hemorrhoids. 2. Diarrhea, improving. 3. Abdominal pain, improving. 4. Anemia, hemoglobin is 9.5. 5. End-stage renal disease on hemodialysis. PLAN 1. We have ordered hemorrhoidal creams and supportive therapy to help with the hemorrhoidal bleeding. 2. Patient has never had an EGD or colonoscopy so is warranted for an outpatient followup. 3. We will monitor the H\T\H and, if the hemoglobin drops, then we will consider doing an inpatient colonoscopy. 4. Fecal occult blood has been ordered. We will monitor for results. Thank you for consulting. We will follow. Dictated by: Promise Medellin PA-C Patient seen and examined; agree with documentation as above. Job#: [id number] EV MTDD
[2017-11-13 20:00] VITALS: BP 118/55
[2017-11-13] MEDS ORDERED: SODIUM CHLORIDE 0.9% 50ML 50 ML ONE ×2 (20:02→20:03)
[2017-11-13] MEDS ORDERED: SODIUM CHLORIDE 0.9% 250ML 250 ML ONE (20:03)
[2017-11-13] MEDS: VANCOMYCIN 1GM/NS 250 ML 250 ML IV SCH (20:11)
[2017-11-13] MEDS: ATORVASTATIN 40 MG TAB PO SCH (20:39)
[2017-11-14] VITALS: BP 112/60
[2017-11-14] MEDS: PIPERACILLIN/TAZO 2.25 GM 50 ML IV SCH ×2 (04:30→12:59)
[2017-11-14 06:48] LABS: BASOPHILS % 0.4 % (0.0-1.0); EOSINOPHILS # (AUTO) 0.2 (0.0-0.4); EOSINOPHILS % 3.2 % (0.0-6.0); HEMATOCRIT 30.3 % (38.2-49.6); HEMOGLOBIN 9.2 g/dL (14.0-18.0); LYMPHOCYTES # (AUTO) 0.9 (1.0-3.2); LYMPHOCYTES % 17.3 % (18.0-39.1); MEAN CORPUSCULAR HEMOGLOBIN 32.5 pg (28-32); MEAN CORPUSCULAR HGB CONC 30.4 g/dL (31-35); MEAN CORPUSCULAR VOLUME 107.1 fL (81-99); MONOCYTES # (AUTO) 0.7 (0.2-0.8); MONOCYTES % 12.4 % (4.4-11.3); NEUTROPHILS # (AUTO) 3.6 (2.1-6.9); NEUTROPHILS % 66.5 % (38.7-80.0); PLATELET COUNT 96 x10e3/uL (140-360); RED BLOOD COUNT 2.83 x10e6/uL (4.3-5.7); RED CELL DISTRIBUTION WIDTH 17.2 % (11.7-14.4)
[2017-11-14] MEDS: BUDESONIDE/FORMOTEROL 160/4.5MCG INHALER INH PRN (07:10)
[2017-11-14 07:13] LABS: ANION GAP 16.7 mmol/L (8-16); CREATININE, SERUM 6.48 mg/dL (0.72-1.25); POTASSIUM 4.7 mmol/L (3.5-5.1)
[2017-11-14] MEDS: INSULIN REGULAR, HUMAN 100 UNIT/1 ML 3ML VIAL SQ SCH ×4 (07:30→21:00)
[2017-11-14 08:00] VITALS: BP 113/58
[2017-11-14] MEDS: PANTOPRAZOLE SOD 40 MG TABEC PO SCH (08:30)
[2017-11-14] MEDS: SEVELAMER CARBONATE 800 MG TAB PO SCH ×3 (09:00→17:21)
--- NOTE | 2017-11-14 09:21 | Progress Note ---
DATE: November 14, 2017 RENAL PROGRESS NOTE SUBJECTIVE: Followed for end-stage renal disease, tolerating dialysis Monday, Monday and Monday. Had dialysis yesterday without any problems. No nausea, no vomiting, no shortness of breath. Has positive blood cx with MRSA and AVF site looks infected OBJECTIVE VITAL SIGNS: Noted. Blood pressure is much better after the midodrine was restarted. The blood pressure today is 112/60, 75 pulse, 18 respirations, afebrile. LUNGS: Clear to auscultation bilaterally. CARDIOVASCULAR: S1 and S2. No rub. ABDOMEN: Soft. Positive bowel sounds. EXTREMITIES: No edema. LABS: Reviewed. Potassium is 4.7, bicarb 28, BUN 39, creatinine 6.48. IMPRESSION AND PLAN 1. End-stage renal disease. Continue dialysis Monday, Monday and Monday. 2. Hypertension. The blood pressure is much better now. Will continue the midodrine 5 mg once a day as outpatient. He typically just takes the 5 mg 1 hour prior to dialysis. 3. Anemia of chronic disease, stable. Will continue to monitor. 4. Possible AVF site infection - will get an u/s to see if there is an abscess. On IV Vanc, will ask ID to see Job#: [id number] IRMA UP
[2017-11-14] MEDS: FOLIC ACID/CYANOCOB/PYRIDOXINE TAB PO SCH (09:42)
[2017-11-14] MEDS: METRONIDAZOLE 500MG/NS 100ML 100 ML IV SCH (09:42)
[2017-11-14] MEDS: ALLOPURINOL 100 MG TAB PO SCH (09:42)
[2017-11-14] MEDS: SODIUM BICARBONATE 650 MG TAB PO SCH (09:42)
[2017-11-14] MEDS: MIDODRINE 2.5 MG TAB PO SCH (09:42)
[2017-11-14] MEDS: INSULIN DETEMIR 100 UNIT/ML PEN SQ SCH (09:43)
--- NOTE | 2017-11-14 11:22 | Diagnostic Imaging Report ---
PROCEDURE:EXTREMITY ULTRASOUND COMPARISON:None. INDICATIONS:LT ARM FISTULA, R/O ABSCESS TECHNIQUE:Color duplex Doppler ultrasound evaluation analysis was performed in the usual manner. FINDINGS: Hypoechoic, heterogeneous material surrounds the left arm fistula medially, with an area of palpable abnormality. There is an adjacent hypoechoic region measuring 1.1 x 0.6 x 1.6 cm along the anterior margin of the fistula consistent with superimposed region of hematoma. There is no surrounding hypervascularity to suggest abscess. CONCLUSION: Left arm fistula with adjacent hypoechoic material most in keeping with hematoma. No definitive evidence of abscess. Dictated by: Reynaldo Harvey M.D. on 11/14/2017 at 11:24 Electronically approved by: Reynaldo Harvey M.D. on 11/14/2017 at 11:24
[2017-11-14 12:00] VITALS: BP 106/55
[2017-11-14 16:00] VITALS: BP 132/55
[2017-11-14] MEDS ORDERED: CEFEPIME HCL 1 GM VIAL IV SCH (17:00)
[2017-11-14 20:00] VITALS: BP 104/51
[2017-11-14] MEDS: ATORVASTATIN 40 MG TAB PO SCH (21:00)
--- NOTE | 2017-11-14 23:05 | Consultation ---
DATE OF CONSULTATION: November 14, 2017 REASON FOR CONSULTATION 1. Infected left upper extremity fistula. 2. Diarrhea. 3. UTI. HISTORY OF PRESENT ILLNESS: This is a patient who is a 72-year-old male, who is from [place], apparently came 2 weeks ago, since then, he is having recurrent abdominal pain. According to family, he is also nauseated and has diarrhea. The patient comes into the emergency room, complains of having diarrhea, abdominal pain as well as apparently a rectal bleed, fever sensation. In the emergency room, he was evaluated. He had a CT scan that has been progressed without gross abnormality. The patient, however, was admitted. Also, patient was complaining of redness and swelling of his AV graft which he had on his left upper extremity. The patient was sitting up in chair, family at the bedside. History was taken from translation from a family member. PAST MEDICAL HISTORY: End-stage renal disease, on hemodialysis; diabetes mellitus, on insulin; peripheral vascular disease; cardiomyopathy; congestive heart failure before; hypertension; depression and anxiety; functional dementia. PAST SURGICAL HISTORY: Abdominal aortic repair, dialysis access, CABG, left arm shunt, PCI, left toe amputation, peripheral vascular stent placement. SOCIAL HISTORY: There is no smoking, drug abuse or alcohol abuse. ALLERGIES: NKDA. FAMILY HISTORY: Hypertension and diabetes. REVIEW OF SYSTEMS: As per the patient. HEENT: There is no headache, visual changes, hearing changes. GI: There is no nausea, no vomiting now. Diarrhea is better. : There is no urgency, frequency. SKIN: There is no rash. JOINTS: No swelling, edema. PULMONARY: Negative. CARDIAC: Negative. EXTREMITIES: There is some redness and swelling noted on his arm where he has a fistula. The patient who was admitted, apparent he has history of end-stage renal disease, on hemodialysis Monday, Monday, Monday. The patient was started on Zosyn, Flagyl and ceftriaxone when he first came here. Apparently, his urine was positive for leukocyte esterase. He has been seen by renal. He was also seen by GI for rectal bleed. I plan for him to have EGD and colonoscopy since he never had one. LABORATORY DATA: Reviewed. Urine culture showed Enterococcus faecalis and blood culture is showing MRSA in 2 sets. White count 5.3, hemoglobin 9.2, hematocrit 30, platelet 96,000. Sodium 144. MEDICATION LIST: He is on cefepime. He is on insulin. He is on vancomycin. PHYSICAL EXAMINATION GENERAL: He is currently alert, oriented. Does not seem to be in acute distress. VITALS: Stable. Currently afebrile. HEENT: Not icteric. NECK: Supple. CHEST: Clear. COR: S1, S2. No murmur. ABDOMEN: Soft. Bowel sounds present. No tenderness. EXTREMITIES: No edema. His arms has erythema. There is edema where the fistula is. IMPRESSION 1. Methicillin-resistant Staphylococcus aureus bacteremia probably coming from the fistula. I would recommend to put him on vancomycin, obtain ultrasound of the arm. Concerned about the aneurysm. Recheck blood cultures. There is a concern, he has a history of infrarenal abdominal aortic aneurysm and stent grafting which could be infected. 2. Urinary tract infection. He is growing Enterococcus faecalis, unsure if we can discontinue his cefepime. Will add oral rifampin at the present time since I am concerned about infected foreign body. His Clostridium difficile has been negative. Will check blood cultures. Will check a vancomycin trough. I would like to keep the level at 15 to 20. May need vascular surgery evaluation for his arm. Will discuss with renal. Will follow with you. Thank you. Job#: [id number] GUERO
[2017-11-15] VITALS: BP 109/59
[2017-11-15 06:51] LABS: BASOPHILS % 0.6 % (0.0-1.0); EOSINOPHILS # (AUTO) 0.1 (0.0-0.4); EOSINOPHILS % 2.4 % (0.0-6.0); HEMATOCRIT 30.4 % (38.2-49.6); HEMOGLOBIN 9.3 g/dL (14.0-18.0); LYMPHOCYTES % 17.8 % (18.0-39.1); MEAN CORPUSCULAR HEMOGLOBIN 32.7 pg (28-32); MEAN CORPUSCULAR HGB CONC 30.6 g/dL (31-35); MONOCYTES # (AUTO) 0.6 (0.2-0.8); MONOCYTES % 10.5 % (4.4-11.3); NEUTROPHILS # (AUTO) 3.6 (2.1-6.9); NEUTROPHILS % 68.1 % (38.7-80.0); PLATELET COUNT 94 x10e3/uL (140-360); RED BLOOD COUNT 2.84 x10e6/uL (4.3-5.7)
[2017-11-15 07:10] LABS: ANION GAP 17.8 mmol/L (8-16); CREATININE, SERUM 8.12 mg/dL (0.72-1.25); POTASSIUM 4.8 mmol/L (3.5-5.1)
[2017-11-15] MEDS: INSULIN REGULAR, HUMAN 100 UNIT/1 ML 3ML VIAL SQ SCH ×4 (07:30→21:00)
--- NOTE | 2017-11-15 08:14 | Consultation ---
DATE OF CONSULTATION: November 15, 2017 REFERRING PHYSICIAN: Dr. Cordova. HISTORY OF PRESENT ILLNESS: The patient is a 72-year-old male with history of end-stage renal disease, diabetes, and cardiac disease, who was admitted to the hospital with fever and sepsis, found to have positive blood cultures from methicillin-resistant Staphylococcus aureus. Patient has been noted to have an area of redness and swelling over his left upper arm arteriovenous fistula. Patient has some pain in the area. Patient is currently on IV antibiotics, and he has a low-grade fever. Infected disease is concerned about the arteriovenous fistula. PAST MEDICAL HISTORY: Patient has a history of end-stage renal disease, diabetes, peripheral vascular disease, cardiomyopathy, coronary artery disease, hypertension, depression, anxiety. He has had previous repair of abdominal aortic aneurysm with stent, coronary artery bypass surgery, left arm AV fistula, left toe amputation. ALLERGIES: NO KNOWN ALLERGIES. MEDICATIONS: Listed in the chart. FAMILY HISTORY: Noncontributory. SOCIAL HISTORY: The patient does not smoke cigarettes or drink alcohol. REVIEW OF SYSTEMS: As stated above. He has no specific complaints at this time. PHYSICAL EXAMINATION: VITAL SIGNS: At this time are normal, still with low-grade fever. GENERAL: The patient is awake and alert. HEENT: No scleral icterus. NECK: No masses. LUNGS: Equal breath sounds are clear. CARDIAC: Regular rate and rhythm. ABDOMEN: Soft without tenderness. EXTREMITIES: In the left upper arm, there is what appears to be a brachiocephalic fistula. There is an area of erythema and swelling over the mid aspect of the fistula that is not pulsatile. ASSESSMENT: This 72-year-old male with end-stage renal disease has what appears to be an infected hematoma over the left arm arteriovenous fistula. Plan to get an ultrasound of the arm to further evaluate this. Most likely he will need drainage of this hematoma with possible repair of the underlying fistula. Hopefully, the fistula is not infected also. Plan to schedule this for tomorrow as he is to have dialysis today. Thank you for asking me to see Mr. Sharif. Job#: [id number]
[2017-11-15 08:24] VITALS: BP 118/58
[2017-11-15] MEDS: FOLIC ACID/CYANOCOB/PYRIDOXINE TAB PO SCH (08:59)
[2017-11-15] MEDS: SEVELAMER CARBONATE 800 MG TAB PO SCH ×3 (08:59→17:14)
[2017-11-15] MEDS: PANTOPRAZOLE SOD 40 MG TABEC PO SCH (08:59)
[2017-11-15 09:00] VITALS: BP 118/58
[2017-11-15] MEDS: MIDODRINE 2.5 MG TAB PO SCH (09:00)
[2017-11-15] MEDS: INSULIN DETEMIR 100 UNIT/ML PEN SQ SCH (09:00)
[2017-11-15] MEDS: RIFAMPIN 300 MG CAP PO SCH (09:00)
[2017-11-15] MEDS: SODIUM BICARBONATE 650 MG TAB PO SCH (09:00)
[2017-11-15] MEDS: ALLOPURINOL 100 MG TAB PO SCH (09:00)
--- NOTE | 2017-11-15 09:57 | Progress Note ---
DATE: November 15, 2017 RENAL PROGRESS NOTE SUBJECTIVE: Followed for end-stage renal disease, on dialysis on Monday, Monday and Monday. Tolerating it without problems. AV fistula has been cannulated. However, AV fistula still has induration around the exit cannulation site. The patient's ultrasound did not show any abscess. However, there was evidence of hematoma. General surgery has been consulted to see whether or not it might require incision and drainage. Interventional radiology will also be consulted to place a temporary catheter while the patient's infection resolves. No nausea. No vomiting. No shortness of breath. OBJECTIVE VITAL SIGNS: Have been noted and are stable. VITALS: Blood pressure currently is 118/58, pulse 75, afebrile. LUNGS: Clear to auscultation bilaterally. CARDIOVASCULAR: S1 and S2. No rub. ABDOMEN: Soft and nontender. EXTREMITIES: No edema. LABS: Have been reviewed. Potassium today is 4.8, BUN 55, creatinine 8.1. IMPRESSION AND PLAN 1. End-stage renal disease: Continue dialysis on Monday, Monday and Monday. 2. Hypertension: Blood pressure is controlled. Blood pressure runs low without the midodrine. Would continue the midodrine 5 mg daily for now. 3. Anemia of chronic disease: Stable. Will follow. 4. Bacteremia with likely source the arteriovenous fistula site: The patient's arteriovenous fistula has already been cannulated. There is no definite abscess on the ultrasound. General surgery has been consulted to see whether or not the patient may require incision and drainage. There is more likely a hematoma, but there may be a surrounding infection on top of the hematoma. Intravenous antibiotics are being continued. Infectious disease is also on the case. I will get interventional radiology to place a temporary dialysis catheter, and use that for further dialysis after today until the hematoma and/or infection completely resolves. Job#: [id number] VT
[2017-11-15 10:23] LABS: INR 1.28; PARTIAL THROMBOPLASTIN TIME 42.8 seconds (23.8-35.5)
[2017-11-15 12:15] VITALS: BP 96/47
[2017-11-15] MEDS: VANCOMYCIN 1GM/NS 250 ML 250 ML IV SCH (12:53)
[2017-11-15] MEDS ORDERED: LIDOCAINE HCL 1% LOCAL INJ 20 ML VIAL ONE (14:24)
[2017-11-15 16:33] VITALS: BP 122/58
[2017-11-15 20:07] VITALS: BP 111/53
[2017-11-15] MEDS: ATORVASTATIN 40 MG TAB PO SCH (21:42)
[2017-11-16] VITALS (7 sets, daily range): BP systolic 99–127; BP diastolic 50–57
[2017-11-16 06:33] LABS: BASOPHILS % 0.5 % (0.0-1.0); EOSINOPHILS # (AUTO) 0.2 (0.0-0.4); EOSINOPHILS % 2.5 % (0.0-6.0); HEMATOCRIT 33.5 % (38.2-49.6); HEMOGLOBIN 10.3 g/dL (14.0-18.0); LYMPHOCYTES # (AUTO) 2.1 (1.0-3.2); LYMPHOCYTES % 32.8 % (18.0-39.1); MEAN CORPUSCULAR HEMOGLOBIN 32.9 pg (28-32); MEAN CORPUSCULAR HGB CONC 30.7 g/dL (31-35); MONOCYTES # (AUTO) 0.5 (0.2-0.8); NEUTROPHILS # (AUTO) 3.6 (2.1-6.9); NEUTROPHILS % 55.9 % (38.7-80.0); PLATELET COUNT 130 x10e3/uL (140-360); RED BLOOD COUNT 3.13 x10e6/uL (4.3-5.7); RED CELL DISTRIBUTION WIDTH 16.7 % (11.7-14.4)
[2017-11-16 07:04] LABS: ANION GAP 18.9 mmol/L (8-16); CALCIUM 9.2 mg/dL (8.4-10.2); CREATININE, SERUM 5.83 mg/dL (0.72-1.25); POTASSIUM 3.9 mmol/L (3.5-5.1)
[2017-11-16] MEDS: INSULIN REGULAR, HUMAN 100 UNIT/1 ML 3ML VIAL SQ SCH ×4 (07:30→20:56)
[2017-11-16] MEDS: SEVELAMER CARBONATE 800 MG TAB PO SCH ×3 (08:00→17:00)
[2017-11-16] MEDS: RIFAMPIN 300 MG CAP PO SCH (08:23)
[2017-11-16] MEDS: SODIUM BICARBONATE 650 MG TAB PO SCH (08:23)
[2017-11-16] MEDS: PANTOPRAZOLE SOD 40 MG TABEC PO SCH (08:27)
[2017-11-16] MEDS: MIDODRINE 2.5 MG TAB PO SCH (08:27)
[2017-11-16] MEDS: FOLIC ACID/CYANOCOB/PYRIDOXINE TAB PO SCH (08:27)
[2017-11-16] MEDS: ALLOPURINOL 100 MG TAB PO SCH (08:27)
[2017-11-16] MEDS: INSULIN DETEMIR 100 UNIT/ML PEN SQ SCH (09:00)
--- NOTE | 2017-11-16 10:26 | Progress Note ---
DATE: November 16, 2017 RENAL PROGRESS NOTE SUBJECTIVE: Followed for end-stage renal disease. Tolerating dialysis Monday, Monday, Monday. Next dialysis will be tomorrow. Patient is scheduled to have incision and drainage of his left arm AV fistula hematoma, possible abscess. No nausea, no vomiting. No shortness of breath at this time. OBJECTIVE: VITAL SIGNS: Have been noted and are stable. LUNGS: Clear to auscultation bilaterally. CARDIOVASCULAR: S1 and S2. No rub. ABDOMEN: Soft, nontender. EXTREMITIES: No edema. Left arm AV fistula site around the fistula cannulation site does appear less indurated, less erythematous. LABS: Hemoglobin is 10.3. Chemistry: Potassium 3.9, BUN is 29, creatinine is 5.8. IMPRESSION AND PLAN: 1. End-stage renal disease. Continue dialysis Monday, Monday, Monday. 2. Hypertension. Blood pressure is stable. Continue to monitor. 3. Anemia of chronic disease, stable. 4. Bacteremia. Repeat cultures are negative thus far. If cultures remain negative and after the incision and drainage we are able to re-cannulate the fistula may be Monday of next week, then patient could likely be discharged at that time and we can remove the temporary dialysis catheter. For now in the morning, I will have the temporary dialysis catheter be cannulated or be used for dialysis tomorrow. Thank you once again. Job#: [id number]
[2017-11-16] MEDS ORDERED: PROTAMINE SULFATE 10 MG/ML 5 ML VIAL ONE (12:50)
[2017-11-16] MEDS ORDERED: BACITRACIN 50,000 UNIT VIAL ONE (12:50)
[2017-11-16] MEDS ORDERED: HEPARIN SOD (PORCINE) 5,000 UNIT/ML VIAL ONE (12:50)
[2017-11-16] MEDS ORDERED: SODIUM CHLORIDE 0.9% 100 ML 0 ML ONE (12:51)
[2017-11-16] MEDS ORDERED: SODIUM CHLORIDE 0.9% 500ML 500 ML ONE (13:04)
[2017-11-16] MEDS ORDERED: BUPIVACAINE HCL 0.5% INJ 30 ML VIAL INJ ONE (13:37)
[2017-11-16] MEDS ORDERED: HYDROCODONE/APAP 5MG-325MG TAB PO PRN (13:45)
--- NOTE | 2017-11-16 14:41 | Operative Report ---
DATE OF PROCEDURE: November 16, 2017 PREOPERATIVE DIAGNOSIS: Abscess left upper arm. POSTOPERATIVE DIAGNOSIS: Abscess left upper arm. PROCEDURE PERFORMED: Incision and drainage of abscess left upper arm. CHEMISTRY QUALITY CONTROL TECHNICIAN: None. ANESTHESIA: General. INDICATIONS AND FINDINGS: The patient is a 72-year-old male with fever and found to have areas of redness and swelling over the left upper arm arteriovenous fistula. At surgery there was an abscess containing bloody fluid which appeared slightly purulent, which was drained. About 3 mL of fluid was drained. There was no definite involvement of the underlying AV fistula. TECHNIQUE: After adequate general anesthesia, patient in supine position, the left arm was prepped and draped in sterile fashion with Zeke solution. Incision was made over the area of swelling, and abscess cavity was entered, which contained bloody fluid which was slightly purulent. This was evacuated, a sample taken for culture and sensitivity. The abscess tracked somewhat laterally, and this was opened up. The cavity was irrigated with saline, then packed open with 1/4 inch iodoform gauze and a sterile dressing applied. The area was also infiltrated with 1/2 percent Marcaine. Patient tolerated the procedure well. Estimated blood loss was less than 5 mL. There were no complications. All counts were correct, and the patient was taken to the recovery room in satisfactory condition. Job#: [id number] EV cc:MD MAGDALENA HORN MD
[2017-11-16] MEDS ORDERED: LIDOCAINE HCL 2% LOCAL INJ 5 ML SDV VIAL INJ ONE (18:15)
[2017-11-16] MEDS ORDERED: VASOPRESSIN INJ 20 UNIT/ML VIAL ONE (18:15)
[2017-11-16] MEDS ORDERED: SEVOFLURANE INHAL SOLN 250 ML PEN BTL ONE (18:15)
[2017-11-16] MEDS ORDERED: PROPOFOL IV EMULSION 10 MG/ML 20 ML VIAL ONE (18:15)
[2017-11-16] MEDS ORDERED: PHENYLEPHRINE HCL 1% 10 MG/ML VIAL ONE (18:15)
[2017-11-16] MEDS ORDERED: ONDANSETRON HCL INJ 2 MG/ML VIAL ONE (18:15)
[2017-11-16] MEDS ORDERED: MIDAZOLAM HCL 2 MG/2 ML VIAL ONE (18:55)
[2017-11-16] MEDS ORDERED: FENTANYL CITRATE/PF 100MCG/2 ML INJ ONE (18:55)
[2017-11-16] MEDS: ATORVASTATIN 40 MG TAB PO SCH (20:56)
[2017-11-17] VITALS (7 sets, daily range): BP systolic 98–123; BP diastolic 49–69
[2017-11-17] MEDS: MIDODRINE 2.5 MG TAB PO SCH (05:05)
[2017-11-17] MEDS: FOLIC ACID/CYANOCOB/PYRIDOXINE TAB PO SCH (05:05)
[2017-11-17 06:49] LABS: BASOPHILS % 0.8 % (0.0-1.0); EOSINOPHILS # (AUTO) 0.1 (0.0-0.4); EOSINOPHILS % 2.7 % (0.0-6.0); HEMATOCRIT 30.6 % (38.2-49.6); HEMOGLOBIN 9.5 g/dL (14.0-18.0); LYMPHOCYTES # (AUTO) 1.5 (1.0-3.2); LYMPHOCYTES % 28.5 % (18.0-39.1); MEAN CORPUSCULAR HEMOGLOBIN 32.5 pg (28-32); MEAN CORPUSCULAR VOLUME 104.8 fL (81-99); MONOCYTES # (AUTO) 0.4 (0.2-0.8); MONOCYTES % 8.2 % (4.4-11.3); NEUTROPHILS # (AUTO) 3.1 (2.1-6.9); NEUTROPHILS % 59.2 % (38.7-80.0); PLATELET COUNT 140 x10e3/uL (140-360); RED BLOOD COUNT 2.92 x10e6/uL (4.3-5.7); RED CELL DISTRIBUTION WIDTH 16.7 % (11.7-14.4)
[2017-11-17 07:13] LABS: ANION GAP 18.7 mmol/L (8-16); CALCIUM 8.6 mg/dL (8.4-10.2); CREATININE, SERUM 7.55 mg/dL (0.72-1.25); POTASSIUM 4.7 mmol/L (3.5-5.1)
[2017-11-17] MEDS: INSULIN REGULAR, HUMAN 100 UNIT/1 ML 3ML VIAL SQ SCH ×4 (07:30→20:19)
[2017-11-17] MEDS: ALLOPURINOL 100 MG TAB PO SCH (08:05)
[2017-11-17] MEDS: SEVELAMER CARBONATE 800 MG TAB PO SCH ×3 (08:05→17:00)
[2017-11-17] MEDS: RIFAMPIN 300 MG CAP PO SCH (08:05)
[2017-11-17] MEDS: SODIUM BICARBONATE 650 MG TAB PO SCH (08:05)
[2017-11-17] MEDS: PANTOPRAZOLE SOD 40 MG TABEC PO SCH (08:05)
[2017-11-17] MEDS ORDERED: SODIUM CHLORIDE 0.9% 1000ML 2,000 ML ONE (08:08)
[2017-11-17] MEDS: INSULIN DETEMIR 100 UNIT/ML PEN SQ SCH (09:00)
--- NOTE | 2017-11-17 09:02 | Diagnostic Imaging Report ---
PROCEDURE:ULTRASOUND GUIDANCE FOR VASCULAR ACCESS COMPARISON:None. INDICATIONS:TRIALYSIS CATHETER INSERTION FINDINGS:Right internal jugular vein is occluded. The left internal jugular vein is patent. Ultrasound guidance was utilized for access for left internal jugular central venous catheter placement. CONCLUSION: Patent left internal jugular vein. Successful ultrasound guidance for temporary central venous catheter placement. Dictated by: Flo Wagoner M.D. on 11/17/2017 at 9:04 Electronically approved by: Flo Wagoner M.D. on 11/17/2017 at 9:04
--- NOTE | 2017-11-17 09:13 | Diagnostic Imaging Report ---
PROCEDURE:FLUORO GUIDANCE BAMBI GUIDO PL/REM COMPARISON:Portable chest 11/12/2017. INDICATIONS:Chronic renal failure. FINDINGS:Focused sonographic evaluation of the right neck demonstrated a chronic occlusion of the right internal jugular vein. Several collaterals are noted along the right neck. The left internal jugular vein was noted to be patent and compressible. Jute Bag Clipper image of the chest demonstrated multiple partially visualized vascular stents in the expected region of the left subclavian vein. The left neck was prepped and draped in the usual sterile fashion. 1% lidocaine was infused in the subcutaneous tissues for local anesthesia. Utilizing direct sonographic guidance, a 21 gauge needle was advanced into the left internal jugular vein. A 0.018 inch wire was advanced centrally utilizing fluoroscopic guidance. An access sheath was placed over the wire to preserve the vascular access. The wire was upsized to a 0.035 inch wire. The wire was advanced into the inferior vena cava for stability. Single dilation was performed over the wire. A temporary catheter was advanced over the wire. The catheter tip was positioned within the right atrium. The wire was removed. The catheter demonstrated proper function with aspiration and flushing of sterile saline. The catheter ports were flushed with sterile saline. The catheter was secured to the skin with 3-0 Ethilon suture. A sterile dressing was applied. The patient tolerated the procedure well. There were no immediate complications. The patient was transferred to the post procedure area in stable unchanged condition for further monitoring. CONCLUSION: 1. Successful placement of a left internal jugular temporary central venous hemodialysis catheter with accessory port (Trialysis catheter, 20 cm) utilizing ultrasound and fluoroscopic guidance. 2. 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 Dictated by: Flo Wagoner M.D. on 11/17/2017 at 9:15 Electronically approved by: Flo Wagoner M.D. on 11/17/2017 at 9:15
[2017-11-17] MEDS ORDERED: HEPARIN SOD (PORCINE) 1000 UNIT/ML SDV IV PRN (09:45)
--- NOTE | 2017-11-17 09:47 | Progress Note ---
DATE: November 17, 2017 RENAL PROGRESS NOTE SUBJECTIVE: Follow for end-stage renal disease. Tolerating dialysis on Monday, Monday and Monday. Seen on dialysis treatment. Has no nausea or vomiting. No shortness of breath. OBJECTIVE VITAL SIGNS: Noted. Blood pressure 118/56, temperature 96.8, pulse 71, respirations 18. LUNGS: Clear to auscultation bilaterally. CARDIOVASCULAR: S1 and S2. No rub. ABDOMEN: Soft and nontender. EXTREMITIES: No edema. LABS: Hemoglobin 9.5. Sodium 138, potassium 4.7, chloride 99, carb 25, BUN 38, and creatinine 7.55. IMPRESSION AND PLAN 1. End-stage renal disease: Continue dialysis on Monday, Monday and Monday. 2. Hypertension, stable. 3. Anemia, chronic and stable. 4. Infected left arteriovenous fistula site: Status post incision and drainage of hematoma. Repeat blood culture is negative. The patient is on intravenous antibiotics. Will discuss plan with general surgery to see whether or not when his fistula can be recannulated. If it can be recannulated on Monday, then at that point would discontinue the temporary dialysis catheter, and the patient could be discharged on Monday next week. Job#: [id number] JOSÉ ANTONIO
[2017-11-17 11:18] LABS: ANISOCYTOSIS SLIGHT; EOSINOPHILS % (MANUAL) 3 % (0-7); HYPOCHROMASIA SLIGHT; LYMPHOCYTES % (MANUAL) 28 % (19-48); MONOCYTES % (MANUAL) 3 % (3.4-9.0); NEUTROPHILS % (MANUAL) 63 % (40-74); PLATELET ESTIMATE SLIGHTLY DECREASED; PLATELET MORPHOLOGY COMMENT FEW LARGE; RBC MORPHOLOGY COMMENT NORMAL
[2017-11-17] MEDS: VANCOMYCIN 1GM/NS 250 ML 250 ML IV SCH (12:00)
[2017-11-17] MEDS: ATORVASTATIN 40 MG TAB PO SCH (20:33)
[2017-11-18] VITALS: BP 108/54
[2017-11-18 04:00] VITALS: BP 107/51
[2017-11-18] MEDS: INSULIN REGULAR, HUMAN 100 UNIT/1 ML 3ML VIAL SQ SCH ×4 (07:30→21:00)
[2017-11-18 07:49] VITALS: BP 110/55
[2017-11-18 07:55] LABS: ANION GAP 17.1 mmol/L (8-16); CALCIUM 8.8 mg/dL (8.4-10.2); CREATININE, SERUM 5.99 mg/dL (0.72-1.25); POTASSIUM 4.1 mmol/L (3.5-5.1)
[2017-11-18] MEDS: INSULIN DETEMIR 100 UNIT/ML PEN SQ SCH (09:00)
[2017-11-18] MEDS: MIDODRINE 2.5 MG TAB PO SCH (09:00)
[2017-11-18] MEDS: RIFAMPIN 300 MG CAP PO SCH (09:00)
[2017-11-18] MEDS: SEVELAMER CARBONATE 800 MG TAB PO SCH ×3 (09:00→17:00)
[2017-11-18] MEDS: FOLIC ACID/CYANOCOB/PYRIDOXINE TAB PO SCH (09:00)
[2017-11-18] MEDS: ALLOPURINOL 100 MG TAB PO SCH (09:00)
[2017-11-18] MEDS: SODIUM BICARBONATE 650 MG TAB PO SCH (09:00)
[2017-11-18] MEDS: PANTOPRAZOLE SOD 40 MG TABEC PO SCH (09:00)
[2017-11-18 11:56] VITALS: BP 131/63
--- NOTE | 2017-11-18 14:02 | Progress Note ---
DATE: November 18, 2017 RENAL PROGRESS NOTE SUBJECTIVE: Followed for end-stage renal disease. Tolerating dialysis on Monday, Monday and Monday. The patient apparently had I and D done of his left AV fistula hematoma and infection site. The patient had dialysis yesterday by the temporary dialysis catheter. No nausea. No vomiting. No shortness of breath. OBJECTIVE VITAL SIGNS: Have been noted and are stable. Blood pressure is 131/63, pulse 66, afebrile. LUNGS: Clear to auscultation bilaterally. CARDIOVASCULAR: S1 and S2. No rubs. ABDOMEN: Soft and nontender. EXTREMITIES: No edema. LABS: Potassium is 4.1, BUN 27, creatinine is 5.9. IMPRESSION AND PLAN 1. End-stage renal disease: Continue dialysis on Monday, Monday and Monday. 2. Hypertension, stable. 3. Anemia of chronic disease, stable. 4. Bacteremia, resolved. Will discuss with general surgery when AV fistula can be recannulated. Based on that, will either place a tunneled catheter or remove the temporary dialysis catheter and start cannulating the AV fistula next week. Job#: [id number] JOSÉ ANTONIO
[2017-11-18 16:37] VITALS: BP 136/68
[2017-11-18 20:00] VITALS: BP 128/59
[2017-11-18] MEDS: ATORVASTATIN 40 MG TAB PO SCH (21:37)
[2017-11-19] VITALS: BP 103/51
[2017-11-19 04:00] VITALS: BP 138/67
[2017-11-19 07:23] VITALS: BP 116/58
[2017-11-19] MEDS: INSULIN REGULAR, HUMAN 100 UNIT/1 ML 3ML VIAL SQ SCH ×4 (07:30→21:00)
[2017-11-19] MEDS: FOLIC ACID/CYANOCOB/PYRIDOXINE TAB PO SCH (09:00)
[2017-11-19] MEDS: PANTOPRAZOLE SOD 40 MG TABEC PO SCH (09:00)
[2017-11-19] MEDS: MIDODRINE 2.5 MG TAB PO SCH (09:00)
[2017-11-19] MEDS: ALLOPURINOL 100 MG TAB PO SCH (09:00)
[2017-11-19] MEDS: SEVELAMER CARBONATE 800 MG TAB PO SCH ×3 (09:00→17:01)
[2017-11-19] MEDS: RIFAMPIN 300 MG CAP PO SCH (09:00)
[2017-11-19] MEDS: SODIUM BICARBONATE 650 MG TAB PO SCH (09:00)
[2017-11-19] MEDS: INSULIN DETEMIR 100 UNIT/ML PEN SQ SCH (09:55)
[2017-11-19 16:32] VITALS: BP 130/63
[2017-11-19 20:00] VITALS: BP 111/53
[2017-11-19] MEDS: ATORVASTATIN 40 MG TAB PO SCH (21:41)
[2017-11-19] MEDS: ACETAMINOPHEN 325 MG TAB PO PRN (21:41)
[2017-11-19 23:12] VITALS: BP 111/53
[2017-11-20] VITALS: BP 118/59
[2017-11-20 04:00] VITALS: BP 130/60
[2017-11-20 07:03] LABS: BASOPHILS % 0.4 % (0.0-1.0); EOSINOPHILS # (AUTO) 0.2 (0.0-0.4); EOSINOPHILS % 2.4 % (0.0-6.0); HEMATOCRIT 33.1 % (38.2-49.6); HEMOGLOBIN 10.3 g/dL (14.0-18.0); LYMPHOCYTES # (AUTO) 2.3 (1.0-3.2); LYMPHOCYTES % 32.4 % (18.0-39.1); MEAN CORPUSCULAR HEMOGLOBIN 32.6 pg (28-32); MEAN CORPUSCULAR HGB CONC 31.1 g/dL (31-35); MEAN CORPUSCULAR VOLUME 104.7 fL (81-99); MONOCYTES # (AUTO) 0.5 (0.2-0.8); MONOCYTES % 7.6 % (4.4-11.3); NEUTROPHILS % 56.6 % (38.7-80.0); PLATELET COUNT 222 x10e3/uL (140-360); RED BLOOD COUNT 3.16 x10e6/uL (4.3-5.7); RED CELL DISTRIBUTION WIDTH 16.5 % (11.7-14.4)
[2017-11-20 07:30] LABS: CALCIUM 8.8 mg/dL (8.4-10.2); CREATININE, SERUM 9.68 mg/dL (0.72-1.25)
[2017-11-20] MEDS: INSULIN REGULAR, HUMAN 100 UNIT/1 ML 3ML VIAL SQ SCH ×4 (07:30→20:08)
[2017-11-20 08:00] VITALS: BP 117/56
[2017-11-20] MEDS: MIDODRINE 2.5 MG TAB PO SCH (08:41)
[2017-11-20] MEDS: ALLOPURINOL 100 MG TAB PO SCH (08:41)
[2017-11-20] MEDS: SODIUM BICARBONATE 650 MG TAB PO SCH (08:41)
[2017-11-20] MEDS: INSULIN DETEMIR 100 UNIT/ML PEN SQ SCH (08:41)
[2017-11-20] MEDS: RIFAMPIN 300 MG CAP PO SCH (08:41)
[2017-11-20] MEDS: FOLIC ACID/CYANOCOB/PYRIDOXINE TAB PO SCH (08:41)
[2017-11-20] MEDS: PANTOPRAZOLE SOD 40 MG TABEC PO SCH (08:41)
[2017-11-20] MEDS: SEVELAMER CARBONATE 800 MG TAB PO SCH ×3 (08:41→17:00)
--- NOTE | 2017-11-20 09:36 | Progress Note ---
DATE: November 20, 2017 RENAL PROGRESS NOTE SUBJECTIVE: Followed for end-stage renal disease. Tolerating dialysis on Monday, Monday and Monday. Seen on dialysis treatment. No nausea. No vomiting. No shortness of breath. OBJECTIVE VITAL SIGNS: Have been noted and are stable. Blood pressure is 117/56, pulse 73, respirations 20, and afebrile. LUNGS: Clear to auscultation bilaterally. CARDIOVASCULAR: S1 and S2. No rub. ABDOMEN: Soft and nontender. EXTREMITIES: No edema. Left AV fistula site has good bruit and thrill. The patient is awaiting fistula to be recannulated. LABS: Have been reviewed. Hemoglobin is 10.3. Potassium is 5, BUN 54, creatinine 9.68. IMPRESSION AND PLAN 1. End-stage renal disease: Continue dialysis on Monday, Monday and Monday. 2. Hypertension: Blood pressure controlled. The patient's blood pressure tends to run low secondary to cardiomyopathy. Continue the low-dose midodrine for now. All ultrafiltration during dialysis. 3. Anemia, currently stable. 4. Bacteremia: Has resolved now. Arteriovenous fistula hematoma has been evacuated. Will attempt recannulization of arteriovenous fistula today. If success, remove temporary dialysis catheter. From a renal standpoint, the patient will be cleared for discharge. Job#: [id number] JOSÉ ANTONIO
[2017-11-20] MEDS: ACETAMINOPHEN 325 MG TAB PO PRN (11:53)
[2017-11-20 12:00] VITALS: BP 121/59
[2017-11-20] MEDS: VANCOMYCIN 1GM/NS 250 ML 250 ML IV SCH (12:30)
[2017-11-20 16:00] VITALS: BP 132/60
[2017-11-20 20:00] VITALS: BP 98/50
[2017-11-20] MEDS: BUDESONIDE/FORMOTEROL 160/4.5MCG INHALER INH PRN (20:15)
[2017-11-20] MEDS: ATORVASTATIN 40 MG TAB PO SCH (20:27)
[2017-11-21] VITALS: BP 118/58
[2017-11-21 04:00] VITALS: BP 130/60
[2017-11-21 07:05] LABS: ANION GAP 21.4 mmol/L (8-16); CALCIUM 9.1 mg/dL (8.4-10.2); CREATININE, SERUM 7.63 mg/dL (0.72-1.25); POTASSIUM 4.4 mmol/L (3.5-5.1)
[2017-11-21] MEDS: INSULIN REGULAR, HUMAN 100 UNIT/1 ML 3ML VIAL SQ SCH ×2 (07:30→11:30)
[2017-11-21 07:53] VITALS: BP 143/59
[2017-11-21 09:00] VITALS: BP 143/59
[2017-11-21] MEDS: SODIUM BICARBONATE 650 MG TAB PO SCH (09:00)
[2017-11-21] MEDS: ALLOPURINOL 100 MG TAB PO SCH (09:00)
[2017-11-21] MEDS: FOLIC ACID/CYANOCOB/PYRIDOXINE TAB PO SCH (09:00)
[2017-11-21] MEDS: PANTOPRAZOLE SOD 40 MG TABEC PO SCH (09:00)
[2017-11-21] MEDS: MIDODRINE 2.5 MG TAB PO SCH (09:00)
[2017-11-21] MEDS: RIFAMPIN 300 MG CAP PO SCH (09:00)
[2017-11-21] MEDS: SEVELAMER CARBONATE 800 MG TAB PO SCH ×2 (09:00→12:07)
[2017-11-21] MEDS: INSULIN DETEMIR 100 UNIT/ML PEN SQ SCH (09:00)
--- NOTE | 2017-11-21 09:13 | Progress Note ---
DATE: November 21, 2017 RENAL PROGRESS NOTE SUBJECTIVE: Followed for end-stage renal disease, dialysis on Monday, Monday and Monday. Bacteremia has resolved. AV fistula was cannulated successfully yesterday. Temporary dialysis catheter has been removed. No nausea. No vomiting. No shortness of breath. OBJECTIVE VITAL SIGNS: Noted. Blood pressure 130/60 now to 140/50, pulse 72 and afebrile. LUNGS: Clear to auscultation bilaterally. CARDIOVASCULAR: S1 and S2. No rub. ABDOMEN: Soft and nontender. EXTREMITIES: No edema. LABS: Have been reviewed. IMPRESSION AND PLAN 1. End-stage renal disease: Continue dialysis on Monday, Monday and Monday. 2. Hypertension: Stable now. 3. Anemia of chronic disease, stable. 4. Bacteremia: Resolved. Will continue antibiotics per infectious disease recommendations. The patient's arteriovenous fistula was cannulated successfully. Job#: [id number] JOSÉ ANTONIO
[2017-11-21 11:44] VITALS: BP 130/61
--- NOTE | 2017-11-21 16:10 | Discharge Summary ---
CONSULTANTS 1. Dr. Stefan Baxter, nephrology. 2. Dr. Prabhakar Deras, infectious disease. 3. Dr. Bismark Santos, general surgery. FINAL DIAGNOSES 1. Sepsis with shock. 2. Methicillin-resistant Staphylococcus aureus bacteremia. 3. Left arteriovenous fistula infection of abscess, status post incision and drainage. 4. Baseline hypertension, diabetes and end-stage renal disease on dialysis. SUMMARY: Patient is a 72-year-old male baseline dialysis patient with multiple chronic medical problems, came in with fever, very sick, ill, hypotensive. Patient received bolus IV fluid in light of being on dialysis. He was very sick with altered mental status, encephalopathy secondary to infection. Patient was found later to have MRSA bacteremia. Patient on vancomycin. Stable. He responded well with treatment. Patient was found to have AV fistula abscess. Patient underwent incision and drainage of his AV fistula done by Dr. Bismark Santos. Postoperatively the patient remained stable. Now the patient is able to use his AV fistula. He has recovered. The patient will need 8 weeks of IV antibiotic, vancomycin, post dialysis Monday, Monday and Monday. Arrangement has been made. Per RN that the patient already confirmed that the dialysis center will do antibiotics for the patient. Otherwise, the patient is stable, discharged home today. Discharge instructions as follows: 1. Resume home medication. 2. Continue with dialysis. 3. Antibiotics per Dr. Deras, 8 weeks. Monday, Monday and Monday IV antibiotics at dialysis center. 4. Follow up with Dr. Santos. 5. Follow up with Dr. Deras if needed. 6. Continue with dialysis through the observation and care of Dr. Baxter. Patient is stable, discharged back to home today per patient request. No skilled care. Resume home medication. Job#: [id number] EV
== END 2017-11-21 13:50 | disposition home or self-care (01) | DRG 314 ==
LOC: ER 00:24 → ERHOLD 06:50 → MED/SURG2 07:33
PROVIDERS: ADMIT Internal Medicine; ATTEND Internal Medicine
PROC: 5A1D70Z Performance of Urinary Filtration, Intermittent, Less than 6 Hours Per Day (ICD-10-PCS; principal; 2017-11-13)
PROC: 0H9CXZZ Drainage of Left Upper Arm Skin, External Approach (ICD-10-PCS; 2017-11-16)
PROC: 02HV33Z Insertion of Infusion Device into Superior Vena Cava, Percutaneous Approach (ICD-10-PCS; 2017-11-17)
DX: T82.7XXA Infection and inflammatory reaction due to other cardiac and vascular devices, implants and grafts, initial encounter (principal); A41.02 Sepsis due to Methicillin resistant Staphylococcus aureus; R65.21 Severe sepsis with septic shock; N18.6 End stage renal disease; E87.1 Hypo-osmolality and hyponatremia; N39.0 Urinary tract infection, site not specified; A09 Infectious gastroenteritis and colitis, unspecified; L02.414 Cutaneous abscess of left upper limb; Z16.30 Resistance to unspecified antimicrobial drugs; D64.9 Anemia, unspecified; I25.10 Atherosclerotic heart disease of native coronary artery without angina pectoris; Z99.2 Dependence on renal dialysis; E11.22 Type 2 diabetes mellitus with diabetic chronic kidney disease; E11.51 Type 2 diabetes mellitus with diabetic peripheral angiopathy without gangrene; E83.39 Other disorders of phosphorus metabolism; I95.9 Hypotension, unspecified; K64.9 Unspecified hemorrhoids; Z95.1 Presence of aortocoronary bypass graft; E87.5 Hyperkalemia; D63.8 Anemia in other chronic diseases classified elsewhere; I50.9 Heart failure, unspecified
CPT/HCPCS: 36415; 36556; 71045; 74176; 74470; 76882; 76937; 77001; 80048; 80053; 81001; 82150; 82270; 82607; 82948; 83036; 83518; 83690; 83735; 84100; 84443; 85025; 85610; 85730; 86706; 87040; 87070; 87071; 87075; 87086; 87177; 87186; 87205; 87328; 87340; 87493; 90962; 93005; 94640; 99284; C1751; J0692; J0696; J1644; J2001; J2150; J2250; J2370; J2405; J2543; J2720; J3370; J7030; J7040; J7050

== ENCOUNTER 2018-01-12 12:44 | Emergency (ER) | payer MEDICARE ==
[~2018-01-12] VITALS: Ht 165.1 cm; Wt 89.8 kg
[~2018-01-12 12:44] MED LIST changes: +ACETAMINOPHEN325 M1 PO; +PANTOPRAZOLE SO20 MG PO
[2018-01-12] MEDS ORDERED: OMEPRAZOLE40 MG PO (14:28)
[2018-01-12] MEDS ORDERED: ASPIR 8181 MG PO (14:28)
[2018-01-12] MEDS ORDERED: BRILINTA90 MG PO (14:28)
[2018-01-12] MEDS ORDERED: CILOSTAZOL100 MG PO (14:28)
[2018-01-12] MEDS ORDERED: TYLENOL WITH C1 EACH PO (14:28)
[2018-01-12 15:13] LABS: BASOPHILS # (AUTO) 0.1 (0.0-0.1); BASOPHILS % 0.9 % (0.0-1.0); EOSINOPHILS # (AUTO) 0.1 (0.0-0.4); EOSINOPHILS % 1.3 % (0.0-6.0); HEMATOCRIT 39.4 % (38.2-49.6); HEMOGLOBIN 11.8 g/dL (14.0-18.0); LYMPHOCYTES # (AUTO) 0.8 (1.0-3.2); LYMPHOCYTES % 14.8 % (18.0-39.1); MEAN CORPUSCULAR HEMOGLOBIN 32.2 pg (28-32); MEAN CORPUSCULAR HGB CONC 29.9 g/dL (31-35); MEAN CORPUSCULAR VOLUME 107.4 fL (81-99); MONOCYTES # (AUTO) 0.4 (0.2-0.8); MONOCYTES % 6.6 % (4.4-11.3); NEUTROPHILS # (AUTO) 4.1 (2.1-6.9); NEUTROPHILS % 75.9 % (38.7-80.0); RED BLOOD COUNT 3.67 x10e6/uL (4.3-5.7); RED CELL DISTRIBUTION WIDTH 16.4 % (11.7-14.4)
[2018-01-12 15:14] LABS: PLATELET COUNT 50 x10e3/uL (140-360)
[2018-01-12 15:23] LABS: INR 1.09; PROTHROMBIN TIME 13.3 seconds (11.9-14.5)
[2018-01-12 15:31] LABS: ALBUMIN/GLOBULIN RATIO 0.8 (0.8-2.0); ANION GAP 18.8 mmol/L (8-16); CALCIUM 9.7 mg/dL (8.4-10.2); POTASSIUM 4.8 mmol/L (3.5-5.1)
[2018-01-12 20:08] VITALS: BP 108/56
--- NOTE | 2018-01-13 12:54 | Cardiology Report ---
DATE OF STUDY: January 12, 2018 DOPPLER SCAN OF LOWER EXTREMITY ARTERIES The lower extremity arteries were interrogated using the duplex scanning method. Velocities were 3.88 meters per second in the proximal left femoral artery. Velocity was absent further distally in the left leg. In the right leg, velocity was 2.13. meters per second in the right femoral artery and absent further distally. Waveforms were biphasic until they became monophasic in the left dorsalis femoral artery and absent further distally. The bypass graft in the left side appears to be occluded. CONCLUSION 1. Occluded proximal left femoral artery and midright femoral artery. 2. High-grade stenosis in the proximal left profundus femoral artery with velocity of 3.8 meters per second. 3. High-grade stenosis involving the proximal right femoral artery with velocity of 2.1 meters per second. 4. The left bypass graft appears to be occluded. Job#: [id number] RI cc: CJ LUO MD
== END 2018-01-12 20:12 | disposition other institution (70) ==
LOC: ER 12:44
DX: M79.605 Pain in left leg (principal); M79.604 Pain in right leg; I70.323 Atherosclerosis of unspecified type of bypass graft(s) of the extremities with rest pain, bilateral legs; I12.0 Hypertensive chronic kidney disease with stage 5 chronic kidney disease or end stage renal disease; N18.6 End stage renal disease; Z99.2 Dependence on renal dialysis
CPT/HCPCS: 36415; 80053; 85025; 85610; 85730; 93005; 93925; 99284